=== PATIENT | male | born 1945 | race Caucasian/White ===

== ENCOUNTER 2022-11-12 11:26 | Inpatient (IN) | payer MEDICARE, MEDICAID, SELFPAY ==
[2022-11-12] VITALS (31 sets, daily range): BP systolic 87–140; BP diastolic 47–81; PULSE 44–94; RESP 0–20; TEMP 36.1–36.6; O2SAT 60–99
--- NOTE | ~2022-11-12 | XR_ITS ---
EXAMINATION: XR chest 2V DATE: 11/12/2022 11:58 INDICATION: Altered mental status TECHNIQUE: AP and lateral views of the chest are obtained. COMPARISON: None available FINDINGS: There is mild elevation of the right hemidiaphragm. There are minimal airspace opacities of the right mid and lower lung zones. There is a small right pleural effusion. No pneumothorax is iden tified The heart size is normal. Median sternotomy wires and mediastinal surgical clips are seen, lik roopa from prior coronary artery bypass grafting. A coronary artery stent is noted. There is moderate t horacic spondylosis. IMPRESSION: 1. Airspace opacities of the right middle lower lung zones, consistent with atelectasis versus pneumo quentin. 2. Small right pleural effusion. Reviewed, dictated and finalized at location A. IMPRESSION: 1. Airspace opacities of the right middle lower lung zones, consistent with ate lectasis versus pneumonia. 2. Small right pleural effusion.
--- NOTE | ~2022-11-12 | XR_ITS ---
Portable chest x-ray Comparison: 11/12/2022 Clinical History: Pneumonia Findings: Lungs are clear, without focal consolidation or pleural effusion. Cardiomediastinal silho uette is stable. Bones and soft tissues are unremarkable. Impression: Clear lungs. Reviewed, dictated and finalized at location . Impression: Clear lungs.
--- NOTE | ~2022-11-12 | CT_ITS ---
EXAMINATION: CT brain wo con INDICATION: Transient alteration of awareness COMPARISON: None TECHNIQUE: Standard unenhanced head CT. The dose-length product (DLP) was 908.00 mGy-cm. The mA was a djusted according to patient size. Iterative reconstruction technique was employed. FINDINGS: There is no acute intraparenchymal hemorrhage. No evidence of mass lesion. No evidence of a cute infarction. 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 There is moderate periventricular and s ubcortical hypodensity probably related to small vessel ischemic disease. There is moderate prominenc e of the sulci and ventricles related to cerebral atrophy. Intracranial calcified cerebral atheroscle rosis is noted. There are no extra-axial collections. There is no mass effect or midline shift. Tai es in the globes are likely from ocular lens surgery. There is mild mucosal thickening of the paranas al sinuses. IMPRESSION: 1. No acute intracranial abnormality. 2. Age related findings. Reviewed, dictated and finalized at location A.
--- NOTE | 2022-11-12 11:34 | ECG_ITS ---
Measurements Intervals [place] Rate: 58 P: 42 MS: 157 QRS: 38 QRSD: 114 T: 88 QT: 448 QTc: 441 Interpretive Statements SINUS BRADYCARDIA CANNOT RULE OUT AN OLD INFERIOR LA NO PREVIOUS ECG AVAILABLE FOR COMPARISON Electronically Signed On 11-12-2022 22:16:53 CDT by Yadira Gandara M.D.
[2022-11-12 11:59] LABS: Hematocrit 28.6 % (42.0-52.0); Hemoglobin 9.1 g/dL (14.0-18.0); Mean Corpuscular HGB Conc 31.8 g/dl (32-36); Mean Corpuscular Hemoglobin 33.5 pg (26-34); Mean Corpuscular Volume 105.1 fl (80-100); Mean Platelet Volume 10.2 fl (7.4-10.4); Platelet Count Result 163 k/mm3 (150-375); Red Blood Count 2.72 M/mm3 (4.6-6.20); Red Cell Distribution Width 14.4 % (11.5-14.5)
[2022-11-12 12:10] LABS: INR 1.1; Partial Thromboplastin Time 31.1 SECONDS (22.3-36.8); Prothrombin Time 13.7 Seconds (11.1-14.7)
--- NOTE | 2022-11-12 12:10 | ED.AMS ---
HPI - Altered Mental Status General Chief Complaint: Altered Mental Status Stated Complaint: Altered mental status Time Seen by Provider: 11/12/22 12:03 History of Present Illness HPI narrative: Patient is a 77-year-old male with a history of COPD, CKD, hypertension, CAD presenting with AMS. Patient was reportedly released from [facility] several days ago after being admitted for UTI. He went back to his nursing facility. According to the nursing facility, he was ANO x3 prior to his last admission. Since returning from [facility], he has been A&O x1. He has been noted to be hyperglycemic and hypotensive by nursing staff today. On arrival, he is oriented to self and place but not time. Blood pressures are 80s over 50s. History is limited secondary to patient's altered status but he is following commands in all extremities and he denies any pain at this time. Related Data Home Medications Medication Instructions Recorded Confirmed acetaminophen 325 mg tablet 650 mg PO Q6H PRN Pain 11/12/22 11/12/22 albuterol sulfate 90 mcg/actuation 2 puff inhalation QID PRN 11/12/22 11/12/22 aerosol inhaler Shortness Of Breath Or Wheezing allopurinol 100 mg tablet 300 mg PO DAILY 11/12/22 11/12/22 aspirin 81 mg tablet 81 mg PO DAILY 11/12/22 11/12/22 atorvastatin 80 mg tablet 80 mg PO HS 11/12/22 11/12/22 cholecalciferol (vitamin D3) 50 50 mcg PO DAILY 11/12/22 11/12/22 mcg (2,000 unit) tablet ciprofloxacin HCl 500 mg tablet 500 mg PO BID 11/12/22 11/12/22 cyanocobalamin (vitamin B-12) 1,000 mcg PO DAILY 11/12/22 11/12/22 1,000 mcg tablet (Vitamin B-12) docusate sodium 100 mg capsule 250 mg PO DAILY 11/12/22 11/12/22 (Colace) duloxetine 60 mg capsule,delayed 60 mg PO DAILY 11/12/22 11/12/22 release fluticasone 500 mcg-salmeterol 50 1 inh inhalation Q12H 11/12/22 11/12/22 mcg/dose blistr powdr for inhalation (Wixela Inhub) gabapentin 300 mg capsule 300 mg PO BID 11/12/22 11/12/22 hydrocodone 5 mg-acetaminophen 325 1 tablet PO QID 11/12/22 11/12/22 mg tablet insulin lispro 100 unit/mL 1 sliding scale dose subcut 11/12/22 11/12/22 subcutaneous pen (Humalog KwikPen USEASDIRECTD (U-100) Insulin) isosorbide mononitrate 30 mg 30 mg PO DAILY 11/12/22 11/12/22 tablet,extended release 24 hr lidocaine 4 % topical patch 1 patch topical DAILY 11/12/22 11/12/22 (Blue-Emu Lidocaine Patch) losartan 50 mg tablet 50 mg PO DAILY 11/12/22 11/12/22 melatonin 10 mg tablet 20 mg PO HS 11/12/22 11/12/22 metoprolol succinate 50 mg 50 mg PO DAILY 11/12/22 11/12/22 tablet,extended release 24 hr nitroglycerin 0.4 mg sublingual 0.4 mg sublingual Q5M PRN Chest 11/12/22 11/12/22 tablet Pain omeprazole 40 mg capsule,delayed 40 mg PO DAILY 11/12/22 11/12/22 release ondansetron 4 mg disintegrating 4 mg PO Q6H PRN Nausea 11/12/22 11/12/22 tablet polyethylene glycol 3350 17 gram 17 g PO DAILY 11/12/22 11/12/22 oral powder packet (Miralax) tamsulosin 0.4 mg capsule 0.4 mg PO HS 11/12/22 11/12/22 tiotropium bromide 18 mcg capsule 1 cap inhalation DAILY 11/12/22 11/12/22 with inhalation device Allergies Allergy/AdvReac Type Severity Reaction Status Date / Time tetracycline Allergy Mild Verified 08/18/09 15:36 Review of Systems Review of Systems: All systems reviewed & are unremarkable except as noted in HPI and below PMFSH Past Medical History Medical History (Updated 11/13/22 @ 15:31 by Quiana Weeks MD) Anemia BPH (benign prostatic hyperplasia) CAD (coronary artery disease) Gout HTN (hypertension), malignant Hyperlipidemia Pneumonia Prostate cancer Surgical History Surgical History (Updated 11/12/22 @ 14:27 by Carmencita Siu NP) H/O cataract extraction H/O prostatectomy Hx of CABG Family History Family History (Updated 11/12/22 @ 14:31 by Carmencita Siu NP) Mother Heart disease Cerebrovascular accident Father Hypertension Acute myocardial infarction Social History Social History (Updated
[2022-11-12 12:11] LABS: Alanine Aminotransferase 14 U/L (6-50); Albumin Level 2.7 g/dL (3.5-5.1); Alkaline Phosphatase 67 U/L (38-126); Anion Gap 7 mmol/L (8-16); Aspartate Amino Transferase 35 U/L (17-59); Bilirubin,Total 0.4 mg/dL (0.2-1.3); Blood Urea Nitrogen 21 mg/dL (9-20); Calcium 7.4 mg/dL (8.4-10.2); Carbon Dioxide 23 mmol/L (22-30); Chloride 108 mmol/L (98-107); Estimated CRCL calculation 38 ml/min; Estimated Glomerular Filt Rate 54; Glucose 121 mg/dL (65-110); Potassium 3.9 mmol/L (3.4-5.0); Sodium 138 mmol/L (137-145)
[2022-11-12 12:12] LABS: Lactic Acid Reflex 1.4 mmol/L (0.7-2.0)
[2022-11-12 12:16] LABS: Band Neutrophils Percent 5 % (0-6); Eosinophils Absolute Manual 0.12 K/mm3 (0.02-0.5); Eosinophils Percent Manual 3 % (0-4); Lymphocytes Absolute Manual 1.32 K/mm3 (1.1-4.5); Monocytes Percent Manual 5 % (3-9); Neutrophils Absolute Manual 2.36 K/mm3 (1.3-6.7); Neutrophils Percent Manual 54 % (46-73); Platelet Estimate Adequate (Adequate); Total Cells Counted 100
[2022-11-12 12:17] LABS: Anisocytosis 2+ (NORMAL); Poikilocytosis 2+ (NORMAL); Schistocytes None Seen (NORMAL)
[2022-11-12] MEDS: SODIUM CHLORIDE 0.9% IV 1,000 ML 999 ML IV CONT (12:17)
[2022-11-12 12:32] LABS: Appearance Urine Clear (Clear); Bilirubin Urine Negative (Negative); Blood Urine Negative (Negative); Color Urine Yellow (Yellow); Glucose Urine UA Negative (Negative); Ketones Urine Negative (Negative); Leukocyte Esterase Ur Negative LEU/UL (Negative); Nitrate Urine Negative (Negative); Protein Urine Negative (Negative); Specific Grav Ur 1.012 (1.001-1.035)
[2022-11-12 12:33] LABS: Add Urine Microscopic? NO
[2022-11-12 12:37] LABS: Fractional Inspired Oxygen 21 %; HCO3 VBG 22.2 mEq/l (24.0-30.0); PCO2 VBG 38.7 mmHg (42.0-48.0); PO2 VBG 32.5 mmHg (35.0-45.0); pH VBG 7.377 (7.300-7.400)
[2022-11-12 12:39] LABS: Device ROOM AIR
[2022-11-12] MEDS: PIPERACILLN/TAZ 3.375GM/NS50ML 3.375 GM/50 ML BAG IVPB (13:21)
[2022-11-12 13:24] LABS: Influenza A QL RT-PCR Negative (Negative); Influenza B QL RT-PCR Negative (Negative); SARS-CoV-2 RNA PCR Negative
--- NOTE | 2022-11-12 14:26 | PM.IMHP ---
H&P: HPI History of Present Illness Date/Time: 11/12/22 14:26 Chief Complaint: Altered mental status Narrative: This is a 77-year-old male patient who resides at [facility]. He has a history of COPD, chronic kidney disease, coronary artery disease and hypertension. It was reported that the patient was just discharged from [facility] several days ago for UTI. Patient was then discharged back to the nursing facility and he was alert orientated x1. The patient was noted to be hypotensive per nursing staff as well as hyperglycemic. Patient's blood pressures are 80s over 50s. Initially the patient was only orientated to himself. The patient is now answering questions but falls back asleep easily. He does follow commands. The patient was also wheezing. His white count is found to be 4.0 H&H is 9.1 and 28.6. MCV is 105.1. Influenza a and B and COVID negative. Head CT was read as no acute intracranial abnormality. Age-related findings. Chest x-ray was read as. Airspace opacities of the right middle lower lung zones, consistent with atelectasis versus pneumonia. 2. Small right pleural effusion. The patient was given IV fluids and Zosyn. The patient is being admitted to observation status on the date of service of 11/12/2022. Review of Systems Review of Systems: All systems reviewed & are unremarkable except as noted in HPI and below Constitutional: Constitutional: Reports as per HPI and Reports no additional constitutional complaints Eyes: Eyes: Reports as per HPI and Reports no additional eye complaints ENT: Reports system reviewed and no additional complaints, except as documented and Reports Normal hearing present Cardiovascular: Cardiovascular: Reports no additional cardiovascular complaints Respiratory: Respiratory: Reports no additional respiratory complaints and Reports no additional respiratory complaints Gastrointestinal: Gastrointestinal: Reports as per HPI and Reports no additional gastrointestinal complaints Musculoskeletal: Musculoskeletal: Reports no additional musculoskeletal complaints Integumentary/Breasts: Skin/Breast: Reports system reviewed and no additional complaints, except as docu and Reports as per HPI Neurologic: Reports system reviewed and no additional complaints, except as documented, Reports as per HPI and Reports Normal hearing present Psychiatric: Psychiatric: Reports no additional psychiatric complaints and Reports as per HPI Endocrine: Endocrine: Reports no additional endocrine complaints Hematologic/Lymphatic: Hematologic/Lymphatic: Reports no additional hematologic/lymphatic complaints Allergic/Immunologic: Allergic/Immunologic: Reports no additional allergic/immunologic complaints PMFSH Past Medical History Medical History (Updated 11/12/22 @ 21:15 by Carmencita Siu NP) Anemia BPH (benign prostatic hyperplasia) CAD (coronary artery disease) Gout HTN (hypertension), malignant Hyperlipidemia Pneumonia Prostate cancer Surgical History Surgical History (Updated 11/12/22 @ 14:27 by Carmencita Siu NP) H/O cataract extraction H/O prostatectomy Hx of CABG Family History Family History (Updated 11/12/22 @ 14:31 by Carmencita Siu NP) Mother Heart disease Cerebrovascular accident Father Hypertension Acute myocardial infarction Social History Social History (Updated 11/12/22 @ 21:02 by Carmencita Siu NP) Social History: He is . He has 2 daughters. 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 He is residing at [facility] Code status DNR DNI Smoking status: Former smoker Tobacco type: cigarettes Alcohol intake: unknown Substance use: unknown Spiritual care concerns: No Meds Home Medications and Allergies Home Medications Medication Instructions Recorded Confirmed Type acetaminophen 325 mg tablet 650 mg PO Q6H PRN Pain 11/12/22 11/12/22 History albuterol sulfate 90 mcg/actuation 2 puff inhalation QI
--- NOTE | 2022-11-12 15:21 | ADMGEN ---
This patient, Francisco J Campoverde, was admitted to Medical Room [facility]05 [id number] . Patient/family oriented to hospital policies and general routines including ID bracelet, bed and alarms, visiting hours, pain management, procedures, bathroom and other care routines, personal items, smoking policy, room service/diet, and visiting hours. Information on how to activate the Rapid Response Team has been discussed. Patient/Family are encouraged to report perceived risks to care and to ask questions if they do not understand what they are told or what they should do.
[2022-11-12 17:09] LABS: Glucose Point of Care 100 mg/dl (65-105)
[2022-11-12] MEDS: PIPERACILLIN/TAZOBACTAM SOD 4.5 GM in SODIUM CHLORIDE 0.9% IV 100 ML 200 ML IVPB (22:00)
[2022-11-13] VITALS (12 sets, daily range): BP systolic 113–115; BP diastolic 53–61; PULSE 52–74; RESP 16–20; TEMP 36.4–36.9; O2SAT 96–98
[2022-11-13 01:13] LABS: Glucose Point of Care 84 mg/dl (65-105)
[2022-11-13] MEDS: IPRATROPIUM BR 0.02% INH SOLN 0.5 MG/2.5 ML VIAL INHALATION ×4 (02:00→19:46)
[2022-11-13] MEDS: LEVALBUTEROL NEB 1.25 MG/3 ML 0.63 MG INHALATION ×4 (02:00→19:46)
[2022-11-13 05:38] LABS: Basophils Percent Auto 0.3 % (0.2-1.2); Eosinophils Absolute Auto 0.2 K/mm3 (0-0.3); Eosinophils Percent Auto 5.5 % (0-4.4); Hematocrit 28.7 % (42.0-52.0); Hemoglobin 9.1 g/dL (14.0-18.0); Immature Granulocyte Absolute 0.01 K/mm3 (0.00-0.031); Immature Granulocyte Percent A 0.3 % (0-0.5); Lymphocytes Absolute Auto 1.28 K/mm3 (0.9-3.2); Mean Corpuscular HGB Conc 31.7 g/dl (32-36); Mean Corpuscular Hemoglobin 33.6 pg (26-34); Mean Corpuscular Volume 105.9 fl (80-100); Mean Platelet Volume 9.2 fl (7.4-10.4); Monocytes Absolute Auto 0.2 K/mm3 (0.1-0.6); Monocytes Percent Auto 7.3 % (2.6-8.5); Neutrophils Absolute Auto 1.6 K/mm3 (1.3-6.7); Neutrophils Percent Auto 47.6 % (45.5-73.1); Platelet Count Result 136 k/mm3 (150-375); Red Blood Count 2.71 M/mm3 (4.6-6.20); Red Cell Distribution Width 14.4 % (11.5-14.5); White Blood Count 3.3 K/mm3 (4.5-10.0)
[2022-11-13 05:50] LABS: Bilirubin,Total 0.5 mg/dL (0.2-1.3); Lactate Dehydrogenase 234 U/L (120-246)
[2022-11-13 05:52] LABS: Alanine Aminotransferase 14 U/L (6-50); Albumin Level 2.6 g/dL (3.5-5.1); Alkaline Phosphatase 72 U/L (38-126); Anion Gap 3 mmol/L (8-16); Aspartate Amino Transferase 38 U/L (17-59); Bilirubin,Total 0.5 mg/dL (0.2-1.3); Blood Urea Nitrogen 17 mg/dL (9-20); Calcium 7.7 mg/dL (8.4-10.2); Carbon Dioxide 24 mmol/L (22-30); Chloride 111 mmol/L (98-107); Estimated CRCL calculation 49 ml/min; Estimated Glomerular Filt Rate > 60; Glucose 79 mg/dL (65-110); Lactic Acid Reflex 1.3 mmol/L (0.7-2.0); Lipase 25 U/L (23-300); Magnesium 1.5 mg/dL (1.6-2.3); Potassium 3.9 mmol/L (3.4-5.0); Sodium 138 mmol/L (137-145)
[2022-11-13 05:58] LABS: Transferrin 113 mg/dL (206-381)
[2022-11-13 05:59] LABS: Glucose Point of Care 89 mg/dl (65-105)
[2022-11-13] MEDS: PIPERACILLN/TAZ 3.375GM/NS50ML 3.375 GM/50 ML BAG IVPB ×4 (06:00→23:28)
[2022-11-13 06:23] LABS: Immature Reticulocyte Fraction 11.4 % (3.0-15.9); Reticulocyte Hemoglobin Conten 28.6 pg (28.2-35.7); Reticulocyte Percent 1.23 % (0.7-4.3); Reticulocytes Absolute 0.03 B/L (32.2-175.7)
[2022-11-13 06:57] LABS: Folic Acid 11.8 ng/mL (2.76->20)
[2022-11-13 07:21] LABS: Burr Cells 2+ (NORMAL); Schistocytes None Seen (NORMAL)
[2022-11-13] MEDS: FLUTICASONE/SALMETEROL 230-21 MCG INHALER 1 PUFF 2 PUFF INHALATION ×2 (08:14→19:25)
[2022-11-13 08:39] LABS: Glucose Point of Care 102 mg/dl (65-105)
[2022-11-13] MEDS: METOPROLOL SUCCINATE EXT REL 50 MG TABCR PO (08:43)
[2022-11-13] MEDS: GABAPENTIN 300 MG CAPSULE PO ×2 (08:46→21:35)
[2022-11-13] MEDS: DULoxetine HCL 60 MG CAPSULE.DR PO (08:46)
[2022-11-13] MEDS: LOSARTAN POTASSIUM 50 MG TABLET PO (08:46)
[2022-11-13] MEDS: ISOSORBIDE MONONITRATE 30 MG TAB.ER.24H PO (08:46)
[2022-11-13] MEDS: CHOLECALCIFEROL 1,000 UNITS TABLET 2000 UNITS PO (08:47)
[2022-11-13] MEDS: allopurinoL 300 MG TABLET PO (08:47)
[2022-11-13] MEDS: ASPIRIN 81 MG ENTERIC TABLET PO (08:47)
[2022-11-13] MEDS: CYANOCOBALAMIN 1,000 MCG TABLET 1000 MCG PO (08:47)
[2022-11-13 08:52] LABS: Iron < 10 ug/dL (49-181)
[2022-11-13 09:12] LABS: Hemoglobin A1C 5.6 % (<5.7)
[2022-11-13 09:16] LABS: Percent Iron Saturation 5 % (20-50)
--- NOTE | 2022-11-13 10:34 | PM.IMPN ---
Progress Note: A&P Assessment and Plan (1) Anemia: Code(s): D64.9 - Anemia, unspecified Status: Acute Assessment and Plan: His H&H is 9.1 and 28.6. With no previous labs for comparison. He is not on any anticoagulation and does not appear to have any bleeding (2) CAD (coronary artery disease): Code(s): I25.10 - Atherosclerotic heart disease of [place] coronary artery without angina pectoris Status: Acute Assessment and Plan: Continue with aspirin The patient has a history of a CABG Continue with atorvastatin (3) Hyperlipidemia: Code(s): E78.5 - Hyperlipidemia, unspecified Status: Acute Assessment and Plan: Continue with atorvastatin (4) HTN (hypertension), malignant: Code(s): I10 - Essential (primary) hypertension Status: Acute Assessment and Plan: Continue losartan, metoprolol, and isosorbide (5) Gout: Code(s): M10.9 - Gout, unspecified Status: Acute Assessment and Plan: Continue with allopurinol (6) BPH (benign prostatic hyperplasia): Code(s): N40.0 - Benign prostatic hyperplasia without lower urinary tract symptoms Status: Acute Assessment and Plan: Continue with tamsulosin (7) Hypomagnesemia: Code(s): E83.42 - Hypomagnesemia Status: Acute Assessment and Plan: replace and recheck (8) Iron deficiency anemia: Code(s): D50.9 - Iron deficiency anemia, unspecified Status: Acute Assessment and Plan: start oral iron supplementation check FOBT (9) Pleural effusion: Code(s): J90 - Pleural effusion, not elsewhere classified Status: Acute Assessment and Plan: unsure of etiology IS to bedside zosyn started 11/12 check echo check PCT/CRP Plan DVT prophylaxis with SCDs GI prophylaxis not indicated Code status DNR Subjective Date/time seen: 11/13/22 10:34 Interval history: 77-year-old male from [facility] with history of COPD, kidney disease, heart disease, diabetes and recently discharged from [facility] for treatment for a UTI is presenting with altered mental status, hypotension and hyperglycemia. No overnight events noted. No chest pain or shortness of breath. No nausea, vomiting or diarrhea. No fevers or chills. Review of Systems Review of Systems: 12 point review of systems was assessed and was negative except as noted in the HPI Exam Narrative: General: No acute distress, alert and oriented per baseline HEENT: Atraumatic, normocephalic, mucous membranes moist CV: Regular rate and rhythm, S1, S2 Lungs: Clear to auscultation bilaterally, no rales or crackles noted, no wheezes, good air entry Abdomen: Soft, nontender, nondistended Extremities: Normal to inspection Skin: No rashes noted, no lesions or wounds seen Psych: Euthymic, normal affect Objective Data Vital Signs Vital Signs: Vital Signs - 24 hr 11/12/22 11:20 11/12/22 11:53 11/12/22 12:13 Temperature 97.9 F Pulse Rate 60 60 55 L Respiratory Rate 14 8 L Blood Pressure 87/57 L Pulse Oximetry 97 Oxygen Delivery Room Air Fraction of Inspired Oxygen 11/12/22 12:14 11/12/22 12:15 11/12/22 12:17 Temperature Pulse Rate 58 L 60 59 L Respiratory Rate 16 19 17 Blood Pressure 88/62 L 101/47 L Pulse Oximetry 95 98 96 Oxygen Delivery Fraction of Inspired Oxygen 11/12/22 12:30 11/12/22 12:32 11/12/22 12:33 Temperature Pulse Rate 57 L 57 L 56 L Respiratory Rate 16 17 17 Blood Pressure 112/51 L Pulse Oximetry Oxygen Delivery Fraction of Inspired Oxygen 11/12/22 12:45 11/12/22 12:47 11/12/22 13:00 Temperature Pulse Rate 48 L 56 L 58 L Respiratory Rate 14 17 14 Blood Pressure 107/48 L Pulse Oximetry 99 98 Oxygen Delivery Fraction of Inspired Oxygen 11/12/22 13:02 11/12/22 13:03 11/12/22 13:23 Temperature Pulse Rate 77 58 L 74 Respirator
[2022-11-13 10:59] LABS: CRP 4.2 mg/dL (<1.0)
[2022-11-13] MEDS: DOCUSATE SODIUM 100 MG CAPSULE 200 MG PO (11:36)
[2022-11-13] MEDS: FERROUS SULFATE 324 MG TABLET PO (11:37)
[2022-11-13 11:40] LABS: Procalcitonin 0.1 ng/mL
[2022-11-13] MEDS: MAGNESIUM SULF 2 GM/WATER 50ML 2 GM/50 ML BAG IVPB (11:40)
[2022-11-13 12:03] LABS: Glucose Point of Care 99 mg/dl (65-105)
[2022-11-13 17:26] LABS: Glucose Point of Care 111 mg/dl (65-105)
[2022-11-13 19:58] LABS: Glucose Point of Care 136 mg/dl (65-105)
[2022-11-13] MEDS: ATORVASTATIN 40 MG TABLET 80 MG PO (21:34)
[2022-11-13] MEDS: TAMSULOSIN HCL 0.4 MG CAPSULE PO (21:35)
[2022-11-14] VITALS (13 sets, daily range): BP systolic 108–118; BP diastolic 61–82; PULSE 46–58; RESP 16–20; TEMP 36.4–36.8; O2SAT 95–100
--- NOTE | 2022-11-14 | ECHO_ITS ---
Patient Info Name: Francisco J Campoverde Age: 77 years : 1945 Gender: Male Ht: 66 in Wt: 158 lbs BSA: 1.84 m2 HR: 49 bpm BP: 115 / 82 mmHg Heart Rhythm: Sinus Rhythm Technical Quality: Fair Exam Date: 11/14/2022 10:30 AM Exam Location: [facility] Patient Status: Inpatient Admit Date: 11/13/2022 Staff Ordering Physician: Yaima Stuart DO Restaurant Attendant: Nicole Romero RDCS Attending Provider: Yaima Stuart DO Referring Physician: Narciso GOLD; Exam Type: CA echo dop color flow w con Study Info Indications - EFFUSION Complete two-dimensional, color flow and Doppler transthoracic echocardiogram is performed with contrast to opacify the left ventricle and to improve the deliniation of the left ventricle endocardial borders. Contrast/Agitated Saline Contrast/Ag. Saline: Definity Amount: 2.00 ml Administered By: Nicole Romero [facility] Existing IV Access: Yes IV Access Condition: patent with no signs of infiltration Summary 1. Technically difficult echocardiogram with limited image quality even with definity contrast injection. 2. Mild left ventricular enlargement with moderate global systolic dysfunction. 3. Grade 1 diastolic noncompliance. 4. Dilated left atrium. 5. Sclerotic but not stenotic aortic valve. Left Ventricle Left ventricular chamber dimension is moderately enlarged. Left ventricular systolic function is moderately reduced, estimated at 30-35%. The left ventricular diastolic function is grade I diastolic dysfunction. Right Ventricle Right ventricular chamber dimension is normal. Left Atria Left atrial chamber dimension is moderately enlarged. Right Atria Right atrial chamber dimension is not well visualized. Aortic Valve The aortic valve is trileaflet. There is mild aortic valve sclerosis. Pulmonic Valve The pulmonic valve is not well visualized. Mitral Valve The mitral valve has normal leaflets. Tricuspid Valve The tricuspid valve leaflets are not well visualized. Pericardium/Pleural The pericardium appears normal. Aorta The aortic root size at the sinus of Valsalva is normal. Left Ventricular Outflow Tract Name Value Normal LVOT 2D LVOT Diameter 2.09 cm LVOT Doppler LVOT Peak Gradient 3 mmHg LVOT Mean Gradient 2 mmHg LVOT VTI 17.78 cm LVOT VTI/AV VTI Ratio 0.63 LVOT Stroke Volume 60.82 ml Pulmonic Valve Name Value Normal PV Doppler PV Peak Gradient 3 mmHg Mitral Valve Name Value Normal MV Doppler
[2022-11-14] MEDS: PIPERACILLN/TAZ 3.375GM/NS50ML 3.375 GM/50 ML BAG IVPB ×4 (05:05→23:54)
[2022-11-14 05:52] LABS: Basophils Percent Auto 0.4 % (0.2-1.2); Eosinophils Absolute Auto 0.3 K/mm3 (0-0.3); Eosinophils Percent Auto 5.5 % (0-4.4); Hematocrit 29.2 % (42.0-52.0); Hemoglobin 9.1 g/dL (14.0-18.0); Immature Granulocyte Absolute 0.02 K/mm3 (0.00-0.031); Immature Granulocyte Percent A 0.4 % (0-0.5); Lymphocytes Absolute Auto 2.17 K/mm3 (0.9-3.2); Lymphocytes Percent Auto 47.7 % (18.3-44.2); Mean Corpuscular HGB Conc 31.2 g/dl (32-36); Mean Corpuscular Hemoglobin 32.5 pg (26-34); Mean Corpuscular Volume 104.3 fl (80-100); Mean Platelet Volume 9.8 fl (7.4-10.4); Monocytes Absolute Auto 0.3 K/mm3 (0.1-0.6); Monocytes Percent Auto 6.8 % (2.6-8.5); Neutrophils Absolute Auto 1.8 K/mm3 (1.3-6.7); Neutrophils Percent Auto 39.2 % (45.5-73.1); Platelet Count Result 170 k/mm3 (150-375); Red Cell Distribution Width 14.1 % (11.5-14.5); White Blood Count 4.6 K/mm3 (4.5-10.0)
[2022-11-14 05:55] LABS: IFOB Positive Control Positive; Immunochemical Fecal Occult Bl Negative (N)
[2022-11-14 06:06] LABS: Alanine Aminotransferase 15 U/L (6-50); Albumin Level 2.8 g/dL (3.5-5.1); Alkaline Phosphatase 75 U/L (38-126); Anion Gap 5 mmol/L (8-16); Aspartate Amino Transferase 30 U/L (17-59); Bilirubin,Total 0.5 mg/dL (0.2-1.3); Blood Urea Nitrogen 16 mg/dL (9-20); Calcium 7.9 mg/dL (8.4-10.2); Carbon Dioxide 25 mmol/L (22-30); Chloride 108 mmol/L (98-107); Estimated CRCL calculation 42 ml/min; Estimated Glomerular Filt Rate 59; Glucose 106 mg/dL (65-110); Potassium 3.7 mmol/L (3.4-5.0); Sodium 138 mmol/L (137-145)
[2022-11-14 06:41] LABS: Atypical Lymphocytes Present; Platelet Estimate Adequate (Adequate); Schistocytes None Seen (NORMAL)
[2022-11-14] MEDS: ISOSORBIDE MONONITRATE 30 MG TAB.ER.24H PO (08:17)
[2022-11-14] MEDS: ASPIRIN 81 MG ENTERIC TABLET PO (08:17)
[2022-11-14] MEDS: METOPROLOL SUCCINATE EXT REL 50 MG TABCR PO (08:17)
[2022-11-14] MEDS: GABAPENTIN 300 MG CAPSULE PO ×2 (08:17→20:42)
[2022-11-14] MEDS: DOCUSATE SODIUM 100 MG CAPSULE 200 MG PO (08:17)
[2022-11-14] MEDS: CHOLECALCIFEROL 1,000 UNITS TABLET 2000 UNITS PO (08:17)
[2022-11-14] MEDS: FERROUS SULFATE 324 MG TABLET PO (08:18)
[2022-11-14] MEDS: CYANOCOBALAMIN 1,000 MCG TABLET 1000 MCG PO (08:18)
[2022-11-14] MEDS: DULoxetine HCL 60 MG CAPSULE.DR PO (08:18)
[2022-11-14] MEDS: LOSARTAN POTASSIUM 50 MG TABLET PO (08:18)
[2022-11-14] MEDS: allopurinoL 300 MG TABLET PO (08:18)
[2022-11-14 08:41] LABS: Glucose Point of Care 106 mg/dl (65-105)
[2022-11-14] MEDS: FLUTICASONE/SALMETEROL 230-21 MCG INHALER 1 PUFF 2 PUFF INHALATION ×2 (09:19→21:47)
[2022-11-14] MEDS: IPRATROPIUM BR 0.02% INH SOLN 0.5 MG/2.5 ML VIAL INHALATION ×3 (09:19→21:46)
[2022-11-14] MEDS: LEVALBUTEROL NEB 1.25 MG/3 ML 0.63 MG INHALATION ×3 (09:19→21:45)
[2022-11-14] MEDS: PERFLUTREN LIPID MICROSPHERES 1.5 ML VIAL DILUTED TO 10 ML TOTAL VOLUME IV PUSH (09:32)
[2022-11-14 12:05] LABS: Glucose Point of Care 122 mg/dl (65-105)
--- NOTE | 2022-11-14 13:01 | PM.IMPN ---
Progress Note: A&P Assessment and Plan (1) Anemia: Code(s): D64.9 - Anemia, unspecified Status: Acute Assessment and Plan: His H&H is 9.1 and 28.6. continue to watch He is not on any anticoagulation and does not appear to have any bleeding (2) CAD (coronary artery disease): Code(s): I25.10 - Atherosclerotic heart disease of [place] coronary artery without angina pectoris Status: Acute Assessment and Plan: Continue with aspirin The patient has a history of a CABG Continue with atorvastatin (3) Hyperlipidemia: Code(s): E78.5 - Hyperlipidemia, unspecified Status: Acute Assessment and Plan: Continue with atorvastatin (4) HTN (hypertension), malignant: Code(s): I10 - Essential (primary) hypertension Status: Acute Assessment and Plan: Continue losartan, metoprolol, and isosorbide (5) Gout: Code(s): M10.9 - Gout, unspecified Status: Acute Assessment and Plan: Continue with allopurinol (6) BPH (benign prostatic hyperplasia): Code(s): N40.0 - Benign prostatic hyperplasia without lower urinary tract symptoms Status: Acute Assessment and Plan: Continue with tamsulosin (7) Hypomagnesemia: Code(s): E83.42 - Hypomagnesemia Status: Acute Assessment and Plan: replace and recheck (8) Iron deficiency anemia: Code(s): D50.9 - Iron deficiency anemia, unspecified Status: Acute Assessment and Plan: start oral iron supplementation check FOBT (9) Pleural effusion: Code(s): J90 - Pleural effusion, not elsewhere classified Status: Acute Assessment and Plan: Likely secondary to pneumonia Zosyn started 11/12 Await echo report Pt is still confused Subjective Date/time seen: 11/14/22 13:01 Interval history: 77-year-old male from [facility] with history of COPD, kidney disease, heart disease, diabetes and recently discharged from [facility] for treatment for a UTI is presenting with altered mental status, hypotension and hyperglycemia. CXR shows Airspace opacities of the right middle lower lung zones, consistent with atelectasis versus pneumonia. Small right pleural effusion. BC angle is negative await full report. Pt still appears confused likely secondary to pneumonia Review of Systems Review of Systems: Pt appears confused Exam Narrative: General: Disoriented x3 HEENT: Atraumatic, normocephalic, mucous membranes moist CV: Regular rate and rhythm, S1, S2 Lungs: Clear to auscultation bilaterally, no rales or crackles noted, no wheezes, good air entry Abdomen: Soft, nontender, nondistended Extremities: Normal to inspection Skin: No rashes noted, no lesions or wounds seen Objective Data Vital Signs Vital Signs: Vital Signs - 24 hr 11/13/22 14:20 11/13/22 14:29 11/13/22 14:00 Temperature 36.9 C Pulse Rate 58 L 60 61 Respiratory Rate 16 16 16 Blood Pressure 114/57 L Pulse Oximetry 96 Oxygen Delivery 11/13/22 19:47 11/13/22 20:13 11/14/22 05:29 Temperature 36.8 C 36.5 C Pulse Rate 74 52 L 48 L Respiratory Rate 16 20 20 Blood Pressure 115/61 115/82 Pulse Oximetry 98 100 Oxygen Delivery 11/14/22 08:17 11/14/22 09:22 11/14/22 09:23 Temperature Pulse Rate 56 L 50 L Respiratory Rate 16 Blood Pressure Pulse Oximetry 95 Oxygen Delivery Room Air 11/14/22 09:33 11/14/22 08:00 Temperature Pulse Rate 55 L Respiratory Rate 16 Blood Pressure Pulse Oximetry Oxygen Delivery Room Air Intake/Output Intake/Output: Intake & Output 11/11/22 11/12/22 11/13/22 11/14/22 23:59 23:59 23:59 23:59 Intake Total 1050 850 290 Output Total 200 300 Balance 850 550 290 Meds/Results Medications: Active Medications Generic Name Dose Route Start Last Admin Trade Name Colinq PRN Reason Stop Dose Admin Allopurinol 300 mg 11/13/22 09:00 0
[2022-11-14 16:52] LABS: Glucose Point of Care 169 mg/dl (65-105)
[2022-11-14] MEDS: PANTOPRAZOLE 40 MG TABLET PO (17:00)
[2022-11-14] MEDS: HYDROcodone/acetaminophen (*CRX) 5-325 MG TABLET 1 TAB PO ×2 (17:00→20:42)
[2022-11-14] MEDS: CIPROFLOXACIN 500 MG TAB PO (17:00)
[2022-11-14] MEDS: TOBRAMYCIN/DEXAMETHASONE OP 2.5 ML BTL 1 DROP EACH EYE (17:01)
[2022-11-14 20:13] LABS: Glucose Point of Care 138 mg/dl (65-105)
[2022-11-14] MEDS: ATORVASTATIN 40 MG TABLET 80 MG PO (20:41)
[2022-11-14] MEDS: MELATONIN 5 MG TABLET 20 MG PO (20:41)
[2022-11-14] MEDS: TAMSULOSIN HCL 0.4 MG CAPSULE PO (20:41)
[2022-11-15] VITALS (12 sets, daily range): BP systolic 104–118; BP diastolic 66–74; PULSE 45–70; RESP 16–20; TEMP 36.4–36.8; O2SAT 95–99
[2022-11-15] MEDS: LEVALBUTEROL NEB 1.25 MG/3 ML 0.63 MG INHALATION ×4 (03:37→20:03)
[2022-11-15 05:45] LABS: Basophils Percent Auto 0.3 % (0.2-1.2); Eosinophils Absolute Auto 0.3 K/mm3 (0-0.3); Eosinophils Percent Auto 7.9 % (0-4.4); Hematocrit 26.9 % (42.0-52.0); Hemoglobin 8.5 g/dL (14.0-18.0); Immature Granulocyte Absolute 0.02 K/mm3 (0.00-0.031); Immature Granulocyte Percent A 0.5 % (0-0.5); Lymphocytes Absolute Auto 1.89 K/mm3 (0.9-3.2); Lymphocytes Percent Auto 49.7 % (18.3-44.2); Mean Corpuscular HGB Conc 31.6 g/dl (32-36); Mean Corpuscular Hemoglobin 33.6 pg (26-34); Mean Corpuscular Volume 106.3 fl (80-100); Monocytes Absolute Auto 0.3 K/mm3 (0.1-0.6); Monocytes Percent Auto 6.8 % (2.6-8.5); Neutrophils Absolute Auto 1.3 K/mm3 (1.3-6.7); Neutrophils Percent Auto 34.8 % (45.5-73.1); Platelet Count Result 169 k/mm3 (150-375); Red Blood Count 2.53 M/mm3 (4.6-6.20); Red Cell Distribution Width 14.3 % (11.5-14.5); White Blood Count 3.8 K/mm3 (4.5-10.0)
[2022-11-15 05:48] LABS: Alanine Aminotransferase 13 U/L (6-50); Albumin Level 2.6 g/dL (3.5-5.1); Alkaline Phosphatase 65 U/L (38-126); Anion Gap 4 mmol/L (8-16); Aspartate Amino Transferase 24 U/L (17-59); Bilirubin,Total 0.5 mg/dL (0.2-1.3); Blood Urea Nitrogen 15 mg/dL (9-20); Calcium 7.9 mg/dL (8.4-10.2); Carbon Dioxide 26 mmol/L (22-30); Chloride 108 mmol/L (98-107); Estimated CRCL calculation 42 ml/min; Estimated Glomerular Filt Rate 59; Glucose 106 mg/dL (65-110); Magnesium 1.9 mg/dL (1.6-2.3); Potassium 3.9 mmol/L (3.4-5.0); Sodium 138 mmol/L (137-145)
[2022-11-15] MEDS: PIPERACILLN/TAZ 3.375GM/NS50ML 3.375 GM/50 ML BAG IVPB ×3 (05:55→17:07)
[2022-11-15 06:53] LABS: Large Platelets Present; Platelet Estimate Adequate (Adequate)
[2022-11-15 06:54] LABS: Anisocytosis 1+ (NORMAL); Burr Cells 1+ (NORMAL); Ovalocytes 1+ (NORMAL); Schistocytes Rare (NORMAL)
[2022-11-15 08:30] LABS: Glucose Point of Care 105 mg/dl (65-105)
[2022-11-15] MEDS: CIPROFLOXACIN 500 MG TAB PO (08:57)
[2022-11-15] MEDS: GABAPENTIN 300 MG CAPSULE PO ×2 (08:57→20:33)
[2022-11-15] MEDS: DOCUSATE SODIUM 100 MG CAPSULE 200 MG PO (08:57)
[2022-11-15] MEDS: CYANOCOBALAMIN 1,000 MCG TABLET 1000 MCG PO (08:57)
[2022-11-15] MEDS: ISOSORBIDE MONONITRATE 30 MG TAB.ER.24H PO (08:57)
[2022-11-15] MEDS: HYDROcodone/acetaminophen (*CRX) 5-325 MG TABLET 1 TAB PO ×4 (08:57→20:33)
[2022-11-15] MEDS: METOPROLOL SUCCINATE EXT REL 50 MG TABCR PO (08:58)
[2022-11-15] MEDS: MAGNESIUM OXIDE 400 MG TABLET PO (08:58)
[2022-11-15] MEDS: LOSARTAN POTASSIUM 50 MG TABLET PO (08:58)
[2022-11-15] MEDS: allopurinoL 300 MG TABLET PO (08:58)
[2022-11-15] MEDS: ASPIRIN 81 MG ENTERIC TABLET PO (08:58)
[2022-11-15] MEDS: PANTOPRAZOLE 40 MG TABLET PO ×2 (08:58→17:07)
[2022-11-15] MEDS: DULoxetine HCL 60 MG CAPSULE.DR PO (08:58)
[2022-11-15] MEDS: FERROUS SULFATE 324 MG TABLET PO (08:58)
[2022-11-15] MEDS: CHOLECALCIFEROL 1,000 UNITS TABLET 2000 UNITS PO (08:58)
[2022-11-15] MEDS: LIDOCAINE 5% PATCH 1 PATCH TOPICAL (08:59)
[2022-11-15] MEDS: TOBRAMYCIN/DEXAMETHASONE OP 2.5 ML BTL 1 DROP EACH EYE ×2 (08:59→17:07)
[2022-11-15] MEDS: IPRATROPIUM BR 0.02% INH SOLN 0.5 MG/2.5 ML VIAL INHALATION ×3 (09:00→20:03)
[2022-11-15] MEDS: FLUTICASONE/SALMETEROL 230-21 MCG INHALER 1 PUFF 2 PUFF INHALATION ×2 (09:00→20:04)
[2022-11-15] MEDS: UMECLIDINIUM BROMIDE 62.5 MCG ELLIPTA 1 PUFF INHALATION (09:00)
[2022-11-15 09:32] LABS: Atypical Lymphocytes Present
[2022-11-15 12:06] LABS: Glucose Point of Care 142 mg/dl (65-105)
--- NOTE | 2022-11-15 12:50 | PM.IMPN ---
Progress Note: A&P Assessment and Plan (1) Pleural effusion: Code(s): J90 - Pleural effusion, not elsewhere classified Status: Acute Assessment and Plan: Likely secondary to pneumonia Zosyn started 11/12 day 3 Pt is improving on iv abx can transition to oral steffi and consider dc in 1-2 days time Clinically confusion is improving Cxr ordered for steffi am (2) Anemia: Code(s): D64.9 - Anemia, unspecified Status: Acute Assessment and Plan: His H&H is 8.5. continue to watch FOBT is negative (3) CAD (coronary artery disease): Code(s): I25.10 - Atherosclerotic heart disease of [place] coronary artery without angina pectoris Status: Acute Assessment and Plan: Continue with aspirin The patient has a history of a CABG Continue with atorvastatin (4) Hyperlipidemia: Code(s): E78.5 - Hyperlipidemia, unspecified Status: Acute Assessment and Plan: Continue with atorvastatin (5) HTN (hypertension), malignant: Code(s): I10 - Essential (primary) hypertension Status: Acute Assessment and Plan: Continue losartan, metoprolol, and isosorbide (6) Gout: Code(s): M10.9 - Gout, unspecified Status: Acute Assessment and Plan: Continue with allopurinol (7) BPH (benign prostatic hyperplasia): Code(s): N40.0 - Benign prostatic hyperplasia without lower urinary tract symptoms Status: Acute Assessment and Plan: Continue with tamsulosin (8) Hypomagnesemia: Code(s): E83.42 - Hypomagnesemia Status: Acute Assessment and Plan: replace and recheck (9) Iron deficiency anemia: Code(s): D50.9 - Iron deficiency anemia, unspecified Status: Acute Assessment and Plan: start oral iron supplementation FOBT is negative Subjective Date/time seen: 11/15/22 12:50 Interval history: 77-year-old male from [facility] with history of COPD, kidney disease, heart disease, diabetes and recently discharged from [facility] for treatment for a UTI is presenting with altered mental status, hypotension and hyperglycemia. CXR shows Airspace opacities of the right middle lower lung zones, consistent with atelectasis versus pneumonia. Small right pleural effusion. CT head shows nil acute age related changes only BC angle is negative await full report. Pt appears less confused today Confusion on admission - likely secondary to pneumonia Review of Systems Review of Systems: Mild confusion resolving Exam Narrative: General: Disoriented x1 HEENT: Atraumatic, normocephalic, mucous membranes moist CV: Regular rate and rhythm, S1, S2 Lungs: Clear to auscultation bilaterally, no rales or crackles noted, no wheezes, good air entry Abdomen: Soft, nontender, nondistended Extremities: Normal to inspection Skin: No rashes noted, no lesions or wounds seen Objective Data Vital Signs Vital Signs: Vital Signs - 24 hr 11/14/22 13:52 11/14/22 13:53 11/14/22 14:05 Temperature Pulse Rate 46 L 53 L Respiratory Rate 16 16 Blood Pressure Pulse Oximetry 95 Oxygen Delivery Room Air Fraction of Inspired Oxygen 11/14/22 14:00 11/14/22 20:00 11/14/22 21:46 Temperature 36.4 C L Pulse Rate 56 L 53 L 56 L Respiratory Rate 16 16 16 Blood Pressure 108/61 Pulse Oximetry 100 100 Oxygen Delivery Room Air Fraction of Inspired Oxygen 21 11/14/22 21:53 11/14/22 22:00 11/15/22 03:38 Temperature 36.8 C Pulse Rate 58 L 58 L 56 L Respiratory Rate 16 20 16 Blood Pressure 118/79 Pulse Oximetry 99 Oxygen Delivery Fraction of Inspired Oxygen 11/15/22 03:45 11/15/22 06:00 11/15/22 08:58 Temperature 36.8 C Pulse Rate 56 L 58 L 60 Respiratory Rate 16 20 Blood Pressure 118/74 Pulse Oximetry 99 Oxygen Delivery Fraction of Inspired Oxygen 11/15/22 09:00 11/15/22 09:00 11/15/22 09:10 Temper
[2022-11-15 17:14] LABS: Glucose Point of Care 157 mg/dl (65-105)
[2022-11-15] MEDS: TAMSULOSIN HCL 0.4 MG CAPSULE PO (20:33)
[2022-11-15] MEDS: MELATONIN 5 MG TABLET 20 MG PO (20:33)
[2022-11-15] MEDS: ATORVASTATIN 40 MG TABLET 80 MG PO (20:33)
[2022-11-16] VITALS (9 sets, daily range): BP systolic 124–135; BP diastolic 58; PULSE 56–87; RESP 16–18; TEMP 36.3–36.4; O2SAT 97–100
[2022-11-16] MEDS: PIPERACILLN/TAZ 3.375GM/NS50ML 3.375 GM/50 ML BAG IVPB ×3 (00:14→12:29)
[2022-11-16 00:27] LABS: Glucose Point of Care 134 mg/dl (65-105)
[2022-11-16] MEDS: LEVALBUTEROL NEB 1.25 MG/3 ML 0.63 MG INHALATION ×3 (02:01→13:00)
[2022-11-16] MEDS: IPRATROPIUM BR 0.02% INH SOLN 0.5 MG/2.5 ML VIAL INHALATION ×3 (02:02→13:00)
[2022-11-16 05:47] LABS: Basophils Percent Auto 0.6 % (0.2-1.2); Eosinophils Absolute Auto 0.2 K/mm3 (0-0.3); Eosinophils Percent Auto 6.8 % (0-4.4); Hematocrit 28.9 % (42.0-52.0); Hemoglobin 8.7 g/dL (14.0-18.0); Immature Granulocyte Absolute 0.01 K/mm3 (0.00-0.031); Immature Granulocyte Percent A 0.3 % (0-0.5); Lymphocytes Absolute Auto 1.26 K/mm3 (0.9-3.2); Lymphocytes Percent Auto 37.2 % (18.3-44.2); Mean Corpuscular HGB Conc 30.1 g/dl (32-36); Mean Corpuscular Hemoglobin 33.3 pg (26-34); Mean Corpuscular Volume 110.7 fl (80-100); Mean Platelet Volume 10.1 fl (7.4-10.4); Monocytes Absolute Auto 0.2 K/mm3 (0.1-0.6); Monocytes Percent Auto 6.8 % (2.6-8.5); Neutrophils Absolute Auto 1.6 K/mm3 (1.3-6.7); Neutrophils Percent Auto 48.3 % (45.5-73.1); Platelet Count Result 192 k/mm3 (150-375); Red Blood Count 2.61 M/mm3 (4.6-6.20); Red Cell Distribution Width 14.5 % (11.5-14.5); White Blood Count 3.4 K/mm3 (4.5-10.0)
[2022-11-16 05:58] LABS: Alanine Aminotransferase 12 U/L (6-50); Albumin Level 2.7 g/dL (3.5-5.1); Alkaline Phosphatase 64 U/L (38-126); Anion Gap 8 mmol/L (8-16); Aspartate Amino Transferase 19 U/L (17-59); Bilirubin,Total 0.4 mg/dL (0.2-1.3); Blood Urea Nitrogen 12 mg/dL (9-20); Carbon Dioxide 22 mmol/L (22-30); Chloride 109 mmol/L (98-107); Estimated CRCL calculation 45 ml/min; Estimated Glomerular Filt Rate > 60; Glucose 125 mg/dL (65-110); Magnesium 1.8 mg/dL (1.6-2.3); Potassium 4.1 mmol/L (3.4-5.0); Sodium 139 mmol/L (137-145)
[2022-11-16 06:39] LABS: Ovalocytes 1+ (NORMAL); Platelet Estimate Adequate (Adequate)
[2022-11-16 06:40] LABS: Atypical Lymphocytes Present; Crenated RBC 1+ (NORMAL); Schistocytes None Seen (NORMAL)
[2022-11-16] MEDS: FLUTICASONE/SALMETEROL 230-21 MCG INHALER 1 PUFF 2 PUFF INHALATION (07:00)
[2022-11-16] MEDS: UMECLIDINIUM BROMIDE 62.5 MCG ELLIPTA 1 PUFF INHALATION (07:00)
[2022-11-16 08:09] LABS: Glucose Point of Care 118 mg/dl (65-105)
[2022-11-16] MEDS: DOCUSATE SODIUM 100 MG CAPSULE 200 MG PO (09:31)
[2022-11-16] MEDS: HYDROcodone/acetaminophen (*CRX) 5-325 MG TABLET 1 TAB PO ×2 (09:31→12:29)
[2022-11-16] MEDS: FERROUS SULFATE 324 MG TABLET PO (09:32)
[2022-11-16] MEDS: MAGNESIUM OXIDE 400 MG TABLET PO (09:32)
[2022-11-16] MEDS: DULoxetine HCL 60 MG CAPSULE.DR PO (09:32)
[2022-11-16] MEDS: METOPROLOL SUCCINATE EXT REL 50 MG TABCR PO (09:32)
[2022-11-16] MEDS: CYANOCOBALAMIN 1,000 MCG TABLET 1000 MCG PO (09:32)
[2022-11-16] MEDS: GABAPENTIN 300 MG CAPSULE PO (09:32)
[2022-11-16] MEDS: CHOLECALCIFEROL 1,000 UNITS TABLET 2000 UNITS PO (09:32)
[2022-11-16] MEDS: ASPIRIN 81 MG ENTERIC TABLET PO (09:32)
[2022-11-16] MEDS: LOSARTAN POTASSIUM 50 MG TABLET PO (09:32)
[2022-11-16] MEDS: ISOSORBIDE MONONITRATE 30 MG TAB.ER.24H PO (09:33)
[2022-11-16] MEDS: LIDOCAINE 5% PATCH 1 PATCH TOPICAL (09:33)
[2022-11-16] MEDS: allopurinoL 300 MG TABLET PO (09:33)
[2022-11-16] MEDS: PANTOPRAZOLE 40 MG TABLET PO (09:33)
[2022-11-16] MEDS: MULTIVIT/MIN/PREN/FOL AC/IRON TABLET 1 TAB PO (09:33)
[2022-11-16] MEDS: TOBRAMYCIN/DEXAMETHASONE OP 2.5 ML BTL 1 DROP EACH EYE (09:34)
[2022-11-16 12:10] LABS: Glucose Point of Care 123 mg/dl (65-105)
--- NOTE | 2022-11-16 13:27 | PM.DS ---
DS: Admitting Diagnosis Discharge Date 11/16/22 Admitting Diagnosis Pneumonia DS: Discharge Diagnosis Discharge Diagnosis (1) Pleural effusion: Code(s): J90 - Pleural effusion, not elsewhere classified Status: Acute Assessment and Plan: Antibiotics on discharge. Likely secondary to pneumonia Chest x-ray improved (2) Anemia: Code(s): D64.9 - Anemia, unspecified Status: Acute Assessment and Plan: His H&H is 8.5. continue to watch FOBT is negative (3) CAD (coronary artery disease): Code(s): I25.10 - Atherosclerotic heart disease of [place] coronary artery without angina pectoris Status: Acute Assessment and Plan: Continue with aspirin The patient has a history of a CABG Continue with atorvastatin (4) Hyperlipidemia: Code(s): E78.5 - Hyperlipidemia, unspecified Status: Acute Assessment and Plan: Continue with atorvastatin (5) HTN (hypertension), malignant: Code(s): I10 - Essential (primary) hypertension Status: Acute Assessment and Plan: Continue losartan, metoprolol, and isosorbide (6) Gout: Code(s): M10.9 - Gout, unspecified Status: Acute Assessment and Plan: Continue with allopurinol (7) BPH (benign prostatic hyperplasia): Code(s): N40.0 - Benign prostatic hyperplasia without lower urinary tract symptoms Status: Acute Assessment and Plan: Continue with tamsulosin (8) Hypomagnesemia: Code(s): E83.42 - Hypomagnesemia Status: Acute Assessment and Plan: replace and recheck (9) Iron deficiency anemia: Code(s): D50.9 - Iron deficiency anemia, unspecified Status: Acute Assessment and Plan: start oral iron supplementation FOBT is negative DS: Summary Hospital Course Hospital Course: 77-year-old male came in with a pneumonia. Treated with antibiotics and has improved. Chest x-ray now improved. Antibiotics on discharge. Time Spent with Patient Time attestation: Total time spent providing and/or coordinating discharge services: Exam Narrative: General: Disoriented x1 HEENT: Atraumatic, normocephalic, mucous membranes moist CV: Regular rate and rhythm, S1, S2 Lungs: Clear to auscultation bilaterally, no rales or crackles noted, no wheezes, good air entry Abdomen: Soft, nontender, nondistended Extremities: Normal to inspection Skin: No rashes noted, no lesions or wounds seen DS: Data Data Completed and Pending Labs on day of discharge: Labs from last 24 hours 11/16/22 11/16/22 11/16/22 12:06 08:05 05:22 WBC RBC Hgb Hct MCV MCH MCHC RDW Plt Count MPV Immature Gran % (Auto) Neut % (Auto) Lymph % (Auto) [place] % (Auto) Eos % (Auto) Baso % (Auto) Lymph # (Auto) [place] # (Auto) Eos # (Auto) Baso # (Auto) Abs Immat Gran (auto) Absolute Neuts (auto) Absolute Nucleated RBC Nucleated RBC % Atypical Lymphocytes Platelet Estimate Ovalocytes Crenated Cell Schistocytes Sodium 139 Potassium 4.1 Chloride 109 H Carbon Dioxide 22 Anion Gap 8 BUN 12 Creatinine 1.10 Estim Creat Clear Calc 45 Estimated GFR > 60 Glucose 125 H POC Capillary Glucose 123 H 118 H Calcium 8.0 L Magnesium 1.8 Total Bilirubin 0.4 AST 19 ALT 12 Alkaline Phosphatase 64 Total Protein 5.0 L Albumin 2.7 L 11/16/22 11/16/22 11/15/22 05:22 00:24 17:06 WBC 3.4 L RBC 2.61 L Hgb 8.7 L Hct 28.9 L MCV 110.7 H MCH 33.3 MCHC 30.1 L RDW 14.5 Plt Count 192 MPV 10.1 Immature Gran % (Auto) 0.3 Neut % (Auto) 48.3 Lymph % (Auto) 37.2 [place] % (Auto) 6.8 Eos % (Auto) 6.8 H Baso % (Auto) 0.6 Lymph # (Auto) 1.26 [place] # (Auto) 0.2 Eos # (Auto) 0.2 Baso # (Auto) 0.0 Abs Immat Gran (auto)
[2022-11-16 15:26] LABS: EDCOVIDSCREEN Negative (Negative)
--- NOTE | 2022-11-16 15:27 | PC.NURSE ---
RN called [facility] twice to give report to the nurse with no answer.
[2022-11-16 15:56] LABS: Albumin 2.3 g/dL (3.8-4.8); Alpha 1 Globulin 0.3 g/dL (0.2-0.3); Alpha 2 Globulin 0.8 g/dL (0.5-0.9); Beta 1 Globulin 0.3 g/dL (0.4-0.6); Gamma Globulin 0.7 g/dL (0.8-1.7); Protein, Total 4.7 g/dL (6.1-8.1)
[2022-11-19 19:29] LABS: Soluble Transferrin Receptor 1.15 mg/L (0.76-1.76)
[2022-11-21 00:27] LABS: Creatinine, Random Urine 76 mg/dL (20-320); Total Protein/Creatinine Ratio 316 mg/g creat (25-148)
== END 2022-11-16 16:00 | DRG 194 ==
LOC: ANHED 12:03 → ANH3MED 14:50
PROVIDERS: Emergency Medicine; Nurse Practitioner; Admitting Provider Student in an Organized Health Care Education/Training Program; Emergency Provider Emergency Medicine; Visit Provider Chiropractor
DX: J18.9 Pneumonia, unspecified organism (principal); I13.0 Hypertensive heart and chronic kidney disease with heart failure and stage 1 through stage 4 chronic kidney disease, or unspecified chronic kidney disease; J90 Pleural effusion, not elsewhere classified; J44.0 Chronic obstructive pulmonary disease with (acute) lower respiratory infection; Z20.822 Contact with and (suspected) exposure to COVID-19; I25.10 Atherosclerotic heart disease of native coronary artery without angina pectoris; I50.9 Heart failure, unspecified; E11.22 Type 2 diabetes mellitus with diabetic chronic kidney disease; N18.9 Chronic kidney disease, unspecified; E11.65 Type 2 diabetes mellitus with hyperglycemia; G47.33 Obstructive sleep apnea (adult) (pediatric); I95.9 Hypotension, unspecified; D50.9 Iron deficiency anemia, unspecified; E78.5 Hyperlipidemia, unspecified; F32.A Depression, unspecified; M10.9 Gout, unspecified; N40.0 Benign prostatic hyperplasia without lower urinary tract symptoms; E83.42 Hypomagnesemia; Z95.1 Presence of aortocoronary bypass graft; Z85.46 Personal history of malignant neoplasm of prostate; Z98.49 Cataract extraction status, unspecified eye; Z87.891 Personal history of nicotine dependence; I25.2 Old myocardial infarction
CPT/HCPCS: 36415; 70450; 71045; 71046; 80053; 81003; 82247; 82248; 82274; 82570; 82607; 82728; 82746; 82803; 82948; 83036; 83540; 83550; 83605; 83615; 83690; 83735; 84145; 84155; 84156; 84165; 84166; 84238; 84443; 84466; 85025; 85046; 85610; 85730; 86140; 86880; 87040; 87426; 87636; 93005; 94640; 96361; 96365; 96367; 96376; 99285; A9270; C8929; C9803; G0378; J2543; J3475; J7030; Q9957

== ENCOUNTER 2022-12-03 04:05 | Inpatient (IN) | payer MEDICARE, MEDICAID, SELFPAY ==
[2022-12-03] VITALS (24 sets, daily range): BP systolic 80–114; BP diastolic 45–71; PULSE 68–100; RESP 15–24; TEMP 36.4–38.3; O2SAT 95–100; BMI 23.8
--- NOTE | ~2022-12-03 | XR_ITS ---
EXAMINATION: XR chest 1V portable DATE: 12/03/2022 05:02 INDICATION: Weakness. TECHNIQUE: A single frontal view of the chest was obtained. COMPARISON: Chest single view 11/16/2022 FINDINGS: There are airspace opacities in the lower lung zones. No pleural effusion or pneumothorax. The heart size is normal. Median sternotomy wires and mediastinal surgical clips are seen, likely fro m prior coronary artery bypass grafting. IMPRESSION: 1. Airspace opacities in the lower lung zones, consistent with atelectasis versus pneumonia. Reviewed, dictated and finalized at location A. IMPRESSION: 1. Airspace opacities in the lower lung zones, consistent with atelectasis vers us pneumonia.
--- NOTE | 2022-12-03 04:12 | ECG_ITS ---
Measurements Intervals [place] Rate: 99 P: 65 GA: 163 QRS: 39 QRSD: 106 T: -11 QT: 354 QTc: 455 Interpretive Statements SINUS RHYTHM ATRIAL PREMATURE COMPLEX CONSIDER INFERIOR INFARCT, AGE INDETERMINATE BORDERLINE ST-T WAVE ABNORMALITY- INF/HIGH LAT LEADS BASELINE ARTIFACT- I, III, AVL, AVF ABNORMAL ECG COMPARED TO ECG 11/12/2022 11:28:03 SINUS RHYTHM NOW PRESENT Electronically Signed On 12-03-2022 8:50:54 CDT by Sunil Guzman D.O.
[2022-12-03] MEDS: ACETAMINOPHEN 500 MG TABLET 1000 MG PO (04:32)
[2022-12-03] MEDS: SODIUM CHLORIDE 0.9% IV 1,000 ML 999 ML IV CONT (04:33)
--- NOTE | 2022-12-03 04:39 | ED.GENADULT ---
HPI - General Adult General Chief complaint: Weakness Stated complaint: LETHARGY, FEBRILE Time Seen by Provider: 12/03/22 04:12 History of Present Illness HPI narrative: Patient is a 77-year-old gentleman who presents the emergency department with chief complaint of altered mental status. Per the local nursing facility they were doing the rounds at 4:00 in the morning and attempted to wake the patient up. When they woke him up he felt hot to the touch had a temperature of 102 and was very slow to respond. The patient has no other complaints at this time denies chest pain denies shortness of breath denies abdominal pain vomiting or diarrhea. Related Data Home Medications Medication Instructions Recorded Confirmed acetaminophen 325 mg tablet 650 mg PO Q6H PRN Pain 11/12/22 11/12/22 albuterol sulfate 90 mcg/actuation 2 puff inhalation QID PRN 11/12/22 11/12/22 aerosol inhaler Shortness Of Breath Or Wheezing allopurinol 100 mg tablet 300 mg PO DAILY 11/12/22 11/12/22 aspirin 81 mg tablet 81 mg PO DAILY 11/12/22 11/12/22 atorvastatin 80 mg tablet 80 mg PO HS 11/12/22 11/12/22 cholecalciferol (vitamin D3) 50 50 mcg PO DAILY 11/12/22 11/12/22 mcg (2,000 unit) tablet ciprofloxacin HCl 500 mg tablet 500 mg PO BID 11/12/22 11/12/22 cyanocobalamin (vitamin B-12) 1,000 mcg PO DAILY 11/12/22 11/12/22 1,000 mcg tablet (Vitamin B-12) docusate sodium 100 mg capsule 250 mg PO DAILY 11/12/22 11/12/22 (Colace) duloxetine 60 mg capsule,delayed 60 mg PO DAILY 11/12/22 11/12/22 release fluticasone 500 mcg-salmeterol 50 1 inh inhalation Q12H 11/12/22 11/12/22 mcg/dose blistr powdr for inhalation (Wixela Inhub) gabapentin 300 mg capsule 300 mg PO BID 11/12/22 11/12/22 hydrocodone 5 mg-acetaminophen 325 1 tablet PO QID 11/12/22 11/12/22 mg tablet insulin lispro 100 unit/mL 1 sliding scale dose subcut 11/12/22 11/12/22 subcutaneous pen (Humalog KwikPen USEASDIRECTD (U-100) Insulin) isosorbide mononitrate 30 mg 30 mg PO DAILY 11/12/22 11/12/22 tablet,extended release 24 hr lidocaine 4 % topical patch 1 patch topical DAILY 11/12/22 11/12/22 (Blue-Emu Lidocaine Patch) losartan 50 mg tablet 50 mg PO DAILY 11/12/22 11/12/22 melatonin 10 mg tablet 20 mg PO HS 11/12/22 11/12/22 metoprolol succinate 50 mg 50 mg PO DAILY 11/12/22 11/12/22 tablet,extended release 24 hr nitroglycerin 0.4 mg sublingual 0.4 mg sublingual Q5M PRN Chest 11/12/22 11/12/22 tablet Pain omeprazole 40 mg capsule,delayed 40 mg PO DAILY 11/12/22 11/12/22 release ondansetron 4 mg disintegrating 4 mg PO Q6H PRN Nausea 11/12/22 11/12/22 tablet polyethylene glycol 3350 17 gram 17 g PO DAILY 11/12/22 11/12/22 oral powder packet (Miralax) tamsulosin 0.4 mg capsule 0.4 mg PO HS 11/12/22 11/12/22 tiotropium bromide 18 mcg capsule 1 cap inhalation DAILY 11/12/22 11/12/22 with inhalation device magnesium oxide 400 mg PO DAILY 11/13/22 11/13/22 insulin detemir U-100 100 unit/mL 10 unit subcut 12/03/22 (3 mL) subcutaneous pen (Levemir FlexPen) Allergies Allergy/AdvReac Type Severity Reaction Status Date / Time tetracycline Allergy Mild Unknown Verified 12/03/22 04:59 Review of Systems Review of Systems: A 10 system review of systems was completed on the patient and is negative except for what is stated in the HPI. Nursing and ancillary documentation was reviewed. [facility] Past Medical History Medical History Anemia BPH (benign prostatic hyperplasia) CAD (coronary artery disease) Gout HTN (hypertension), malignant Hyperlipidemia Pneumonia Prostate cancer Surgical History Surgical History H/O cataract extraction H/O prostatectomy Hx of CABG Family History Family History Mother Heart disease Cerebrovascular accident Father Hypertension A
[2022-12-03 04:54] LABS: Basophils Percent Auto 0.3 % (0.2-1.2); Eosinophils Absolute Auto 0.1 K/mm3 (0-0.3); Eosinophils Percent Auto 0.8 % (0-4.4); Hematocrit 32.5 % (42.0-52.0); Hemoglobin 10.2 g/dL (14.0-18.0); Immature Granulocyte Absolute 0.05 K/mm3 (0.00-0.031); Immature Granulocyte Percent A 0.5 % (0-0.5); Lymphocytes Absolute Auto 1.29 K/mm3 (0.9-3.2); Lymphocytes Percent Auto 11.9 % (18.3-44.2); Mean Corpuscular HGB Conc 31.4 g/dl (32-36); Mean Corpuscular Hemoglobin 33.4 pg (26-34); Mean Corpuscular Volume 106.6 fl (80-100); Mean Platelet Volume 10.2 fl (7.4-10.4); Monocytes Absolute Auto 0.7 K/mm3 (0.1-0.6); Monocytes Percent Auto 6.4 % (2.6-8.5); Neutrophils Absolute Auto 8.7 K/mm3 (1.3-6.7); Neutrophils Percent Auto 80.1 % (45.5-73.1); Platelet Count Result 195 k/mm3 (150-375); Red Blood Count 3.05 M/mm3 (4.6-6.20); Red Cell Distribution Width 16.1 % (11.5-14.5); White Blood Count 10.8 K/mm3 (4.5-10.0)
[2022-12-03 05:06] LABS: Appearance Urine Clear (Clear); Bilirubin Urine Negative (Negative); Blood Urine Negative (Negative); Color Urine Yellow (Yellow); Glucose Urine UA Negative (Negative); Ketones Urine Negative (Negative); Leukocyte Esterase Ur Negative LEU/UL (Negative); Nitrate Urine Negative (Negative); Protein Urine Negative (Negative); Specific Grav Ur 1.013 (1.001-1.035); pH Urine 8.5 (5.0-9.0)
[2022-12-03 05:08] LABS: Alanine Aminotransferase 14 U/L (6-50); Albumin Level 3.2 g/dL (3.5-5.1); Alkaline Phosphatase 74 U/L (38-126); Anion Gap 6 mmol/L (8-16); Aspartate Amino Transferase 40 U/L (17-59); Bilirubin,Total 0.9 mg/dL (0.2-1.3); Blood Urea Nitrogen 22 mg/dL (9-20); Calcium 8.3 mg/dL (8.4-10.2); Carbon Dioxide 21 mmol/L (22-30); Chloride 109 mmol/L (98-107); Estimated CRCL calculation 41 ml/min; Estimated Glomerular Filt Rate 49; Glucose 91 mg/dL (65-110); Potassium 5.1 mmol/L (3.4-5.0); Sodium 136 mmol/L (137-145)
[2022-12-03 05:10] LABS: Alanine Aminotransferase 14 U/L (6-50); Albumin Level 3.3 g/dL (3.5-5.1); Alkaline Phosphatase 75 U/L (38-126); Anion Gap 7 mmol/L (8-16); Aspartate Amino Transferase 40 U/L (17-59); Bilirubin,Total 0.9 mg/dL (0.2-1.3); Blood Urea Nitrogen 22 mg/dL (9-20); Calcium 8.3 mg/dL (8.4-10.2); Carbon Dioxide 20 mmol/L (22-30); Chloride 109 mmol/L (98-107); Estimated CRCL calculation 38 ml/min; Estimated Glomerular Filt Rate 45; Glucose 92 mg/dL (65-110); Lactic Acid Reflex 1.2 mmol/L (0.7-2.0); Sodium 136 mmol/L (137-145)
[2022-12-03 05:18] LABS: Add Urine Microscopic? NO
[2022-12-03 05:25] LABS: Platelet Estimate Adequate (Adequate)
[2022-12-03 05:26] LABS: Anisocytosis 2+ (NORMAL); Burr Cells 3+ (NORMAL); Crenated RBC 3+ (NORMAL); Macrocytosis 2+ (NORMAL); Microcytosis 1+ (NORMAL); Poikilocytosis 3+ (NORMAL)
[2022-12-03 05:27] LABS: Acanthocytes 1+ (NORMAL); Schistocytes 1+ (NORMAL)
[2022-12-03 05:28] LABS: Lipase < 10 U/L (23-300)
[2022-12-03 05:35] LABS: Influenza A QL RT-PCR Negative (Negative); Influenza B QL RT-PCR Negative (Negative); RSV RNA, RT-PCR Negative (Negative); SARS-CoV-2 RNA PCR Negative (Negative)
[2022-12-03 05:39] LABS: Procalcitonin 1.4 ng/mL
[2022-12-03] MEDS: ENOXAPARIN 80 MG/0.8 ML SYRINGE 70 MG SUB-Q ×2 (05:53→20:18)
[2022-12-03] MEDS: ASPIRIN 81 MG CHEWABLE TABLET 324 MG PO (05:53)
--- NOTE | 2022-12-03 07:43 | PC.NURSE ---
Lab called for new green top. SO [place] made aware.
[2022-12-03] MEDS: SODIUM CHLORIDE 0.9% IV 500 ML IV CONT (08:29)
[2022-12-03 08:38] LABS: Glucose Point of Care 150 mg/dl (65-105)
--- NOTE | 2022-12-03 09:38 | ADMGEN ---
This patient, Francisco J Campoverde, was admitted to IMU Room 204-01 at 0804. Patient/family oriented to hospital policies and general routines including ID bracelet, bed and alarms, visiting hours, pain management, procedures, bathroom and other care routines, personal items, smoking policy, room service/diet, and visiting hours. Information on how to activate the Rapid Response Team has been discussed. Patient/Family are encouraged to report perceived risks to care and to ask questions if they do not understand what they are told or what they should do.
--- NOTE | 2022-12-03 10:44 | PM.IMHP ---
H&P: HPI History of Present Illness Date/Time: 12/03/22 10:44 Chief Complaint: altered mental status Narrative: This is a 77-year-old male who presents to the ED with complaint of altered mental status he is brought from the shelter. Is a poor historian. While at [facility] in the morning he was hard to wake up and had a temperature 102? and hence brought to the ED for evaluation. Is currently feeling better and is eating his breakfast. He denies any chest pain shortness of breath abdominal pain nausea vomiting. He denies any leg swelling as well. He also reports no cough. ED evaluation revealed airspace opacities in the lower lung zones in his chest x-ray. He was recently admitted and had ejection fraction of 30-35 person is echocardiogram done on 11/14/2022. His troponin came back elevated at 6.5. EKG had nonspecific ST-T changes. No acute ST elevations noted. He was given some antibiotics for possible pneumonia and sepsis and admitted for further evaluation and management Review of Systems Review of Systems: - CONSTITUTIONAL: Denies weight loss, reported fever and chills. - HEENT: Denies changes in vision and hearing - RESPIRATORY: Denies SOB and cough. - CV: Denies palpitations and CP. - GI: Denies abdominal pain, nausea, vomiting and diarrhea. - : Denies dysuria and urinary frequency. - MSK: Denies myalgia and joint pain. - SKIN: Denies rash and pruritus. - NEUROLOGICAL: Denies headache and syncope. - PSYCHIATRIC: Denies recent changes in mood. Denies anxiety and depression. [facility] Past Medical History Medical History Anemia BPH (benign prostatic hyperplasia) CAD (coronary artery disease) Gout HTN (hypertension), malignant Hyperlipidemia Pneumonia Prostate cancer Surgical History Surgical History H/O cataract extraction H/O prostatectomy Hx of CABG Family History Family History Mother Heart disease Cerebrovascular accident Father Hypertension Acute myocardial infarction Social History Social History Social History: He is . He has 2 daughters. 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 He is residing at [facility] Code status DNR DNI Smoking status: Former smoker Alcohol intake: never Substance use: never Substance use type: does not use Spiritual care concerns: No Meds Home Medications and Allergies Home Medications Medication Instructions Recorded Confirmed Type acetaminophen 325 mg tablet 650 mg PO Q6H PRN Pain (Scale 11/12/22 12/03/22 History Score 1-3) albuterol sulfate 90 mcg/actuation 2 puff inhalation QID PRN 11/12/22 12/03/22 History aerosol inhaler Shortness Of Breath Or Wheezing allopurinol 100 mg tablet 300 mg PO DAILY 11/12/22 12/03/22 History aspirin 81 mg tablet 81 mg PO DAILY 11/12/22 12/03/22 History atorvastatin 80 mg tablet 80 mg PO HS 11/12/22 12/03/22 History cholecalciferol (vitamin D3) 50 50 mcg PO DAILY 11/12/22 12/03/22 History mcg (2,000 unit) tablet cyanocobalamin (vitamin B-12) 1,000 mcg PO DAILY 11/12/22 12/03/22 History 1,000 mcg tablet (Vitamin B-12) docusate sodium 100 mg capsule 250 mg PO DAILY 11/12/22 12/03/22 History (Colace) duloxetine 60 mg capsule,delayed 60 mg PO DAILY 11/12/22 12/03/22 History release fluticasone 500 mcg-salmeterol 50 1 inh inhalation Q12H 11/12/22 12/03/22 History mcg/dose blistr powdr for inhalation (Wixela Inhub) gabapentin 300 mg capsule 300 mg PO BID 11/12/22 12/03/22 History hydrocodone 5 mg-acetaminophen 325 1 tablet PO QID 11/12/22 12/03/22 History mg tablet insulin lispro 100 unit/mL 1 sliding scale dose subcut 11/12/22 12/03/22 History subcutaneous pen (Humalog KwikPen USEASDIRECTD (U-1
[2022-12-03] MEDS: allopurinoL 300 MG TABLET PO (12:28)
[2022-12-03] MEDS: DOCUSATE SODIUM 100 MG CAPSULE 200 MG PO (12:28)
[2022-12-03] MEDS: DULoxetine HCL 60 MG CAPSULE.DR PO (12:28)
[2022-12-03] MEDS: CHOLECALCIFEROL 1,000 UNITS TABLET 2000 UNITS PO (12:28)
--- NOTE | 2022-12-03 14:35 | PM.CNCAR ---
Assessment and Plan Assessment and plan (1) Acute non-ST elevation myocardial infarction (NSTEMI): Code(s): I21.4 - Non-ST elevation (NSTEMI) myocardial infarction Status: Acute Plan NSTEMI, in setting of advanced dementia, fraility and sepsis, possible demand ischemia CAD with Hx of CABG Cardiomyopathy EF 35% Sepsis likely related to pneumonia JOSÉ Plan Heparin for 48 hours ASA 81 mg daily Start loading dose 300 mg today then 75 mg daily afterwards Lipitor 80 mg daily History of Present Illness History of Present Illness Consult date/time: 12/03/22 14:35 Reason For Visit: Pneumonia, altered mental status, non-STEMI Narrative: Patient presented with altered mental status with minimal verbal response. [facility] lives [facility] and found unresponsive with fever. work up included cardiac enzymes that was significantly elevated. Patient denies any chest pain or discomfort. Review of Systems Review of Systems: ROS unobtainable: Yes unobtainable due to mental status PMFSH Past Medical History Medical History Anemia BPH (benign prostatic hyperplasia) CAD (coronary artery disease) Gout HTN (hypertension), malignant Hyperlipidemia Pneumonia Prostate cancer Surgical History Surgical History H/O cataract extraction H/O prostatectomy Hx of CABG Family History Family History Mother Heart disease Cerebrovascular accident Father Hypertension Acute myocardial infarction Social History Social History Social History: He is . He has 2 daughters. 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 He is residing at [facility] Code status DNR DNI Smoking status: Former smoker Alcohol intake: never Substance use: never Substance use type: does not use Spiritual care concerns: No Meds Home Medications and Allergies Home Medications Medication Instructions Recorded Confirmed Type acetaminophen 325 mg tablet 650 mg PO Q6H PRN Pain (Scale 11/12/22 12/03/22 History Score 1-3) albuterol sulfate 90 mcg/actuation 2 puff inhalation QID PRN 11/12/22 12/03/22 History aerosol inhaler Shortness Of Breath Or Wheezing allopurinol 100 mg tablet 300 mg PO DAILY 11/12/22 12/03/22 History aspirin 81 mg tablet 81 mg PO DAILY 11/12/22 12/03/22 History atorvastatin 80 mg tablet 80 mg PO HS 11/12/22 12/03/22 History cholecalciferol (vitamin D3) 50 50 mcg PO DAILY 11/12/22 12/03/22 History mcg (2,000 unit) tablet cyanocobalamin (vitamin B-12) 1,000 mcg PO DAILY 11/12/22 12/03/22 History 1,000 mcg tablet (Vitamin B-12) docusate sodium 100 mg capsule 250 mg PO DAILY 11/12/22 12/03/22 History (Colace) duloxetine 60 mg capsule,delayed 60 mg PO DAILY 11/12/22 12/03/22 History release fluticasone 500 mcg-salmeterol 50 1 inh inhalation Q12H 11/12/22 12/03/22 History mcg/dose blistr powdr for inhalation (Wixela Inhub) gabapentin 300 mg capsule 300 mg PO BID 11/12/22 12/03/22 History hydrocodone 5 mg-acetaminophen 325 1 tablet PO QID 11/12/22 12/03/22 History mg tablet insulin lispro 100 unit/mL 1 sliding scale dose subcut 11/12/22 12/03/22 History subcutaneous pen (Humalog KwikPen USEASDIRECTD (U-100) Insulin) isosorbide mononitrate 30 mg 30 mg PO DAILY 11/12/22 12/03/22 History tablet,extended release 24 hr lidocaine 4 % topical patch 1 patch topical DAILY 11/12/22 12/03/22 History (Blue-Emu Lidocaine Patch) losartan 50 mg tablet 50 mg PO DAILY 11/12/22 12/03/22 History melatonin 10 mg tablet 20 mg PO HS 11/12/22 12/03/22 History metoprolol succinate 50 mg 50 mg PO DAILY 11/12/22 12/03/22 History tablet,extended release 24 hr nitroglycerin 0.4 mg sublingual 0.4 mg sublingual Q5M PRN Chest 11/12/22 0
[2022-12-03] MEDS: FLUTICASONE/SALMETEROL 230-21 MCG INHALER 1 PUFF 2 PUFF INHALATION (16:35)
[2022-12-03] MEDS: UMECLIDINIUM BROMIDE 62.5 MCG ELLIPTA 1 PUFF INHALATION (16:40)
[2022-12-03] MEDS: GABAPENTIN 300 MG CAPSULE PO (17:05)
[2022-12-03] MEDS: PANTOPRAZOLE 40 MG TABLET PO (17:05)
[2022-12-03 17:59] LABS: Glucose Point of Care 121 mg/dl (65-105)
[2022-12-03] MEDS: TAMSULOSIN HCL 0.4 MG CAPSULE PO (20:18)
[2022-12-03] MEDS: ATORVASTATIN 40 MG TABLET 80 MG PO (20:18)
[2022-12-03 20:25] LABS: Glucose Point of Care 148 mg/dl (65-105)
--- NOTE | 2022-12-03 22:16 | PC.NURSE ---
Daughter Nereyda Frost updated to patient status. She requests both renal and urologic consult due to recurrent UTI. States father has them frequently and each one seems worse than the last.
--- NOTE | 2022-12-03 23:24 | PC.NURSE ---
Lilia called for update, she just found from daughter Margot that he is in the hospital. Explained condition. She requests that cardiology speak with patients assistant professor of english Dr Mahin Galaviz and notes that her see Dr Cline for nephrology in [facility] as well.
[2022-12-04] VITALS (15 sets, daily range): BP systolic 106–152; BP diastolic 60–86; PULSE 51–95; RESP 16–20; TEMP 35.5–36.7; O2SAT 97–100
[2022-12-04 04:27] LABS: Basophils Percent Auto 0.3 % (0.2-1.2); Eosinophils Absolute Auto 0.2 K/mm3 (0-0.3); Eosinophils Percent Auto 2.9 % (0-4.4); Hematocrit 27.7 % (42.0-52.0); Hemoglobin 8.7 g/dL (14.0-18.0); Immature Granulocyte Absolute 0.03 K/mm3 (0.00-0.031); Immature Granulocyte Percent A 0.4 % (0-0.5); Lymphocytes Absolute Auto 1.48 K/mm3 (0.9-3.2); Lymphocytes Percent Auto 21.3 % (18.3-44.2); Mean Corpuscular HGB Conc 31.4 g/dl (32-36); Mean Corpuscular Hemoglobin 33.9 pg (26-34); Mean Corpuscular Volume 107.8 fl (80-100); Monocytes Absolute Auto 0.4 K/mm3 (0.1-0.6); Monocytes Percent Auto 5.2 % (2.6-8.5); Neutrophils Absolute Auto 4.9 K/mm3 (1.3-6.7); Neutrophils Percent Auto 69.9 % (45.5-73.1); Platelet Count Result 151 k/mm3 (150-375); Red Blood Count 2.57 M/mm3 (4.6-6.20)
[2022-12-04 04:37] LABS: Alanine Aminotransferase 13 U/L (6-50); Albumin Level 2.8 g/dL (3.5-5.1); Alkaline Phosphatase 72 U/L (38-126); Anion Gap 4 mmol/L (8-16); Aspartate Amino Transferase 41 U/L (17-59); Bilirubin,Total 0.7 mg/dL (0.2-1.3); Blood Urea Nitrogen 19 mg/dL (9-20); Calcium 8.3 mg/dL (8.4-10.2); Carbon Dioxide 24 mmol/L (22-30); Chloride 111 mmol/L (98-107); Estimated CRCL calculation 48 ml/min; Estimated Glomerular Filt Rate > 60; Glucose 102 mg/dL (65-110); Magnesium 1.5 mg/dL (1.6-2.3); Potassium 4.1 mmol/L (3.4-5.0); Sodium 139 mmol/L (137-145)
[2022-12-04] MEDS: FLUTICASONE/SALMETEROL 230-21 MCG INHALER 1 PUFF 2 PUFF INHALATION ×2 (08:01→21:41)
[2022-12-04] MEDS: UMECLIDINIUM BROMIDE 62.5 MCG ELLIPTA 1 PUFF INHALATION (08:01)
[2022-12-04 08:14] LABS: Glucose Point of Care 104 mg/dl (65-105)
[2022-12-04] MEDS: PANTOPRAZOLE 40 MG TABLET PO ×2 (09:00→16:55)
[2022-12-04] MEDS: DULoxetine HCL 60 MG CAPSULE.DR PO (09:01)
[2022-12-04] MEDS: allopurinoL 300 MG TABLET PO (09:01)
[2022-12-04] MEDS: ENOXAPARIN 80 MG/0.8 ML SYRINGE 70 MG SUB-Q ×2 (09:01→20:58)
[2022-12-04] MEDS: CHOLECALCIFEROL 1,000 UNITS TABLET 2000 UNITS PO (09:01)
[2022-12-04] MEDS: MAGNESIUM OXIDE 400 MG TABLET PO (09:01)
[2022-12-04] MEDS: GABAPENTIN 300 MG CAPSULE PO ×2 (09:01→16:54)
[2022-12-04] MEDS: CYANOCOBALAMIN 1,000 MCG TABLET 1000 MCG PO (09:01)
[2022-12-04] MEDS: MAGNESIUM SULF 2 GM/WATER 50ML 2 GM/50 ML BAG IVPB (09:02)
[2022-12-04] MEDS: ASPIRIN 81 MG CHEWABLE TABLET PO (09:03)
--- NOTE | 2022-12-04 11:04 | PM.PNCARD ---
Progress Note: A&P Assessment and Plan (1) Acute non-ST elevation myocardial infarction (NSTEMI): Code(s): I21.4 - Non-ST elevation (NSTEMI) myocardial infarction Status: Acute Plan NSTEMI, in setting of dementia, frailty and sepsis CAD with Hx of CABG Cardiomyopathy EF 35% Sepsis likely related to pneumonia JOSÉ Plan Heparin for 48 hours ASA 81 mg daily Start loading dose 300 mg today then 75 mg daily afterwards Lipitor 80 mg daily NPO after midnight for LHC tomorrow after discussion with family in AM Subjective Date/time seen: 12/04/22 11:04 Interval history: No acute events more awake today Review of Systems Review of Systems: 12 points review of system is negative Objective Data Vital Signs Vital Signs: Vital Signs - 24 hr 12/03/22 12:00 12/03/22 12:00 12/03/22 14:00 Temperature 36.4 C Pulse Rate 76 74 76 Respiratory Rate 16 Blood Pressure 82/52 L Pulse Oximetry 100 Oxygen Delivery 12/03/22 12:00 12/03/22 16:41 12/03/22 16:00 Temperature 36.6 C Pulse Rate 68 Respiratory Rate 16 Blood Pressure 114/58 L Pulse Oximetry 98 99 Oxygen Delivery Room Air Room Air 12/03/22 16:00 12/03/22 18:00 12/03/22 16:00 Temperature Pulse Rate 73 78 Respiratory Rate Blood Pressure Pulse Oximetry Oxygen Delivery Room Air 12/03/22 20:00 12/03/22 20:00 12/03/22 20:00 Temperature 36.6 C Pulse Rate 68 75 Respiratory Rate 16 Blood Pressure 112/66 Pulse Oximetry 100 Oxygen Delivery Room Air 12/03/22 22:00 12/04/22 00:00 12/04/22 00:00 Temperature 36.4 C Pulse Rate 71 71 Respiratory Rate 16 Blood Pressure 118/62 Pulse Oximetry 100 Oxygen Delivery Room Air 12/04/22 00:00 12/04/22 02:00 12/04/22 04:00 Temperature 36.3 C L Pulse Rate 68 79 89 Respiratory Rate 16 Blood Pressure 128/69 Pulse Oximetry 97 Oxygen Delivery 12/04/22 04:00 12/04/22 06:00 12/04/22 04:00 Temperature Pulse Rate 84 90 Respiratory Rate Blood Pressure Pulse Oximetry Oxygen Delivery Room Air 12/04/22 08:09 12/04/22 08:00 12/04/22 08:00 Temperature 35.8 C L Pulse Rate 95 86 91 Respiratory Rate 16 20 Blood Pressure 114/66 Pulse Oximetry 100 Oxygen Delivery 12/04/22 10:00 12/04/22 08:00 Temperature Pulse Rate 89 Respiratory Rate Blood Pressure Pulse Oximetry Oxygen Delivery Room Air Intake/Output Intake/Output: Intake & Output 12/01/22 12/02/22 12/03/22 12/04/22 23:59 23:59 23:59 23:59 Intake Total 1170 320 Output Total 250 1275 Balance 920 -955 Meds/Results Medications: Active Medications Generic Name Dose Route Start Last Admin Trade Name Freq PRN Reason Stop Dose Admin Acetaminophen 650 mg 12/03/22 10:46 Acetaminophen 325 Mg Tablet PO Q6H PRN Pain (Scale Score 1-3) Hydrocodone Bitart/Acetaminophen 1 tab 12/03/22 13:00 12/04/22 09:12 Hydrocodone/Acetaminophen (*Crx) 5-325 Mg Tablet PO Not Given QID SHAGGY Albuterol 2 puff 12/03/22 10:46 Albuterol Sulfate (*Sp) Aerosol 1 Puff INHALATION QID PRN Shortness Of Breath Or Wheezing Allopurinol 300 mg 12/03/22 13:00 12/04/22 09:01 Allopurinol 300 Mg Tablet PO 300 mg DAILY SHAGGY Administration Aspirin 81 mg 12/04/22 08:00 12/04/22 09:03 Aspirin 81 Mg Chewable Tablet PO 81 mg DAILY@0800 SHAGGY Administration Atorvastatin Calcium 80 mg 12/03/22 21:00 12/03/22 20:18 Atorvastatin 40 Mg Tablet PO 80 mg HS SHAGGY Administration Cyanocobalamin 1,000 mcg 12/04/22 09:00 12/04/22 09:01 Cyanocobalamin 1,000 Mcg Tablet PO 1,000 mcg DAILY SHAGGY Administration Dextrose 12.5 gm 12/03/22 17:38 Dextrose 50% 25 Gm/50 Ml Syringe IV PUSH PRN PRN Hypoglycemia Protocol Docusate Sodium 200 mg 12/03/22 13:00 12/04/22 08:59 Docusate Sodium 100 Mg Capsule PO Not Given DAILY SHAGGY Duloxetine HCl 60 mg
[2022-12-04 11:58] LABS: Glucose Point of Care 230 mg/dl (65-105)
[2022-12-04] MEDS: INSULIN ASPART (*BKC) 100 UNITS/ML SUB-Q (12:20)
--- NOTE | 2022-12-04 14:57 | PM.IMPN ---
Progress Note: A&P Assessment and Plan (1) Acute non-ST elevation myocardial infarction (NSTEMI): Code(s): I21.4 - Non-ST elevation (NSTEMI) myocardial infarction Status: Acute (2) Acute kidney injury: Code(s): N17.9 - Acute kidney failure, unspecified Status: Acute (3) Altered mental status: Code(s): R41.82 - Altered mental status, unspecified Status: Acute (4) Hypotension: Code(s): I95.9 - Hypotension, unspecified Status: Acute (5) Pneumonia: Qualifiers: Laterality: right Lung location: unspecified part of lung Pneumonia type: due to unspecified organism Qualified Code(s): J18.9 - Pneumonia, unspecified organism Code(s): J18.9 - Pneumonia, unspecified organism Status: Acute (6) Anemia: Code(s): D64.9 - Anemia, unspecified Status: Acute (7) CAD (coronary artery disease): Code(s): I25.10 - Atherosclerotic heart disease of [place] coronary artery without angina pectoris Status: Acute (8) Hyperlipidemia: Code(s): E78.5 - Hyperlipidemia, unspecified Status: Acute (9) HTN (hypertension), malignant: Code(s): I10 - Essential (primary) hypertension Status: Acute (10) Gout: Code(s): M10.9 - Gout, unspecified Status: Acute Plan sepsis with Altered mental status, fever underlying pneumonia per chest x-ray. Panculture procalcitonin 1.4 on ceftriaxone azithromycin Right lower lobe pneumonia Hypotension likely related to sepsis hold blood pressure medication blood pressure has improved where restarted beta-jessi Non ST-elevation ID initial troponin is 6.5 to 8. On Lovenox. Aspirin to continue. Cardiology consulted from the ER medical management clopidogrel load as suggested by fuse spooler. Restart beta-jessi. Continue atorvastatin 80 mg q.h.s. Type 2 diabetes on insulin Accu-Cheks and continue insulin regimen History of gout on allopurinol continue JOSÉ creatinine 1.4 baseline 1 point 1 gentle IV hydration Cardiomyopathy ejection fraction of 30-35%. Monitor for volume overload. Anemia chronic Coronary artery disease status post CABG Hypertension Hyperlipidemia Advanced dementia BPH DVT prophylaxis on Lovenox Code status: Do not resuscitate Subjective Date/time seen: 12/04/22 14:57 Interval history: No overnight events. Feels well. Denies any cough. No chest pain or shortness of breath. Remains afebrile. Review of Systems Review of Systems: All systems reviewed & are unremarkable except as noted in HPI and below Exam Narrative: GENERAL: Well-appearing, well-nourished, and in no acute distress.? HEAD: Normocephalic, atraumatic. EYES: PERRLA and EOMI. ENT: Nares clear, no rhinorrhea or epistaxis.? Mucous membranes moist. NECK: Supple. CHEST: Clear to auscultation.? No respiratory distress. HEART: Regular rate and rhythm.? No murmur heard.? Normal peripheral pulses. ABDOMEN: Soft, nontender, nondistended, normal active bowel sounds. EXTREMITIES: Normal range of motion.? No edema. SKIN: Warm, dry, no rash. NEURO: No focal deficits.? Alert and oriented x3. PSYCH: Normal mood and affect. Objective Data Vital Signs Vital Signs: Vital Signs - 24 hr 12/03/22 16:41 12/03/22 16:00 12/03/22 16:00 Temperature 97.8 F Pulse Rate 68 73 Respiratory Rate 16 Blood Pressure 114/58 L Pulse Oximetry 98 99 Oxygen Delivery Room Air 12/03/22 18:00 12/03/22 16:00 12/03/22 20:00 Temperature 97.9 F Pulse Rate 78 68 Respiratory Rate 16 Blood Pressure 112/66 Pulse Oximetry 100 Oxygen Delivery Room Air 12/03/22 20:00 12/03/22 20:00 12/03/22 22:00 Temperature Pulse Rate 75 71 Respiratory Rate Blood Pressure Pulse Oximetry Oxygen Delivery Room Air 12/04/22 00:00 12/04/22 00:00 12/04/22 00:00 Temperature 97.6 F Pulse Rate 71 68 Respiratory Rate 16 Blood Pressure 118/62 Pulse Oximetry 100 Oxygen Delivery R
[2022-12-04 16:49] LABS: Glucose Point of Care 124 mg/dl (65-105)
[2022-12-04] MEDS: CLOPIDOGREL BISULFATE 300 MG TABLET PO (16:54)
[2022-12-04 20:37] LABS: Glucose Point of Care 146 mg/dl (65-105)
[2022-12-04] MEDS: ATORVASTATIN 40 MG TABLET 80 MG PO (20:57)
[2022-12-04] MEDS: TAMSULOSIN HCL 0.4 MG CAPSULE PO (20:57)
[2022-12-04] MEDS: MELATONIN 5 MG TABLET 20 MG PO (20:58)
[2022-12-05] VITALS (17 sets, daily range): BP systolic 97–130; BP diastolic 59–68; PULSE 62–104; RESP 16–18; TEMP 36.1–36.7; O2SAT 94–100
[2022-12-05 04:58] LABS: Basophils Percent Auto 0.2 % (0.2-1.2); Eosinophils Absolute Auto 0.2 K/mm3 (0-0.3); Eosinophils Percent Auto 3.6 % (0-4.4); Hematocrit 27.3 % (42.0-52.0); Hemoglobin 8.6 g/dL (14.0-18.0); Immature Granulocyte Absolute 0.02 K/mm3 (0.00-0.031); Immature Granulocyte Percent A 0.4 % (0-0.5); Lymphocytes Absolute Auto 1.37 K/mm3 (0.9-3.2); Lymphocytes Percent Auto 27.2 % (18.3-44.2); Mean Corpuscular HGB Conc 31.5 g/dl (32-36); Mean Corpuscular Hemoglobin 32.8 pg (26-34); Mean Corpuscular Volume 104.2 fl (80-100); Mean Platelet Volume 10.3 fl (7.4-10.4); Monocytes Absolute Auto 0.3 K/mm3 (0.1-0.6); Monocytes Percent Auto 5.4 % (2.6-8.5); Neutrophils Absolute Auto 3.2 K/mm3 (1.3-6.7); Neutrophils Percent Auto 63.2 % (45.5-73.1); Platelet Count Result 173 k/mm3 (150-375); Red Blood Count 2.62 M/mm3 (4.6-6.20); Red Cell Distribution Width 15.4 % (11.5-14.5)
[2022-12-05 05:06] LABS: Alanine Aminotransferase 15 U/L (6-50); Albumin Level 2.7 g/dL (3.5-5.1); Alkaline Phosphatase 71 U/L (38-126); Anion Gap 5 mmol/L (8-16); Aspartate Amino Transferase 27 U/L (17-59); Bilirubin,Total 0.5 mg/dL (0.2-1.3); Blood Urea Nitrogen 14 mg/dL (9-20); Calcium 8.2 mg/dL (8.4-10.2); Carbon Dioxide 24 mmol/L (22-30); Chloride 110 mmol/L (98-107); Estimated CRCL calculation 48 ml/min; Estimated Glomerular Filt Rate > 60; Glucose 120 mg/dL (65-110); Magnesium 1.8 mg/dL (1.6-2.3); Potassium 3.7 mmol/L (3.4-5.0); Sodium 139 mmol/L (137-145)
[2022-12-05 08:16] LABS: Glucose Point of Care 121 mg/dl (65-105)
[2022-12-05] MEDS: FLUTICASONE/SALMETEROL 230-21 MCG INHALER 1 PUFF 2 PUFF INHALATION ×2 (09:23→20:00)
[2022-12-05] MEDS: UMECLIDINIUM BROMIDE 62.5 MCG ELLIPTA 1 PUFF INHALATION (09:24)
[2022-12-05] MEDS: ENOXAPARIN 80 MG/0.8 ML SYRINGE 70 MG SUB-Q ×2 (09:34→20:28)
[2022-12-05] MEDS: MAGNESIUM OXIDE 400 MG TABLET PO (09:34)
[2022-12-05] MEDS: CLOPIDOGREL BISULFATE 75 MG TABLET PO (09:34)
[2022-12-05] MEDS: ASPIRIN 81 MG CHEWABLE TABLET PO (09:35)
[2022-12-05] MEDS: DOCUSATE SODIUM 100 MG CAPSULE 200 MG PO (09:35)
[2022-12-05] MEDS: METOPROLOL SUCCINATE EXT REL 50 MG TABCR PO (09:35)
[2022-12-05] MEDS: GABAPENTIN 300 MG CAPSULE PO ×2 (09:36→17:19)
[2022-12-05] MEDS: allopurinoL 300 MG TABLET PO (09:36)
[2022-12-05] MEDS: CHOLECALCIFEROL 1,000 UNITS TABLET 2000 UNITS PO (09:36)
[2022-12-05] MEDS: CYANOCOBALAMIN 1,000 MCG TABLET 1000 MCG PO (09:36)
[2022-12-05] MEDS: DULoxetine HCL 60 MG CAPSULE.DR PO (09:36)
[2022-12-05] MEDS: PANTOPRAZOLE 40 MG TABLET PO ×2 (09:36→17:20)
[2022-12-05] MEDS: LIDOCAINE 5% PATCH 1 PATCH TRANSDERM (09:43)
[2022-12-05] MEDS: polyethylene glycoL 3350 17 GM POWD.PACK PO (09:43)
--- NOTE | 2022-12-05 10:48 | PM.PNCARD ---
Progress Note: A&P Assessment and Plan (1) CAD (coronary artery disease): Code(s): I25.10 - Atherosclerotic heart disease of [place] coronary artery without angina pectoris Status: Acute (2) Acute non-ST elevation myocardial infarction (NSTEMI): Code(s): I21.4 - Non-ST elevation (NSTEMI) myocardial infarction Status: Acute Plan This is an elderly gentleman with longstanding coronary disease with remote history of surgical and subsequent percutaneous revascularization. We have no records of any of this as none of this care has been delivered by us here at [facility] or by any of my partners. Patient came into the hospital with significant fever has Gram-positive cocci in the blood and for some reason troponin levels were done which are significantly elevated but there is no other clinical evidence of ACS. In this setting the patient needs treatment of his Gram-positive sepsis and does not need a follow-up heart catheterization. If he does have to have any further invasive procedure it is his firm opinion that he wants it done by his established scout professional sports at [facility]. The patient is also requesting transfer to that hospital for since he received most of his healthcare over there in terms of his fever/bacteremia. At this point I will sign off of his case here at [facility] since we there is no anticipation or plans of bringing him to the phlebotomy lab assistant here in the setting of asymptomatic troponinemia. Hospitalist will presumably discuss with him his request for transfer to [facility] when they make rounds today. Stewart Coughlin MD [facility] Subjective Date/time seen: Date of service: 12/05/22 10:48 Interval history: Follow-up visit in this 77-year-old man with: Significant troponin elevation with admission to the hospital with fever now been found to have blood cultures positive for Gram-positive cocci. Patient was seen by my colleague over the weekend and concept of follow-up catheterization was discussed and recommended. Patient has no chest pain or ECG evidence of ACS. He has a longstanding history of coronary disease with CABG 20 years ago in [place] and a number of percutaneous interventional procedure since then that have all been done downtown at [facility]. He says he actively follows with a scout professional sports at that hospital. Feels well this morning offers no other complaints. Receiving intravenous antibiotics Exam Const: General: comfortable and no acute distress Other: Pleasant elderly man in no distress HENMT: Mouth: Yes moist mucous membranes Eyes: Sclera: sclerae normal Neck: Neck: supple and no JVD Other: Carotid pulses are intact bilaterally and demonstrate no bruits Resp: Effort & Inspection: normal respiratory effort Auscultation: clear to auscultation bilaterally Cardio: Rate: regular rate Rhythm: regular rhythm GI: GI Palp: Yes Soft to palpation Auscultation: normal bowel sounds Skin: General skin exam: normal color Neuro: Other: Alert and oriented x3, normal cognition Objective Data Vital Signs Vital Signs: Vital Signs - 24 hr 12/04/22 12:00 12/04/22 12:00 12/04/22 12:00 Temperature 35.5 C L Pulse Rate 51 L 90 Respiratory Rate 20 Blood Pressure 152/70 H Pulse Oximetry 98 Oxygen Delivery Room Air 12/04/22 14:00 12/04/22 16:00 12/04/22 16:00 Temperature 36.6 C Pulse Rate 82 93 Respiratory Rate 16 Blood Pressure 149/86 H Pulse Oximetry 100 Oxygen Delivery Room Air 12/04/22 16:00 12/04/22 18:00 12/04/22 20:00 Temperature 36.7 C Pulse Rate 86 91 89 Respiratory Rate 20 Blood Pressure 106/75 Pulse Oximetry 98 Oxygen Delivery 12/04/22 20:00 12/04/22 20:00 12/04/22 21:41 Temperature Pulse Rate 86 75 Respiratory Rate 16 Blood Pressure Pulse Oximetry Oxygen Delivery Room Air 12/04/22 22:00 12/04/22 23:06 12/04/22 23:15 Temperature 36.5 C Pulse Rate 93 85 Respirator
[2022-12-05 12:03] LABS: Glucose Point of Care 169 mg/dl (65-105)
--- NOTE | 2022-12-05 15:58 | PM.IMPN ---
Progress Note: A&P Assessment and Plan (1) Acute non-ST elevation myocardial infarction (NSTEMI): Code(s): I21.4 - Non-ST elevation (NSTEMI) myocardial infarction Status: Acute (2) Acute kidney injury: Code(s): N17.9 - Acute kidney failure, unspecified Status: Acute (3) Altered mental status: Code(s): R41.82 - Altered mental status, unspecified Status: Acute (4) Hypotension: Code(s): I95.9 - Hypotension, unspecified Status: Acute (5) Pneumonia: Qualifiers: Laterality: right Lung location: unspecified part of lung Pneumonia type: due to unspecified organism Qualified Code(s): J18.9 - Pneumonia, unspecified organism Code(s): J18.9 - Pneumonia, unspecified organism Status: Acute (6) Anemia: Code(s): D64.9 - Anemia, unspecified Status: Acute (7) CAD (coronary artery disease): Code(s): I25.10 - Atherosclerotic heart disease of [place] coronary artery without angina pectoris Status: Acute (8) Hyperlipidemia: Code(s): E78.5 - Hyperlipidemia, unspecified Status: Acute (9) HTN (hypertension), malignant: Code(s): I10 - Essential (primary) hypertension Status: Acute (10) Gout: Code(s): M10.9 - Gout, unspecified Status: Acute Plan sepsis with Altered mental status, fever underlying pneumonia per chest x-ray. Panculture procalcitonin 1.4 on ceftriaxone azithromycin Right lower lobe pneumonia with switch antibiotics to oral Bacteremia Gram-positive cocci in clusters 08/03. Came back as Staph hominis. Likely a contamination. Hypotension likely related to sepsis hold blood pressure medication blood pressure has improved where restarted beta-jessi Non ST-elevation [place] initial troponin is 6.5 to 8. On Lovenox. Aspirin to continue. Cardiology consulted from the ER medical management clopidogrel load as suggested by marine cargo surveyor. Restart beta-jessi. Continue atorvastatin 80 mg q.h.s. cardiac catheterization as previously planned has been deferred Type 2 diabetes on insulin Accu-Cheks and continue insulin regimen History of gout on allopurinol continue JOSÉ creatinine 1.4 baseline 1 point 1 gentle IV hydration Cardiomyopathy ejection fraction of 30-35%. Monitor for volume overload. Anemia chronic Coronary artery disease status post CABG Hypertension Hyperlipidemia Advanced dementia BPH DVT prophylaxis on Lovenox Code status: Do not resuscitate Subjective Date/time seen: 12/05/22 15:58 Interval history: No overnight events. Denies any chest pain or shortness of breath. No her to get checked out from his regular marine cargo surveyor at [place]. Cardiac catheterization has been deferred by the marine cargo surveyor here. Review of Systems Review of Systems: All systems reviewed & are unremarkable except as noted in HPI and below Exam Narrative: GENERAL: Well-appearing, well-nourished, and in no acute distress.? HEAD: Normocephalic, atraumatic. EYES: PERRLA and EOMI. ENT: Nares clear, no rhinorrhea or epistaxis.? Mucous membranes moist. NECK: Supple. CHEST: Clear to auscultation.? No respiratory distress. HEART: Regular rate and rhythm.? No murmur heard.? Normal peripheral pulses. ABDOMEN: Soft, nontender, nondistended, normal active bowel sounds. EXTREMITIES: Normal range of motion.? No edema. SKIN: Warm, dry, no rash. NEURO: No focal deficits.? Alert and oriented x3. PSYCH: Normal mood and affect. Objective Data Vital Signs Vital Signs: Vital Signs - 24 hr 12/04/22 16:00 12/04/22 16:00 12/04/22 16:00 Temperature 97.8 F Pulse Rate 93 86 Respiratory Rate 16 Blood Pressure 149/86 H Pulse Oximetry 100 Oxygen Delivery Room Air 12/04/22 18:00 12/04/22 20:00 12/04/22 20:00 Temperature 98.0 F Pulse Rate 91 89 Respiratory Rate 20 Blood Pressure 106/75 Pulse Oximetry 98 Oxygen Delivery Room Air 12/04/22 20:00 12/04/22 21:41 12/04/22 22:00 Alyse
[2022-12-05 16:16] LABS: Glucose Point of Care 139 mg/dl (65-105)
[2022-12-05] MEDS: ATORVASTATIN 40 MG TABLET 80 MG PO (20:28)
[2022-12-05] MEDS: MELATONIN 5 MG TABLET 20 MG PO (20:28)
[2022-12-05] MEDS: TAMSULOSIN HCL 0.4 MG CAPSULE PO (20:28)
[2022-12-05 20:29] LABS: Glucose Point of Care 163 mg/dl (65-105)
[2022-12-06] VITALS (8 sets, daily range): BP systolic 107–127; BP diastolic 70–74; PULSE 57–67; RESP 14–16; TEMP 36.3–36.5; O2SAT 98–100
[2022-12-06 04:57] LABS: Basophils Percent Auto 0.6 % (0.2-1.2); Eosinophils Absolute Auto 0.2 K/mm3 (0-0.3); Eosinophils Percent Auto 4.2 % (0-4.4); Hematocrit 28.3 % (42.0-52.0); Hemoglobin 8.8 g/dL (14.0-18.0); Immature Granulocyte Absolute 0.01 K/mm3 (0.00-0.031); Immature Granulocyte Percent A 0.2 % (0-0.5); Lymphocytes Absolute Auto 1.79 K/mm3 (0.9-3.2); Lymphocytes Percent Auto 36.2 % (18.3-44.2); Mean Corpuscular HGB Conc 31.1 g/dl (32-36); Mean Corpuscular Hemoglobin 32.6 pg (26-34); Mean Corpuscular Volume 104.8 fl (80-100); Mean Platelet Volume 10.4 fl (7.4-10.4); Monocytes Absolute Auto 0.4 K/mm3 (0.1-0.6); Monocytes Percent Auto 7.5 % (2.6-8.5); Neutrophils Absolute Auto 2.5 K/mm3 (1.3-6.7); Neutrophils Percent Auto 51.3 % (45.5-73.1); Platelet Count Result 190 k/mm3 (150-375); Red Cell Distribution Width 15.4 % (11.5-14.5)
[2022-12-06 05:13] LABS: Alanine Aminotransferase 16 U/L (6-50); Albumin Level 2.9 g/dL (3.5-5.1); Alkaline Phosphatase 72 U/L (38-126); Anion Gap 6 mmol/L (8-16); Aspartate Amino Transferase 24 U/L (17-59); Bilirubin,Total 0.4 mg/dL (0.2-1.3); Blood Urea Nitrogen 10 mg/dL (9-20); Calcium 8.5 mg/dL (8.4-10.2); Carbon Dioxide 26 mmol/L (22-30); Chloride 109 mmol/L (98-107); Estimated CRCL calculation 57 ml/min; Estimated Glomerular Filt Rate > 60; Glucose 123 mg/dL (65-110); Magnesium 1.6 mg/dL (1.6-2.3); Sodium 141 mmol/L (137-145)
[2022-12-06 07:52] LABS: Glucose Point of Care 153 mg/dl (65-105)
[2022-12-06] MEDS: UMECLIDINIUM BROMIDE 62.5 MCG ELLIPTA 1 PUFF INHALATION (08:08)
[2022-12-06] MEDS: FLUTICASONE/SALMETEROL 230-21 MCG INHALER 1 PUFF 2 PUFF INHALATION (08:08)
[2022-12-06] MEDS: polyethylene glycoL 3350 17 GM POWD.PACK PO (08:38)
[2022-12-06] MEDS: LIDOCAINE 5% PATCH 1 PATCH TRANSDERM (08:40)
[2022-12-06] MEDS: CLOPIDOGREL BISULFATE 75 MG TABLET PO (08:42)
[2022-12-06] MEDS: DOCUSATE SODIUM 100 MG CAPSULE 200 MG PO (08:43)
[2022-12-06] MEDS: CHOLECALCIFEROL 1,000 UNITS TABLET 2000 UNITS PO (08:43)
[2022-12-06] MEDS: CEFDINIR 300 MG CAPSULE PO (08:43)
[2022-12-06] MEDS: ASPIRIN 81 MG CHEWABLE TABLET PO (08:43)
[2022-12-06] MEDS: AZITHROMYCIN 250 MG TABLET 500 MG PO (08:44)
[2022-12-06] MEDS: allopurinoL 300 MG TABLET PO (08:44)
[2022-12-06] MEDS: DULoxetine HCL 60 MG CAPSULE.DR PO (08:44)
[2022-12-06] MEDS: CYANOCOBALAMIN 1,000 MCG TABLET 1000 MCG PO (08:44)
[2022-12-06] MEDS: ENOXAPARIN 80 MG/0.8 ML SYRINGE 70 MG SUB-Q (08:45)
[2022-12-06] MEDS: GABAPENTIN 300 MG CAPSULE PO (08:45)
[2022-12-06] MEDS: PANTOPRAZOLE 40 MG TABLET PO (08:46)
[2022-12-06] MEDS: METOPROLOL SUCCINATE EXT REL 50 MG TABCR PO (08:46)
[2022-12-06] MEDS: MAGNESIUM OXIDE 400 MG TABLET PO (08:46)
[2022-12-06 12:15] LABS: Glucose Point of Care 186 mg/dl (65-105)
--- NOTE | 2022-12-06 12:54 | PM.DS ---
DS: Admitting Diagnosis Discharge Date 12/06/2022 Admitting Diagnosis Altered mental status with fever DS: Discharge Diagnosis Discharge Diagnosis (1) Acute non-ST elevation myocardial infarction (NSTEMI): Code(s): I21.4 - Non-ST elevation (NSTEMI) myocardial infarction Status: Acute (2) Acute kidney injury: Code(s): N17.9 - Acute kidney failure, unspecified Status: Acute (3) Altered mental status: Code(s): R41.82 - Altered mental status, unspecified Status: Acute (4) Hypotension: Code(s): I95.9 - Hypotension, unspecified Status: Acute (5) Pneumonia: Qualifiers: Laterality: right Lung location: unspecified part of lung Pneumonia type: due to unspecified organism Qualified Code(s): J18.9 - Pneumonia, unspecified organism Code(s): J18.9 - Pneumonia, unspecified organism Status: Acute (6) Anemia: Code(s): D64.9 - Anemia, unspecified Status: Acute (7) CAD (coronary artery disease): Code(s): I25.10 - Atherosclerotic heart disease of [place] coronary artery without angina pectoris Status: Acute (8) Hyperlipidemia: Code(s): E78.5 - Hyperlipidemia, unspecified Status: Acute (9) HTN (hypertension), malignant: Code(s): I10 - Essential (primary) hypertension Status: Acute (10) Gout: Code(s): M10.9 - Gout, unspecified Status: Acute DS: Summary Hospital Course Hospital Course: # ?sepsis with Altered mental status, fever underlying pneumonia per chest x-ray.? Panculture procalcitonin 1.4 on ceftriaxone azithromycin. Switched to cefdinir at discharge to complete the course # right lower lobe pneumonia with switch antibiotics to oral # bacteremia Gram-positive cocci in clusters 08/03.? Came back as Staph hominis.? Likely a contamination. # hypotension likely related to sepsis hold blood pressure medication blood pressure has improved where restarted beta-jessi will restart losartan hold isosorbide at discharge # non ST-elevation PA initial troponin is 6.5 to 8.? On Lovenox.? Aspirin to continue.? Cardiology consulted from the ER medical management clopidogrel load as suggested by flavor maker.? Restart beta-jessi.? Continue atorvastatin 80 mg q.h.s. cardiac catheterization as previously planned has been deferred as his troponinemia is likely to be related to his underlying sepsis. He will follow-up with his regular flavor maker for could continued evaluation should he develop any new symptoms # type 2 diabetes on insulin Accu-Cheks and continue insulin regimen # history of gout on allopurinol continue # [place] creatinine 1.4 baseline 1 point 1 gentle IV hydration # cardiomyopathy ejection fraction of? 30-35%.? Monitor for volume overload. On ARB and beta-jessi # anemia chronic # coronary artery disease status post CABG # hypertension # hyperlipidemia # advanced dementia # bPH # dVT prophylaxis on Lovenox # code status: Do not resuscitate Time Spent with Patient Time attestation: Total time spent providing and/or coordinating discharge services: 40 minutes Exam Narrative: GENERAL: Well-appearing, well-nourished, and in no acute distress.? HEAD: Normocephalic, atraumatic. EYES: PERRLA and EOMI. ENT: Nares clear, no rhinorrhea or epistaxis.? Mucous membranes moist. NECK: Supple. CHEST: Clear to auscultation.? No respiratory distress. HEART: Regular rate and rhythm.? No murmur heard.? Normal peripheral pulses. ABDOMEN: Soft, nontender, nondistended, normal active bowel sounds. EXTREMITIES: Normal range of motion.? No edema. SKIN: Warm, dry, no rash. NEURO: No focal deficits.? Alert and oriented x3. PSYCH: Normal mood and affect. DS: Data Data Completed and Pending Labs on day of discharge: Labs from last 24 hours 12/06/22 12/06/22 12/06/22 11:49 07:32 04:25 WBC 5.0 RBC 2.70 L Hgb 8.8 L Hct 28.3 L MCV 104.8 H MCH 32.6 MCHC 31.1 L RDW 15.4 H Plt Count
--- NOTE | 2022-12-06 13:31 | PC.NURSE ---
Report given to Rosemary Josue at [facility].
--- NOTE | 2022-12-06 13:40 | PC.NURSE ---
Spouse, Florecita updated on pending discharge.
[2022-12-08 07:24] LABS: Legionella pneumophila Ag Ur Not Detected (Not Detected)
[2022-12-08 19:43] LABS: Mycoplasma IgM Antibody Titer 69 U/mL (<770)
[2022-12-08 21:22] LABS: Pneumococcal Antigen Urine Not Detected (Not Detected)
== END 2022-12-06 15:05 | DRG 871 ==
LOC: ANHED 05:34 → ANHIMU 07:57
PROVIDERS: Admitting Provider Internal Medicine; Emergency Provider Emergency Medicine; Visit Provider Internal Medicine
DX: A41.9 Sepsis, unspecified organism (principal); I21.A1 Myocardial infarction type 2; J18.9 Pneumonia, unspecified organism; N17.9 Acute kidney failure, unspecified; I42.9 Cardiomyopathy, unspecified; I25.10 Atherosclerotic heart disease of native coronary artery without angina pectoris; I10 Essential (primary) hypertension; I95.9 Hypotension, unspecified; D64.9 Anemia, unspecified; E11.9 Type 2 diabetes mellitus without complications; E78.5 Hyperlipidemia, unspecified; N40.0 Benign prostatic hyperplasia without lower urinary tract symptoms; M10.9 Gout, unspecified; Z20.822 Contact with and (suspected) exposure to COVID-19; Z95.1 Presence of aortocoronary bypass graft; Z85.46 Personal history of malignant neoplasm of prostate; Z79.82 Long term (current) use of aspirin; Z79.4 Long term (current) use of insulin
CPT/HCPCS: 36415; 71045; 80053; 81003; 82948; 83605; 83690; 83735; 84145; 84484; 85025; 86738; 87040; 87147; 87181; 87186; 87449; 87637; 87899; 93005; 94640; 96360; 99285; A9270; J0456; J0696; J1650; J1815; J3475; J7030; J7040

== ENCOUNTER 2023-01-14 23:07 | Inpatient (IN) | payer MEDICARE, MEDICAID, SELFPAY ==
--- NOTE | ~2023-01-14 | XR_ITS ---
XR chest 1V portable DATE: 01/14/2023 23:35 INDICATION: Chest pain. Right pleural effusion. TECHNIQUE: Portable AP chest on at 2331 hours COMPARISON: 12/03/2022 portable AP chest at 0446 hours FINDINGS: Status post sternotomy and coronary artery bypass graft surgery. A stent device overlies th e right inferomedial cardiac silhouette. Aortic arch calcification and mild unfolding. There is mild pulmonary vascular congestion and redistribution. There is prominence of the minor fiss ure consistent with subpleural edema. Mary Kate B-lines are noted, consistent with pulmonary interstitia l edema. There is patchy infiltrate in the right mid and both lower lung zones and mild right pleural effusion. Osteopenia. Old lateral left seventh rib healed fracture. Dextroscoliosis and degenerative spurring o f the thoracic spine. IMPRESSION: Congestive heart failure, mild increased right pleural effusion since 12/03/2022 Right mid and bilateral lower lung infiltrates and/or atelectasis are again noted, which may be due t o pulmonary edema, pneumonia and/or aspiration pneumonitis Reviewed, dictated and finalized at location A. IMPRESSION: Congestive heart failure, mild increased right pleural effusion sin ce 12/03/2022 Right mid and bilateral lower lung infiltrates and/or atelectasis are again not ed, which may be due to pulmonary edema, pneumonia and/or aspiration pneumoniti s
--- NOTE | ~2023-01-14 | XR_ITS ---
XR chest 1V portable DATE: 01/23/2023 12:40 INDICATION: Transient alteration of awareness TECHNIQUE: Portable AP chest on 01/23/2023 at 1236 hours COMPARISON: 01/17/2023 portable AP chest FINDINGS: Status post sternotomy and coronary artery bypass graft surgery. Right coronary artery sten t. There is cardiomegaly. There is pulmonary vascular congestion and redistribution. Lateral curve the B -lines are noted consistent with pulmonary interstitial edema. There is prominence of the minor fissu re consistent with subpleural edema. Mild bilateral perihilar and lower lung infiltrates, likely due to pulmonary edema. Small right pleural effusion. IMPRESSION: Congestive heart failure, pulmonary edema, small right pleural effusion. Increased pulmon reji edema since 01/17/2023 Reviewed, dictated and finalized at location A. IMPRESSION: Congestive heart failure, pulmonary edema, small right pleural effu frederic. Increased pulmonary edema since 01/17/2023
--- NOTE | ~2023-01-14 | XR_ITS ---
XR chest 1V portable DATE: 01/15/2023 09:21 INDICATION: Right pleural effusion TECHNIQUE: Portable upright AP chest on 01/15/2023 at 0917 hours COMPARISON: 01/14/2023 CTA chest 01/14/2023 portable AP chest FINDINGS: Status post sternotomy and coronary bypass graft surgery. Cardiomegaly. There is pulmonary vascular congestion. There are infiltrates involving particularly the mid and lowe r lung zones which may be due to pulmonary edema; pneumonia or aspiration are not excluded. Mild right pleural effusion. IMPRESSION: Little interval change since 01/14/2023 Reviewed, dictated and finalized at location A.
--- NOTE | ~2023-01-14 | CT_ITS ---
EXAMINATION: CT brain wo con DATE: 01/15/2023 15:56 INDICATION: New altered mental status TECHNIQUE: Computed tomography (CT) of the head was performed without intravenous contrast. The dose- length product was 681.00 mGy-cm. Automated exposure control and iterative reconstruction technique w ere employed. COMPARISON: CT dated 11/12/2022 FINDINGS: Generalized atrophy. There are scattered mild periventricular and subcortical white matter changes, most likely related to small vessel ischemic disease (microangiopathy). 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 Basilar cisterns are patent. There is intracranial atherosclerosi s. No acute intracranial hemorrhage, infarction, mass or mass effect. Paranasal sinuses and mastoids are pneumatized. IMPRESSION: 1. No acute intracranial abnormality. 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 3: Chronic age-related findings. Reviewed, dictated and finalized at location A.
--- NOTE | ~2023-01-14 | CT_ITS ---
EXAMINATION: CTA chest abdomen pelvis DATE: 01/15/2023 00:00 INDICATION: Crushing chest pain. History of abdominal aortic aneurysm. TECHNIQUE: Computed tomography angiography (CTA) of the chest, abdomen and pelvis was performed with 100 mL Omnipaque-350 intravenous contrast timed to evaluate the pulmonary arteries. Coronal maximum i ntensity projection 3D-reconstructions were created by the technologist. Automated exposure control a nd iterative reconstruction technique were employed. Exam dose: 1006.34 mGy-cm total exam DLP. COMPARISON: 01/14/2023 portable AP chest FINDINGS: Status post sternotomy. There is extensive atherosclerotic calcification of the coronary ar teries. There is atherosclerotic calcification of the thoracic aorta and great vessels. No thoracic a ortic aneurysm or dissection is detected. Cardiomegaly. No pericardial effusion. Moderately large bilateral pleural effusions with bilateral dependent lower lobe mild compressive ate lectasis. Mild patchy bilateral pulmonary infiltrates involving right upper lobe, dependent left uppe r lobe, dependent middle lobe Mild mediastinal lymph node prominence, possibly reactive. There is hepatic steatosis with relative sparing near the gallbladder. No hepatic, splenic, pancreati c, and adrenal or renal space-occupying mass lesion or urinary tract calculus or hydroureteronephrosi s is detected. 5.2 x 3.8 cm distal abdominal aortic aneurysm extending into the proximal right common iliac artery. No evidence of aortic rupture. There is atherosclerotic calcification of celiac and superior mesenter ic, renal and inferior mesenteric arteries in addition to the iliac and femoral arteries. No intraperitoneal or retroperitoneal or pelvic mass lesion or adenopathy or ascites is detected. There is a prominent of fecal material in the rectum and sigmoid colon in particular. No bowel obstru ction or intraperitoneal free air is detected. Surgical clips, right lower quadrant, probably due to appendectomy. Moderate diffuse thickening of the urinary bladder wall. No suspicious osteolytic or osteoblastic lesions are noted. IMPRESSION: Status post sternotomy Cardiomegaly Thoracic and abdominal aortic atherosclerosis with approximately 5.2 x 3.8 cm distal abdominal aortic aneurysm, extending into the proximal right common iliac arteries; no rupture detected Moderately large bilateral pleural effusions with associated mild bilateral dependent lower lobe comp ressive atelectasis, mild patchy bilateral pulmonary infiltrates Reviewed, dictated and finalized at [facility]. Reviewed, dictated and finalized at location A. IMPRESSION: Status post sternotomy Cardiomegaly Thoracic and abdominal aortic atherosclerosis with approximately 5.2 x 3.8 cm d istal abdominal aortic aneurysm, extending into the proximal right common iliac arteries; no rupture detected Moderately large bilateral pleural effusions with associated mild bilateral dep endent lower lobe compressive atelectasis, mild patchy bilateral pulmonary infi ltrates
--- NOTE | ~2023-01-14 | XR_ITS ---
Portable chest x-ray Comparison: 01/15/2023 Clinical History: Pneumonia Findings: Probable small bilateral pleural effusions, right greater than left. There is hazy bibasil ar airspace disease, most compatible pulmonary edema. Cardiomediastinal silhouette is stable. Bones and soft tissues are unremarkable. Impression: Bibasilar pulmonary edema with small bilateral pleural effusions. Correlate clinically for pneumonia. Reviewed, dictated and finalized at location . Impression: Bibasilar pulmonary edema with small bilateral pleural effusions. Correlate cli nically for pneumonia.
--- NOTE | ~2023-01-14 | XR_ITS ---
Portable chest x-ray Comparison: 01/16/2023 Clinical History: CHF Findings: There is mild haziness at the lung bases, right worse than left. Possible minimal right pl eural effusion. Cardiomediastinal silhouette is stable. Bones and soft tissues are unremarkable. Impression: Probable minimal bibasilar pulmonary edema/atelectasis, and minimal right pleural effusion. Reviewed, dictated and finalized at [facility]. Impression: Probable minimal bibasilar pulmonary edema/atelectasis, and minimal right pleur al effusion.
--- NOTE | ~2023-01-14 | XR_ITS ---
Supine portable view of the abdomen Clinical history: Abdominal pain Findings: Bowel gas pattern is nonspecific. Prominent stool noted in the right colon and transverse c olon, as well as at the rectum. No evidence for obstruction or free air. No abnormal mass lesion or c alcification is seen. Osseous structures are intact. Impression: Findings suggestive of constipation. Reviewed, dictated and finalized at location . Impression: Findings suggestive of constipation.
[2023-01-14 23:08] VITALS: BP 141/87; PULSE 62; RESP 23; TEMP 36.9; O2SAT 95
[2023-01-14 23:16] VITALS: BP 141/87; PULSE 62; RESP 22; O2SAT 94
--- NOTE | 2023-01-14 23:18 | ECG_ITS ---
Measurements Intervals [place] Rate: 61 P: -9 OH: 178 QRS: 31 QRSD: 109 T: 129 QT: 461 QTc: 467 Interpretive Statements SINUS RHYTHM POSSIBLE LEFT ATRIAL ENLARGEMENT [-0.1mV P-WAVE IN V1/V2] MODERATE INTRAVENTRICULAR CONDUCTION DELAY [105+ ms QRS DURATION, 80+ ms Q/S IN V1/V2, NO Q AND 60+ ms R IN I/aVL/V5/V6] NONSPECIFIC T-WAVE ABNORMALITY PROLONGED QT INTERVAL ABNORMAL ECG COMPARED TO ECG 12/03/2022 04:13:02 INTRAVENTRICULAR CONDUCTION DELAY NOW PRESENT T-WAVE ABNORMALITY NOW PRESENT PROLONGED QT INTERVAL NOW PRESENT Electronically Signed On 01-15-2023 9:12:07 CDT by Santhosh Rincon M.D.
[2023-01-14 23:20] VITALS: O2SAT 94; O2SAT 95
--- NOTE | 2023-01-14 23:28 | ED.CHESTPAIN ---
HPI - Chest Pain General Chief Complaint: Chest Pain Stated Complaint: chest pain Time Seen by Provider: 01/14/23 23:12 History of Present Illness HPI narrative: Patient states that after dinner, he started having severe pain to his chest, nonradiating, he feels generally weak all over without focal numbness or tingling. He does endorse some mild shortness of breath and nausea has had history of heart attack status post CABG, and was told that he had a AAA, but that he was not a surgical candidate. Unsure if this feels similar to the time he had a heart attack. Related Data Home Medications Medication Instructions Recorded Confirmed acetaminophen 325 mg tablet 650 mg PO Q6H PRN Pain (Scale 11/12/22 01/15/23 Score 1-3) albuterol sulfate 90 mcg/actuation 2 puff inhalation QID PRN 11/12/22 01/15/23 aerosol inhaler Shortness Of Breath Or Wheezing allopurinol 100 mg tablet 300 mg PO DAILY 11/12/22 01/15/23 aspirin 81 mg tablet 81 mg PO DAILY 11/12/22 01/15/23 atorvastatin 80 mg tablet 80 mg PO HS 11/12/22 01/15/23 cholecalciferol (vitamin D3) 50 50 mcg PO DAILY 11/12/22 01/15/23 mcg (2,000 unit) tablet cyanocobalamin (vitamin B-12) 1,000 mcg PO DAILY 11/12/22 01/15/23 1,000 mcg tablet (Vitamin B-12) docusate sodium 100 mg capsule 250 mg PO DAILY 11/12/22 01/15/23 (Colace) duloxetine 60 mg capsule,delayed 60 mg PO DAILY 11/12/22 01/15/23 release fluticasone 500 mcg-salmeterol 50 1 inh inhalation Q12H 11/12/22 01/15/23 mcg/dose blistr powdr for inhalation (Wixela Inhub) gabapentin 300 mg capsule 300 mg PO BID 11/12/22 01/15/23 hydrocodone 5 mg-acetaminophen 325 1 tablet PO Q8H PRN Pain (Scale 11/12/22 01/15/23 mg tablet Score 4-6) insulin lispro 100 unit/mL 1 sliding scale dose subcut 11/12/22 01/15/23 subcutaneous pen (Humalog KwikPen USEASDIRECTD (U-100) Insulin) lidocaine 4 % topical patch 1 patch topical DAILY 11/12/22 01/15/23 (Blue-Emu Lidocaine Patch) losartan 50 mg tablet 50 mg PO DAILY 11/12/22 01/15/23 melatonin 10 mg tablet 20 mg PO HS 11/12/22 01/15/23 metoprolol succinate 50 mg 50 mg PO DAILY 11/12/22 01/15/23 tablet,extended release 24 hr nitroglycerin 0.4 mg sublingual 0.4 mg sublingual Q5M PRN Chest 11/12/22 01/15/23 tablet Pain omeprazole 40 mg capsule,delayed 40 mg PO DAILY 11/12/22 01/15/23 release ondansetron 4 mg disintegrating 4 mg PO Q6H PRN Nausea 11/12/22 01/15/23 tablet polyethylene glycol 3350 17 gram 17 g PO DAILY 11/12/22 01/15/23 oral powder packet (Miralax) tamsulosin 0.4 mg capsule 0.4 mg PO HS 11/12/22 01/15/23 magnesium oxide 400 mg PO DAILY 11/13/22 01/15/23 insulin detemir U-100 100 unit/mL 10 unit subcut DAILY 12/03/22 01/15/23 (3 mL) subcutaneous pen (Levemir FlexPen) umeclidinium 62.5 mcg/actuation 1 inh inhalation DAILY 01/15/23 01/15/23 blister powder for inhalation (Incruse Ellipta) Allergies Allergy/AdvReac Type Severity Reaction Status Date / Time tetracycline Allergy Unknown Rash Verified 01/15/23 03:17 Review of Systems Review of Systems: CONST: No fever. HEENT: No sore throat C/V: Chest pain RESP: Difficulty breathing GI: Nausea : No dysuria. M/S: No joint pain. SKIN: No rash. NEURO: [Generalized weakness, no focal numbness or tingling] PSYCH: [No depression] PMFSH Past Medical History Medical History Anemia BPH (benign prostatic hyperplasia) CAD (coronary artery disease) Gout HTN (hypertension), malignant Hyperlipidemia Pneumonia Prostate cancer Surgical History Surgical History H/O cataract extraction H/O prostatectomy Hx of CABG Family History Family History Mother Heart disease Cerebrovascular accident Father Hypertension Acute myocardial infarction Social History Social History Social Histo
[2023-01-14 23:34] LABS: Basophils Percent Auto 0.4 % (0.2-1.2); Eosinophils Absolute Auto 0.2 K/mm3 (0-0.3); Eosinophils Percent Auto 2.8 % (0-4.4); Hematocrit 32.1 % (42.0-52.0); Hemoglobin 9.8 g/dL (14.0-18.0); Immature Granulocyte Absolute 0.01 K/mm3 (0.00-0.031); Immature Granulocyte Percent A 0.1 % (0-0.5); Lymphocytes Percent Auto 19.4 % (18.3-44.2); Mean Corpuscular HGB Conc 30.5 g/dl (32-36); Mean Corpuscular Volume 108.1 fl (80-100); Mean Platelet Volume 9.8 fl (7.4-10.4); Monocytes Absolute Auto 0.4 K/mm3 (0.1-0.6); Monocytes Percent Auto 6.1 % (2.6-8.5); Neutrophils Absolute Auto 5.1 K/mm3 (1.3-6.7); Neutrophils Percent Auto 71.2 % (45.5-73.1); Platelet Count Result 224 k/mm3 (150-375); Red Blood Count 2.97 M/mm3 (4.6-6.20); Red Cell Distribution Width 15.6 % (11.5-14.5); White Blood Count 7.2 K/mm3 (4.5-10.0)
[2023-01-14 23:43] LABS: Alanine Aminotransferase 11 U/L (6-50); Alkaline Phosphatase 73 U/L (38-126); Anion Gap 3 mmol/L (8-16); Aspartate Amino Transferase 18 U/L (17-59); Bilirubin,Total 0.4 mg/dL (0.2-1.3); Blood Urea Nitrogen 17 mg/dL (9-20); Calcium 8.2 mg/dL (8.4-10.2); Carbon Dioxide 27 mmol/L (22-30); Chloride 110 mmol/L (98-107); Estimated CRCL calculation 47 ml/min; Estimated Glomerular Filt Rate > 60; Glucose 132 mg/dL (65-110); Lipase 30 U/L (23-300); Potassium 4.6 mmol/L (3.4-5.0); Sodium 140 mmol/L (137-145)
[2023-01-14 23:48] LABS: Partial Thromboplastin Time 26.3 SECONDS (22.3-36.8); Prothrombin Time 13.3 Seconds (11.1-14.7)
[2023-01-15] VITALS (17 sets, daily range): BP systolic 117–140; BP diastolic 57–98; PULSE 63–112; RESP 18–24; TEMP 35.7–36.6; O2SAT 91–98; BMI 26.6
[2023-01-15 00:03] LABS: Troponin I 0.028 ng/mL (0.000-0.034)
[2023-01-15] MEDS: PANTOPRAZOLE SODIUM IV 40 MG VIAL IV PUSH (00:03)
[2023-01-15] MEDS: MORPHINE SULFATE (*CRX) 2 MG/ML INJ IV PUSH (00:04)
[2023-01-15] MEDS: ONDANSETRON INJ 4 MG/2 ML VIAL IV PUSH (00:04)
--- NOTE | 2023-01-15 01:32 | PM.IMHP ---
H&P: HPI History of Present Illness Date/Time: 01/15/23 01:32 Chief Complaint: Chest pain Narrative: This is a 77-year-old male with past medical history significant for insulin-dependent diabetes mellitus, hypertension, congestive heart failure, ejection fraction 35%, chronic kidney disease. Patient recently discharged from [facility] treated for acute kidney injury, congestive heart failure exacerbation, sepsis, right lower lobe pneumonia. Patient presents today to the emergency room pointing to ribcage pain, is not able to provide really meaningful history but denies any fevers, rigors, chills, nausea, vomiting. However preliminary workup was done chest x-ray and CT of the chest was reported as. XR chest 1V portable DATE: 01/14/2023 23:35 INDICATION: Chest pain. Right pleural effusion.? TECHNIQUE: Portable AP chest on at 2331 hours? COMPARISON: 12/03/2022 portable AP chest at 0446 hours? FINDINGS: Status post sternotomy and coronary artery bypass graft surgery. A stent device overlies the right inferomedial cardiac silhouette. Aortic arch calcification and mild unfolding. There is mild pulmonary vascular congestion and redistribution. There is prominence of the minor fissure consistent with subpleural edema. Mary Kate B-lines are noted, consistent with pulmonary interstitial edema. There is patchy infiltrate in the right mid and both lower lung zones and mild right pleural effusion. Osteopenia. Old lateral left seventh rib healed fracture. Dextroscoliosis and degenerative spurring of the thoracic spine.? IMPRESSION: Congestive heart failure, mild increased right pleural effusion since 12/03/2022 Right mid and bilateral lower lung infiltrates and/or atelectasis are again noted, which may be due to pulmonary edema, pneumonia and/or aspiration pneumonitis EXAMINATION: CTA chest abdomen pelvis DATE: 01/15/2023 00:00 INDICATION: Crushing chest pain. History of abdominal aortic aneurysm. TECHNIQUE: Computed tomography angiography (CTA) of the chest, abdomen and pelvis was performed with 100 mL Omnipaque-350 intravenous contrast timed to evaluate the pulmonary arteries. Coronal maximum intensity projection 3D-reconstructions were created by the technologist. Automated exposure control and iterative reconstruction technique were employed. Exam dose:? 1006.34 mGy-cm total exam DLP.? COMPARISON: 01/14/2023 portable AP chest FINDINGS: Status post sternotomy. There is extensive atherosclerotic calcification of the coronary arteries. There is atherosclerotic calcification of the thoracic aorta and great vessels. No thoracic aortic aneurysm or dissection is detected. Cardiomegaly. No pericardial effusion. Moderately large bilateral pleural effusions with bilateral dependent lower lobe mild compressive atelectasis. Mild patchy bilateral pulmonary infiltrates involving right upper lobe, dependent left upper lobe, dependent middle lobe Mild mediastinal lymph node prominence, possibly reactive. There is hepatic steatosis with relative sparing near the gallbladder. No hepatic, splenic, pancreatic, and adrenal or renal space-occupying mass lesion or urinary tract calculus or hydroureteronephrosis is detected. 5.2 x 3.8 cm distal abdominal aortic aneurysm extending into the proximal right common iliac artery. No evidence of aortic rupture. There is atherosclerotic calcification of celiac and superior mesenteric, renal and inferior mesenteric arteries in addition to the iliac and femoral arteries. No intraperitoneal or retroperitoneal or pelvic mass lesion or adenopathy or ascites is detected. There is a prominent of fecal material in the rectum and sigmoid colon in particular. No bowel obstruction or intraperitoneal free air is detected. Surgical clips, right lower quadrant, probably due to appendectomy. Moderate diffuse thickening of the urinary bladder wall. No suspicious osteolytic or osteoblastic lesions are noted. IMPRESSION:? Status post ster
--- NOTE | 2023-01-15 02:58 | ADMGEN ---
This patient, Francisco J Campoverde, was admitted to IMU Room 206-02 on 01/15/23 at 0250. Patient/family oriented to hospital policies and general routines including ID bracelet, bed and alarms, visiting hours, pain management, procedures, bathroom and other care routines, personal items, smoking policy, room service/diet, and visiting hours. Information on how to activate the Rapid Response Team has been discussed. Patient/Family are encouraged to report perceived risks to care and to ask questions if they do not understand what they are told or what they should do.
[2023-01-15 03:23] LABS: Troponin I 0.025 ng/mL (0.000-0.034)
[2023-01-15] MEDS: AZITHROMYCIN 500 MG/NS 250 ML 500 MG/250 ML BAG 250 MG IVPB (04:00)
[2023-01-15] MEDS: CEFEPIME 1 GM/NS 50 ML 1 GM/50 ML BAG IVPB ×2 (04:01→16:00)
[2023-01-15] MEDS: MORPHINE SULFATE (*CRX) 2 MG/ML INJ 1 MG IV PUSH (05:35)
[2023-01-15 06:16] LABS: Troponin I 0.022 ng/mL (0.000-0.034)
[2023-01-15] MEDS: METOPROLOL SUCCINATE EXT REL 50 MG TABCR PO (09:40)
[2023-01-15] MEDS: allopurinoL 300 MG TABLET PO (09:40)
[2023-01-15] MEDS: CLOPIDOGREL BISULFATE 75 MG TABLET PO (09:40)
[2023-01-15] MEDS: MAGNESIUM OXIDE 400 MG TABLET PO (09:41)
[2023-01-15] MEDS: LOSARTAN POTASSIUM 50 MG TABLET PO (09:41)
[2023-01-15] MEDS: CHOLECALCIFEROL 1,000 UNITS TABLET 2000 UNITS PO (09:41)
[2023-01-15] MEDS: DULoxetine HCL 60 MG CAPSULE.DR PO (09:42)
[2023-01-15] MEDS: GABAPENTIN 300 MG CAPSULE PO ×2 (09:42→17:49)
[2023-01-15] MEDS: ASPIRIN 81 MG ENTERIC TABLET PO (09:42)
[2023-01-15] MEDS: polyethylene glycoL 3350 17 GM POWD.PACK PO (09:45)
[2023-01-15] MEDS: PANTOPRAZOLE 40 MG TABLET PO ×2 (09:54→20:18)
[2023-01-15] MEDS: UMECLIDINIUM BROMIDE 62.5 MCG ELLIPTA 1 PUFF INHALATION (10:06)
[2023-01-15] MEDS: FLUTICASONE/SALMETEROL 230-21 MCG INHALER 1 PUFF 2 PUFF INHALATION ×2 (10:06→20:32)
[2023-01-15] MEDS: FUROSEMIDE INJ 40 MG/4 ML VIAL IV PUSH ×2 (10:28→17:49)
[2023-01-15] MEDS: DOCUSATE SODIUM 100 MG CAPSULE PO ×2 (15:36→20:18)
[2023-01-15 16:20] LABS: Glucose Point of Care 161 mg/dl (65-105)
[2023-01-15] MEDS: ATORVASTATIN 40 MG TABLET 80 MG PO (20:17)
[2023-01-15] MEDS: MELATONIN 5 MG TABLET 20 MG PO (20:18)
[2023-01-15] MEDS: TAMSULOSIN HCL 0.4 MG CAPSULE PO (20:18)
[2023-01-16] VITALS (12 sets, daily range): BP systolic 96–103; BP diastolic 45–53; PULSE 55–120; RESP 18–20; TEMP 36.4–36.9; O2SAT 95–100
[2023-01-16] MEDS: AZITHROMYCIN 500 MG/NS 250 ML 500 MG/250 ML BAG 250 MG IVPB (03:25)
[2023-01-16] MEDS: CEFEPIME 1 GM/NS 50 ML 1 GM/50 ML BAG IVPB ×2 (03:25→15:02)
[2023-01-16 05:28] LABS: Basophils Absolute Auto 0.1 K/mm3 (0.0-0.1); Basophils Percent Auto 0.4 % (0.2-1.2); Eosinophils Absolute Auto 0.1 K/mm3 (0-0.3); Eosinophils Percent Auto 1.1 % (0-4.4); Hemoglobin 9.1 g/dL (14.0-18.0); Immature Granulocyte Absolute 0.06 K/mm3 (0.00-0.031); Immature Granulocyte Percent A 0.5 % (0-0.5); Lymphocytes Absolute Auto 1.85 K/mm3 (0.9-3.2); Lymphocytes Percent Auto 15.8 % (18.3-44.2); Mean Corpuscular HGB Conc 30.3 g/dl (32-36); Mean Corpuscular Hemoglobin 32.4 pg (26-34); Mean Corpuscular Volume 106.8 fl (80-100); Mean Platelet Volume 10.5 fl (7.4-10.4); Monocytes Percent Auto 8.5 % (2.6-8.5); Neutrophils Absolute Auto 8.6 K/mm3 (1.3-6.7); Neutrophils Percent Auto 73.7 % (45.5-73.1); Platelet Count Result 216 k/mm3 (150-375); Red Blood Count 2.81 M/mm3 (4.6-6.20); Red Cell Distribution Width 15.2 % (11.5-14.5); White Blood Count 11.7 K/mm3 (4.5-10.0)
[2023-01-16 05:42] LABS: Anion Gap 6 mmol/L (8-16); Blood Urea Nitrogen 24 mg/dL (9-20); Calcium 7.8 mg/dL (8.4-10.2); Carbon Dioxide 26 mmol/L (22-30); Chloride 104 mmol/L (98-107); Estimated CRCL calculation 37 ml/min; Estimated Glomerular Filt Rate 49; Glucose 121 mg/dL (65-110); Sodium 136 mmol/L (137-145)
[2023-01-16] MEDS: FLUTICASONE/SALMETEROL 230-21 MCG INHALER 1 PUFF 2 PUFF INHALATION ×2 (07:57→20:47)
[2023-01-16] MEDS: UMECLIDINIUM BROMIDE 62.5 MCG ELLIPTA 1 PUFF INHALATION (07:57)
[2023-01-16] MEDS: ASPIRIN 81 MG ENTERIC TABLET PO (08:03)
[2023-01-16] MEDS: MAGNESIUM OXIDE 400 MG TABLET PO (08:03)
[2023-01-16] MEDS: FUROSEMIDE INJ 40 MG/4 ML VIAL IV PUSH ×2 (08:03→17:12)
[2023-01-16] MEDS: DULoxetine HCL 60 MG CAPSULE.DR PO (08:03)
[2023-01-16] MEDS: METOPROLOL SUCCINATE EXT REL 50 MG TABCR PO (08:03)
[2023-01-16] MEDS: allopurinoL 300 MG TABLET PO (08:03)
[2023-01-16] MEDS: CHOLECALCIFEROL 1,000 UNITS TABLET 2000 UNITS PO (08:03)
[2023-01-16] MEDS: GABAPENTIN 300 MG CAPSULE PO ×2 (08:04→17:12)
[2023-01-16] MEDS: CLOPIDOGREL BISULFATE 75 MG TABLET PO (08:04)
[2023-01-16] MEDS: DOCUSATE SODIUM 100 MG CAPSULE PO ×2 (08:04→20:51)
[2023-01-16] MEDS: LOSARTAN POTASSIUM 50 MG TABLET PO (08:04)
[2023-01-16] MEDS: PANTOPRAZOLE 40 MG TABLET PO ×2 (08:04→20:52)
[2023-01-16] MEDS: polyethylene glycoL 3350 17 GM POWD.PACK PO (08:04)
[2023-01-16] MEDS: HYDROcodone/acetaminophen (*CRX) 5-325 MG TABLET 1 TAB PO (11:10)
--- NOTE | 2023-01-16 11:25 | PM.IMPN ---
Progress Note: A&P Assessment and Plan (1) Pleural effusion: Code(s): J90 - Pleural effusion, not elsewhere classified Status: Acute Assessment and Plan: Gentle diuresis Repeat chest x-ray in a.m. (2) CAD (coronary artery disease): Code(s): I25.10 - Atherosclerotic heart disease of [place] coronary artery without angina pectoris Status: Acute Assessment and Plan: Continue to monitor Supportive care Patient is a do not resuscitate do not intubate (3) HTN (hypertension), malignant: Code(s): I10 - Essential (primary) hypertension Status: Acute Assessment and Plan: Restart home meds as needed (4) Chest pain: Code(s): R07.9 - Chest pain, unspecified Status: Acute Assessment and Plan: Supportive care Likely to be secondary to pleural effusion (5) Pneumonia: Qualifiers: Laterality: right Lung location: unspecified part of lung Pneumonia type: due to unspecified organism Qualified Code(s): J18.9 - Pneumonia, unspecified organism Code(s): J18.9 - Pneumonia, unspecified organism Status: Acute Assessment and Plan: Continue antibiotics. (6) CHF (congestive heart failure): Code(s): I50.9 - Heart failure, unspecified Status: Acute Assessment and Plan: Mild volume overload. Continue diuretic. Subjective Date/time seen: 01/16/23 11:25 Interval history: No complaints Exam Narrative: Patient is laying in a stretcher Const: General: comfortable, no acute distress, well developed, alert, awake, ill appearing chronically and average body habitus Nutritional Appearance: average body habitus Orientation/consciousness: patient oriented x3 HENMT: Head: normal to inspection, normocephalic and atraumatic Ears: hearing grossly normal bilaterally Face/Nose/Sinus: normal facial exam Face and sinus: normal facial exam Eyes: General: appearance normal, both eyes and all related structures Pupils: Equal, round and reactive pupils present EOM: EOMs intact bilaterally Neck: Neck: full ROM, no lymphadenopathy and no JVD Thyroid: thyroid normal Lymphatic: no lymphadenopathy noted Resp: Effort & Inspection: normal respiratory effort and able to speak in complete sentences Auscultation: diminished lung sounds on the right in the lower lung abreu and bilateral in the lower lung abreu Cardio: Jugular venous distension: no JVD Rate: regular rate Rhythm: regular rhythm Heart sounds: S1 normal heart sound present and S2 normal heart sound present GI: Inspection: normal to inspection and no visible herniation : General: Yes deferred Skin: Rashes: no rashes Wounds: no wounds Neuro: General: patient oriented x3, CN's II-XI intact bilaterally and Unable to assess gait Cranial nerves: Yes CN's II-XII intact bilaterally and Yes Equal, round and reactive pupils present Cognition (Neuro): normal cognition Speech: normal speech Gait exam (Neuro): Unable to assess gait Motor exam (neuro): 5/5 motor strength present throughout Sensory Exam: No Sensory deficit (Neuro) Extrem: General: normal to inspection, full ROM, no joint enlargement and no pedal edema Objective Data Vital Signs Vital Signs: Vital Signs - 24 hr 01/15/23 12:00 01/15/23 12:00 01/15/23 16:00 Temperature 96.6 F L Pulse Rate 92 Respiratory Rate 20 Blood Pressure 125/81 Pulse Oximetry 98 Oxygen Delivery Room Air Room Air 01/15/23 12:00 01/15/23 14:00 01/15/23 16:00 Temperature Pulse Rate 89 80 78 Respiratory Rate Blood Pressure Pulse Oximetry Oxygen Delivery 01/15/23 16:00 01/15/23 18:00 01/15/23 20:00 Temperature 97.9 F 97.6 F Pulse Rate 70 68 112 H Respiratory Rate 24 H 18 Blood Pressure 117/57 L 123/69 Pulse Oximetry 94 95 Oxygen Delivery 01/15/23 20:32 01/15/23 20:00 01/15/23 20:00 Temperature Pulse Rate 64 72 72 Respiratory Rate 18 Blood Pressure Pulse Oxime
[2023-01-16] MEDS: TAMSULOSIN HCL 0.4 MG CAPSULE PO (20:52)
[2023-01-16] MEDS: ATORVASTATIN 40 MG TABLET 80 MG PO (20:52)
[2023-01-16] MEDS: MELATONIN 5 MG TABLET 20 MG PO (20:52)
[2023-01-17] VITALS (7 sets, daily range): BP systolic 84–111; BP diastolic 50–67; PULSE 51–73; RESP 16–20; TEMP 36.2–36.6; O2SAT 95–99
[2023-01-17 01:23] LABS: Anion Gap 6 mmol/L (8-16); Blood Urea Nitrogen 34 mg/dL (9-20); Calcium 7.4 mg/dL (8.4-10.2); Carbon Dioxide 26 mmol/L (22-30); Chloride 99 mmol/L (98-107); Estimated CRCL calculation 33 ml/min; Estimated Glomerular Filt Rate 42; Glucose 158 mg/dL (65-110); Magnesium 1.5 mg/dL (1.6-2.3); Phosphorus 4.5 mg/dL (2.5-4.5); Potassium 3.7 mmol/L (3.4-5.0); Sodium 131 mmol/L (137-145)
[2023-01-17] MEDS: CEFEPIME 1 GM/NS 50 ML 1 GM/50 ML BAG IVPB (02:44)
[2023-01-17] MEDS: AZITHROMYCIN 500 MG/NS 250 ML 500 MG/250 ML BAG 250 MG IVPB (02:44)
[2023-01-17 04:36] LABS: Basophils Percent Auto 0.3 % (0.2-1.2); Eosinophils Absolute Auto 0.1 K/mm3 (0-0.3); Eosinophils Percent Auto 1.9 % (0-4.4); Hematocrit 26.4 % (42.0-52.0); Hemoglobin 8.6 g/dL (14.0-18.0); Immature Granulocyte Absolute 0.03 K/mm3 (0.00-0.031); Immature Granulocyte Percent A 0.4 % (0-0.5); Lymphocytes Absolute Auto 1.25 K/mm3 (0.9-3.2); Lymphocytes Percent Auto 17.3 % (18.3-44.2); Mean Corpuscular HGB Conc 32.6 g/dl (32-36); Mean Corpuscular Hemoglobin 33.5 pg (26-34); Mean Corpuscular Volume 102.7 fl (80-100); Monocytes Absolute Auto 0.6 K/mm3 (0.1-0.6); Monocytes Percent Auto 7.8 % (2.6-8.5); Neutrophils Absolute Auto 5.2 K/mm3 (1.3-6.7); Neutrophils Percent Auto 72.3 % (45.5-73.1); Platelet Count Result 188 k/mm3 (150-375); Red Blood Count 2.57 M/mm3 (4.6-6.20); White Blood Count 7.2 K/mm3 (4.5-10.0)
[2023-01-17 04:51] LABS: Anion Gap 6 mmol/L (8-16); Blood Urea Nitrogen 32 mg/dL (9-20); Calcium 7.5 mg/dL (8.4-10.2); Carbon Dioxide 24 mmol/L (22-30); Chloride 103 mmol/L (98-107); Estimated CRCL calculation 33 ml/min; Estimated Glomerular Filt Rate 42; Glucose 129 mg/dL (65-110); Potassium 3.5 mmol/L (3.4-5.0); Sodium 133 mmol/L (137-145)
[2023-01-17] MEDS: PANTOPRAZOLE 40 MG TABLET PO ×2 (08:29→20:49)
[2023-01-17] MEDS: METOPROLOL SUCCINATE EXT REL 50 MG TABCR PO (08:29)
[2023-01-17] MEDS: CHOLECALCIFEROL 1,000 UNITS TABLET 2000 UNITS PO (08:29)
[2023-01-17] MEDS: CLOPIDOGREL BISULFATE 75 MG TABLET PO (08:29)
[2023-01-17] MEDS: ASPIRIN 81 MG ENTERIC TABLET PO (08:29)
[2023-01-17] MEDS: GABAPENTIN 300 MG CAPSULE PO ×2 (08:30→19:22)
[2023-01-17] MEDS: allopurinoL 300 MG TABLET PO (08:30)
[2023-01-17] MEDS: MAGNESIUM OXIDE 400 MG TABLET PO (08:30)
[2023-01-17] MEDS: DOCUSATE SODIUM 100 MG CAPSULE PO ×2 (08:30→20:49)
[2023-01-17] MEDS: DULoxetine HCL 60 MG CAPSULE.DR PO (08:30)
[2023-01-17] MEDS: polyethylene glycoL 3350 17 GM POWD.PACK PO (08:30)
[2023-01-17] MEDS: LOSARTAN POTASSIUM 50 MG TABLET PO (08:30)
[2023-01-17] MEDS: FUROSEMIDE INJ 40 MG/4 ML VIAL IV PUSH ×2 (08:30→19:22)
[2023-01-17] MEDS: UMECLIDINIUM BROMIDE 62.5 MCG ELLIPTA 1 PUFF INHALATION (08:41)
[2023-01-17] MEDS: FLUTICASONE/SALMETEROL 230-21 MCG INHALER 1 PUFF 2 PUFF INHALATION (08:41)
--- NOTE | 2023-01-17 09:56 | P.CDI_ITS ---
CDI Query Clarification Request Documented history of CHF. CHF noted on the assessment and plan. Pulmonary edema and CHF noted on the 01/15/23 chest xray. Patient receiving furosemide. Please specify type and acuity of heart failure if known. * Acute * Chronic * Acute on Chronic * Unknown * Systolic * Diastolic * Combined Systolic and Diastolic * Unknown
--- NOTE | 2023-01-17 09:56 | WPDCDIQUERY2 ---
CDI Query Clarification Request Documented history of CHF. CHF noted on the assessment and plan. Pulmonary edema and CHF noted on the 01/15/23 chest xray. Patient receiving furosemide. Please specify type and acuity of heart failure if known. Acute Chronic Acute on Chronic Unknown Systolic Diastolic Combined Systolic and Diastolic Unknown
--- NOTE | 2023-01-17 12:23 | PM.IMPN ---
Progress Note: A&P Assessment and Plan (1) Pleural effusion: Code(s): J90 - Pleural effusion, not elsewhere classified Status: Acute Assessment and Plan: Gentle diuresis Monitor chest x-ray. (2) CAD (coronary artery disease): Code(s): I25.10 - Atherosclerotic heart disease of [place] coronary artery without angina pectoris Status: Acute Assessment and Plan: Continue to monitor Supportive care Patient is a do not resuscitate do not intubate (3) HTN (hypertension), malignant: Code(s): I10 - Essential (primary) hypertension Status: Acute Assessment and Plan: Restart home meds as needed (4) Chest pain: Code(s): R07.9 - Chest pain, unspecified Status: Acute Assessment and Plan: Supportive care Likely to be secondary to pleural effusion (5) Pneumonia: Qualifiers: Laterality: right Lung location: unspecified part of lung Pneumonia type: due to unspecified organism Qualified Code(s): J18.9 - Pneumonia, unspecified organism Code(s): J18.9 - Pneumonia, unspecified organism Status: Acute Assessment and Plan: Continue antibiotics. (6) CHF (congestive heart failure): Code(s): I50.9 - Heart failure, unspecified Status: Acute Assessment and Plan: Mild volume overload. Continue diuretic. Subjective Date/time seen: 01/17/23 12:23 Interval history: No complaints Denies chest pain or shortness of breath Exam Narrative: Patient is laying in a stretcher Const: General: comfortable, no acute distress, well developed, alert, awake, ill appearing chronically and average body habitus Nutritional Appearance: average body habitus Orientation/consciousness: patient oriented x3 HENMT: Head: normal to inspection, normocephalic and atraumatic Ears: hearing grossly normal bilaterally Face/Nose/Sinus: normal facial exam Face and sinus: normal facial exam Eyes: General: appearance normal, both eyes and all related structures Pupils: Equal, round and reactive pupils present EOM: EOMs intact bilaterally Neck: Neck: full ROM, no lymphadenopathy and no JVD Thyroid: thyroid normal Lymphatic: no lymphadenopathy noted Resp: Effort & Inspection: normal respiratory effort and able to speak in complete sentences Auscultation: diminished lung sounds on the right in the lower lung abreu and bilateral in the lower lung abreu Cardio: Jugular venous distension: no JVD Rate: regular rate Rhythm: regular rhythm Heart sounds: S1 normal heart sound present and S2 normal heart sound present GI: Inspection: normal to inspection and no visible herniation : General: Yes deferred Skin: Rashes: no rashes Wounds: no wounds Neuro: General: patient oriented x3, CN's II-XI intact bilaterally and Unable to assess gait Cranial nerves: Yes CN's II-XII intact bilaterally and Yes Equal, round and reactive pupils present Cognition (Neuro): normal cognition Speech: normal speech Gait exam (Neuro): Unable to assess gait Motor exam (neuro): 5/5 motor strength present throughout Sensory Exam: No Sensory deficit (Neuro) Extrem: General: normal to inspection, full ROM, no joint enlargement and no pedal edema Objective Data Vital Signs Vital Signs: Vital Signs - 24 hr 01/16/23 16:00 01/16/23 16:00 01/16/23 20:00 Temperature 97.9 F 97.7 F Pulse Rate 120 H 59 L 68 Respiratory Rate 20 20 Blood Pressure 100/52 L 96/49 L Pulse Oximetry 100 96 Oxygen Delivery 01/16/23 20:50 01/16/23 20:51 01/16/23 20:00 Temperature Pulse Rate 68 68 68 Respiratory Rate 20 Blood Pressure Pulse Oximetry 96 Oxygen Delivery Room Air 01/16/23 20:00 01/16/23 23:26 01/17/23 00:00 Temperature Pulse Rate 66 64 67 Respiratory Rate 20 Blood Pressure Pulse Oximetry 96 Oxygen Delivery Room Air 01/17/23 04:00 01/17/23 04:00 01/17/23 08:29 Temperature 97.8 F Pulse Rate 69 62 73 Respiratory Rat
--- NOTE | 2023-01-17 20:15 | PC.NURSE ---
Report given to Madai RIZZO. All belongings and medications transferred.
[2023-01-17] MEDS: ATORVASTATIN 40 MG TABLET 80 MG PO (20:48)
[2023-01-17] MEDS: MELATONIN 5 MG TABLET 20 MG PO (20:48)
[2023-01-17] MEDS: TAMSULOSIN HCL 0.4 MG CAPSULE PO (20:48)
[2023-01-17] MEDS: AMOXICILLIN/CLAVULANATE K 875-125 MG TAB 1 TABLET PO (20:48)
[2023-01-17 22:11] LABS: Glucose Point of Care 161 mg/dl (65-105)
[2023-01-18] VITALS (7 sets, daily range): BP systolic 101–117; BP diastolic 48–54; PULSE 55–63; RESP 14–18; TEMP 36.4–36.6; O2SAT 96–98
[2023-01-18] MEDS: FLUTICASONE/SALMETEROL 230-21 MCG INHALER 1 PUFF 2 PUFF INHALATION ×2 (08:19→19:44)
[2023-01-18] MEDS: MAGNESIUM OXIDE 400 MG TABLET PO (09:29)
[2023-01-18] MEDS: AZITHROMYCIN 250 MG TABLET 500 MG PO (09:29)
[2023-01-18] MEDS: AMOXICILLIN/CLAVULANATE K 875-125 MG TAB 1 TABLET PO ×2 (09:30→20:14)
[2023-01-18] MEDS: CLOPIDOGREL BISULFATE 75 MG TABLET PO (09:30)
[2023-01-18] MEDS: ASPIRIN 81 MG ENTERIC TABLET PO (09:30)
[2023-01-18] MEDS: PANTOPRAZOLE 40 MG TABLET PO ×2 (09:30→20:14)
[2023-01-18] MEDS: CHOLECALCIFEROL 1,000 UNITS TABLET 2000 UNITS PO (09:30)
[2023-01-18] MEDS: DOCUSATE SODIUM 100 MG CAPSULE PO ×2 (09:30→20:14)
[2023-01-18] MEDS: METOPROLOL SUCCINATE EXT REL 50 MG TABCR PO (09:30)
[2023-01-18] MEDS: DULoxetine HCL 60 MG CAPSULE.DR PO (09:30)
[2023-01-18] MEDS: polyethylene glycoL 3350 17 GM POWD.PACK PO (09:30)
[2023-01-18] MEDS: allopurinoL 300 MG TABLET PO (09:30)
[2023-01-18] MEDS: GABAPENTIN 300 MG CAPSULE PO ×2 (09:30→16:43)
--- NOTE | 2023-01-18 10:47 | PM.IMPN ---
Progress Note: A&P Assessment and Plan (1) Pleural effusion: Code(s): J90 - Pleural effusion, not elsewhere classified Status: Acute Assessment and Plan: hold diuretics for now since BUN and creatinine are going up Monitor chest x-ray. (2) CAD (coronary artery disease): Code(s): I25.10 - Atherosclerotic heart disease of [place] coronary artery without angina pectoris Status: Acute Assessment and Plan: Continue to monitor Supportive care (3) HTN (hypertension), malignant: Code(s): I10 - Essential (primary) hypertension Status: Acute Assessment and Plan: Continue metoprolol (4) Pneumonia: Qualifiers: Laterality: right Lung location: unspecified part of lung Pneumonia type: due to unspecified organism Qualified Code(s): J18.9 - Pneumonia, unspecified organism Code(s): J18.9 - Pneumonia, unspecified organism Status: Acute Assessment and Plan: Continue antibiotics. (5) CHF (congestive heart failure): Code(s): I50.9 - Heart failure, unspecified Status: Acute Assessment and Plan: Mild volume overload. Hold Lasix and losartan given rise in BUN and creatinine (6) Acute kidney injury: Code(s): N17.9 - Acute kidney failure, unspecified Status: Acute Assessment and Plan: Likely from over diuresis. Hold Lasix and losartan. Monitor BMP Subjective Date/time seen: 01/18/23 10:47 Interval history: no change overnight Review of Systems Review of Systems: Chest pain Constitutional: Constitutional: Denies chills, Denies fever(s) and Denies night sweats Cardiovascular: Cardiovascular: Reports chest pain, Denies radiating jaw, neck or arm pain and Denies palpitations Gastrointestinal: Gastrointestinal: Denies nausea and Denies vomiting Musculoskeletal: Musculoskeletal: Reports myalgias Integumentary/Breasts: Skin/Breast: Denies rash Neurologic: Denies focal weakness and Denies Sensory deficit (Neuro) Psychiatric: Psychiatric: Reports no additional psychiatric complaints and Reports as per HPI Endocrine: Endocrine: Denies polyphagia, Denies polydipsia and Denies palpitations Hematologic/Lymphatic: Hematologic/Lymphatic: Reports no additional hematologic/lymphatic complaints and Reports as per HPI Allergic/Immunologic: Allergic/Immunologic: Reports no additional allergic/immunologic complaints and Reports as per HPI Exam Const: General: comfortable, no acute distress, well developed, alert, awake, ill appearing chronically and average body habitus Nutritional Appearance: average body habitus Orientation/consciousness: patient oriented x3 HENMT: Head: normal to inspection, normocephalic and atraumatic Ears: hearing grossly normal bilaterally Face/Nose/Sinus: normal facial exam Face and sinus: normal facial exam Eyes: General: appearance normal, both eyes and all related structures Pupils: Equal, round and reactive pupils present EOM: EOMs intact bilaterally Neck: Neck: full ROM, no lymphadenopathy and no JVD Thyroid: thyroid normal Lymphatic: no lymphadenopathy noted Resp: Effort & Inspection: normal respiratory effort and able to speak in complete sentences Auscultation: diminished lung sounds on the right in the lower lung abreu and bilateral in the lower lung abreu Cardio: Jugular venous distension: no JVD Rate: regular rate Rhythm: regular rhythm Heart sounds: S1 normal heart sound present and S2 normal heart sound present GI: Inspection: normal to inspection and no visible herniation : General: Yes deferred Skin: Rashes: no rashes Wounds: no wounds Neuro: General: patient oriented x3, CN's II-XI intact bilaterally and Unable to assess gait Cranial nerves: Yes CN's II-XII intact bilaterally and Yes Equal, round and reactive pupils present Cognition (Neuro): normal cognition Speech: normal speech Gait exam (Neuro): Unable to assess gait Motor exam (neuro): 12/02
[2023-01-18] MEDS: MELATONIN 5 MG TABLET 20 MG PO (20:14)
[2023-01-18] MEDS: ATORVASTATIN 40 MG TABLET 80 MG PO (20:15)
[2023-01-18] MEDS: TAMSULOSIN HCL 0.4 MG CAPSULE PO (20:15)
[2023-01-19 05:40] VITALS: BP 113/54; PULSE 56; RESP 14; TEMP 36.9; O2SAT 98
[2023-01-19 06:02] LABS: Anion Gap 6 mmol/L (8-16); Blood Urea Nitrogen 29 mg/dL (9-20); Calcium 7.9 mg/dL (8.4-10.2); Carbon Dioxide 26 mmol/L (22-30); Chloride 105 mmol/L (98-107); Estimated CRCL calculation 33 ml/min; Estimated Glomerular Filt Rate 42; Glucose 132 mg/dL (65-110); Potassium 3.6 mmol/L (3.4-5.0); Sodium 137 mmol/L (137-145)
[2023-01-19] MEDS: UMECLIDINIUM BROMIDE 62.5 MCG ELLIPTA 1 PUFF INHALATION (08:06)
[2023-01-19] MEDS: FLUTICASONE/SALMETEROL 230-21 MCG INHALER 1 PUFF 2 PUFF INHALATION ×2 (08:06→20:22)
[2023-01-19 08:09] VITALS: O2SAT 96
[2023-01-19] MEDS: CHOLECALCIFEROL 1,000 UNITS TABLET 2000 UNITS PO (09:07)
[2023-01-19] MEDS: CLOPIDOGREL BISULFATE 75 MG TABLET PO (09:07)
[2023-01-19] MEDS: AMOXICILLIN/CLAVULANATE K 875-125 MG TAB 1 TABLET PO ×2 (09:08→20:58)
[2023-01-19] MEDS: DULoxetine HCL 60 MG CAPSULE.DR PO (09:08)
[2023-01-19] MEDS: PANTOPRAZOLE 40 MG TABLET PO ×2 (09:08→20:57)
[2023-01-19] MEDS: METOPROLOL SUCCINATE EXT REL 50 MG TABCR PO (09:08)
[2023-01-19] MEDS: allopurinoL 300 MG TABLET PO (09:08)
[2023-01-19] MEDS: ASPIRIN 81 MG ENTERIC TABLET PO (09:08)
[2023-01-19] MEDS: MAGNESIUM OXIDE 400 MG TABLET PO (09:08)
[2023-01-19] MEDS: DOCUSATE SODIUM 100 MG CAPSULE PO ×2 (09:08→20:58)
[2023-01-19] MEDS: GABAPENTIN 300 MG CAPSULE PO ×2 (09:08→17:29)
[2023-01-19] MEDS: AZITHROMYCIN 250 MG TABLET 500 MG PO (09:08)
[2023-01-19] MEDS: polyethylene glycoL 3350 17 GM POWD.PACK PO (09:08)
--- NOTE | 2023-01-19 11:47 | PM.IMPN ---
Progress Note: A&P Assessment and Plan (1) Pleural effusion: Code(s): J90 - Pleural effusion, not elsewhere classified Status: Acute Assessment and Plan: Continue to hold diuretics for now since BUN and creatinine are going up Monitor chest x-ray. (2) CAD (coronary artery disease): Code(s): I25.10 - Atherosclerotic heart disease of [place] coronary artery without angina pectoris Status: Acute Assessment and Plan: Continue to monitor Supportive care (3) HTN (hypertension), malignant: Code(s): I10 - Essential (primary) hypertension Status: Acute Assessment and Plan: Continue metoprolol (4) Pneumonia: Qualifiers: Laterality: right Lung location: unspecified part of lung Pneumonia type: due to unspecified organism Qualified Code(s): J18.9 - Pneumonia, unspecified organism Code(s): J18.9 - Pneumonia, unspecified organism Status: Acute Assessment and Plan: Continue antibiotics. (5) CHF (congestive heart failure): Code(s): I50.9 - Heart failure, unspecified Status: Acute Assessment and Plan: Mild volume overload. Hold Lasix and losartan given rise in BUN and creatinine (6) Acute kidney injury: Code(s): N17.9 - Acute kidney failure, unspecified Status: Acute Assessment and Plan: Likely from over diuresis. Encourage p.o. intake. hold Lasix and losartan. Monitor BMP Subjective Date/time seen: 01/19/23 11:47 Interval history: Patient reports no complaints at this time Review of Systems Constitutional: Constitutional: Denies chills, Denies fever(s) and Denies night sweats Cardiovascular: Cardiovascular: Reports chest pain, Denies radiating jaw, neck or arm pain and Denies palpitations Gastrointestinal: Gastrointestinal: Denies nausea and Denies vomiting Musculoskeletal: Musculoskeletal: Reports myalgias Integumentary/Breasts: Skin/Breast: Denies rash Neurologic: Denies focal weakness and Denies Sensory deficit (Neuro) Psychiatric: Psychiatric: Reports no additional psychiatric complaints and Reports as per HPI Endocrine: Endocrine: Denies polyphagia, Denies polydipsia and Denies palpitations Hematologic/Lymphatic: Hematologic/Lymphatic: Reports no additional hematologic/lymphatic complaints and Reports as per HPI Allergic/Immunologic: Allergic/Immunologic: Reports no additional allergic/immunologic complaints and Reports as per HPI Exam Const: General: comfortable, no acute distress, well developed, alert, awake, ill appearing chronically and average body habitus Nutritional Appearance: average body habitus Orientation/consciousness: patient oriented x3 HENMT: Head: normal to inspection, normocephalic and atraumatic Ears: hearing grossly normal bilaterally Face/Nose/Sinus: normal facial exam Face and sinus: normal facial exam Eyes: General: appearance normal, both eyes and all related structures Pupils: Equal, round and reactive pupils present EOM: EOMs intact bilaterally Neck: Neck: full ROM, no lymphadenopathy and no JVD Thyroid: thyroid normal Lymphatic: no lymphadenopathy noted Resp: Effort & Inspection: normal respiratory effort and able to speak in complete sentences Auscultation: diminished lung sounds on the right in the lower lung abreu and bilateral in the lower lung abreu Cardio: Jugular venous distension: no JVD Rate: regular rate Rhythm: regular rhythm Heart sounds: S1 normal heart sound present and S2 normal heart sound present GI: Inspection: normal to inspection and no visible herniation : General: Yes deferred Skin: Rashes: no rashes Wounds: no wounds Neuro: General: patient oriented x3, CN's II-XI intact bilaterally and Unable to assess gait Cranial nerves: Yes CN's II-XII intact bilaterally and Yes Equal, round and reactive pupils present Cognition (Neuro): normal cognition Speech: normal speech Gait exam (Neuro): Unable to assess gait Mo
[2023-01-19 14:00] VITALS: BP 112/65; PULSE 60; RESP 18; TEMP 36.8; O2SAT 100
--- NOTE | 2023-01-19 16:06 | PCPTNOTE ---
On 01/19/23, the student, [Luz Maria Esparza], provided care and completed [employer] documentation on this patient. I have reviewed the student's documentation and agree with the findings.
[2023-01-19 20:24] VITALS: PULSE 65; RESP 16
[2023-01-19] MEDS: TAMSULOSIN HCL 0.4 MG CAPSULE PO (20:57)
[2023-01-19] MEDS: MELATONIN 5 MG TABLET 20 MG PO (20:58)
[2023-01-19] MEDS: ATORVASTATIN 40 MG TABLET 80 MG PO (20:58)
[2023-01-19 21:35] VITALS: BP 117/67; PULSE 61; RESP 14; TEMP 36.8; O2SAT 96
[2023-01-20] VITALS (7 sets, daily range): BP systolic 110–152; BP diastolic 61–87; PULSE 52–64; RESP 14–20; TEMP 36.6–36.8; O2SAT 94–100
[2023-01-20] MEDS: polyethylene glycoL 3350 17 GM POWD.PACK PO (08:01)
[2023-01-20] MEDS: CLOPIDOGREL BISULFATE 75 MG TABLET PO (08:01)
[2023-01-20] MEDS: allopurinoL 300 MG TABLET PO (08:01)
[2023-01-20] MEDS: METOPROLOL SUCCINATE EXT REL 50 MG TABCR PO (08:01)
[2023-01-20] MEDS: CHOLECALCIFEROL 1,000 UNITS TABLET 2000 UNITS PO (08:01)
[2023-01-20] MEDS: GABAPENTIN 300 MG CAPSULE PO ×2 (08:01→18:48)
[2023-01-20] MEDS: MAGNESIUM OXIDE 400 MG TABLET PO (08:02)
[2023-01-20] MEDS: DOCUSATE SODIUM 100 MG CAPSULE PO ×2 (08:02→20:11)
[2023-01-20] MEDS: ASPIRIN 81 MG ENTERIC TABLET PO (08:02)
[2023-01-20] MEDS: AMOXICILLIN/CLAVULANATE K 875-125 MG TAB 1 TABLET PO ×2 (08:02→20:10)
[2023-01-20] MEDS: DULoxetine HCL 60 MG CAPSULE.DR PO (08:03)
[2023-01-20] MEDS: PANTOPRAZOLE 40 MG TABLET PO ×2 (08:04→20:12)
[2023-01-20] MEDS: FLUTICASONE/SALMETEROL 230-21 MCG INHALER 1 PUFF 2 PUFF INHALATION ×2 (08:19→20:27)
[2023-01-20 10:06] LABS: Anion Gap 4 mmol/L (8-16); Blood Urea Nitrogen 20 mg/dL (9-20); Calcium 8.1 mg/dL (8.4-10.2); Carbon Dioxide 32 mmol/L (22-30); Chloride 102 mmol/L (98-107); Estimated CRCL calculation 43 ml/min; Estimated Glomerular Filt Rate 59; Glucose 166 mg/dL (65-110); Potassium 3.5 mmol/L (3.4-5.0); Sodium 138 mmol/L (137-145)
--- NOTE | 2023-01-20 10:22 | PCPTNOTE ---
Patient refused treatment this session.The patient stated that there is nothing we can do for him strength-dodson in four hours before he leaves. Will continue per PT plan of care.
--- NOTE | 2023-01-20 10:28 | PM.DS ---
DS: Admitting Diagnosis Discharge Date 01/20/2023 Admitting Diagnosis CHF exacerbation pneumonia DS: Discharge Diagnosis Discharge Diagnosis (1) CHF (congestive heart failure): Code(s): I50.9 - Heart failure, unspecified Status: Acute (2) Pneumonia: Qualifiers: Laterality: right Lung location: unspecified part of lung Pneumonia type: due to unspecified organism Qualified Code(s): J18.9 - Pneumonia, unspecified organism Code(s): J18.9 - Pneumonia, unspecified organism Status: Acute DS: Summary Hospital Course Hospital Course: Assessment and Plan (1) Pleural effusion: ?Code(s): J90 - Pleural effusion, not elsewhere classified ?Status:?Acute ?Assessment and Plan: Continue to hold diuretics for now since BUN and creatinine are going up Monitor chest x-ray. (2) CAD (coronary artery disease): ?Code(s): I25.10 - Atherosclerotic heart disease of [place] coronary artery without angina pectoris ?Status:?Acute ?Assessment and Plan: Continue to monitor Supportive care (3) HTN (hypertension), malignant: ?Code(s): I10 - Essential (primary) hypertension ?Status:?Acute ?Assessment and Plan: Continue metoprolol (4) Pneumonia: ?Qualifiers: ?Laterality:?right??Lung location:?unspecified part of lung??Pneumonia type:?due to unspecified organism? Qualified Code(s):?J18.9 - Pneumonia, unspecified organism ?Code(s): J18.9 - Pneumonia, unspecified organism ?Status:?Acute ?Assessment and Plan: Continue antibiotics. (5) CHF (congestive heart failure): ?Code(s): I50.9 - Heart failure, unspecified ?Status:?Acute ?Assessment and Plan: Mild volume overload.? Hold Lasix and losartan given rise in BUN and creatinine (6) Acute kidney injury: ?Code(s): N17.9 - Acute kidney failure, unspecified ?Status:?Acute ?Assessment and Plan: Likely from over diuresis.? Encourage p.o. intake.? hold Lasix and losartan.? Monitor BMP patient is clinically stable and back to baseline. He does not have any shortness over this time and is not requiring any oxygen. He was given Lasix and losartan here which causes renal function to worsen. At this time he is being discharged but we will not send him home with the Lasix since he has a very tenuous response. monitor BMP as outpatient Time Spent with Patient Time attestation: Total time spent providing and/or coordinating discharge services: DS: Data Data Completed and Pending Labs on day of discharge: Labs from last 24 hours 01/20/23 09:34 Sodium 138 Potassium 3.5 Chloride 102 Carbon Dioxide 32 H Anion Gap 4 L BUN 20 Creatinine 1.20 Estim Creat Clear Calc 43 Estimated GFR 59 Glucose 166 H Calcium 8.1 L Discharge Plan Discharge Discharging Clinician: Bobby Thakur Anticipated Discharge Date/Time: 01/20/23 10:24 Patient Disposition: SNF Activity: no preference Diet: heart healthy Patient Instructions: Clopidogrel (By mouth), Heart Failure (DC), Chest Pain (DC) Stand Alone Forms: General Discharge Information Follow-up/Referrals: Stewart Murray [Other] Discharge Medications: Continued Incruse Ellipta 62.5 mcg/actuation blister with device 1 inh INHALATION DAILY allopurinol 100 mg tablet 300 mg PO DAILY atorvastatin 80 mg tablet 80 mg PO HS losartan 50 mg tablet 50 mg PO DAILY Rx Instructions: donot give if systolic BP<120 metoprolol succinate 50 mg tablet extended release 24 hr 50 mg PO DAILY Rx Instructions: do not give if SBP<120 gabapentin 300 mg capsule 300 mg PO BID hydrocodone-acetaminophen 5-325 mg tablet 1 tablet PO Q8H PRN (Reason: Pain (Scale Score 4-6)) acetaminophen 325 mg Tablet 650 mg PO Q6H PRN (Reason: Pain (Scale Score 1-3)) albuterol sulfate 90 mcg/actuation Hfa Aerosol Inhaler 2 puff INHALATION QID PRN (Reason:
[2023-01-20 11:30] LABS: Influenza A QL RT-PCR Negative (Negative); Influenza B QL RT-PCR Negative (Negative); RSV RNA, RT-PCR Negative (Negative); SARS-CoV-2 RNA PCR Negative (Negative)
[2023-01-20] MEDS: ATORVASTATIN 40 MG TABLET 80 MG PO (20:10)
[2023-01-20] MEDS: MELATONIN 5 MG TABLET 20 MG PO (20:11)
[2023-01-20] MEDS: TAMSULOSIN HCL 0.4 MG CAPSULE PO (20:12)
[2023-01-21] VITALS (7 sets, daily range): BP systolic 113–125; BP diastolic 58–60; PULSE 53–69; RESP 18; TEMP 36.4–37.1; O2SAT 96–100
[2023-01-21] MEDS: UMECLIDINIUM BROMIDE 62.5 MCG ELLIPTA 1 PUFF INHALATION (08:28)
[2023-01-21] MEDS: FLUTICASONE/SALMETEROL 230-21 MCG INHALER 1 PUFF 2 PUFF INHALATION ×2 (08:29→21:18)
[2023-01-21] MEDS: PANTOPRAZOLE 40 MG TABLET PO ×2 (09:20→20:36)
[2023-01-21] MEDS: allopurinoL 300 MG TABLET PO (09:22)
[2023-01-21] MEDS: GABAPENTIN 300 MG CAPSULE PO ×2 (09:22→16:50)
[2023-01-21] MEDS: CLOPIDOGREL BISULFATE 75 MG TABLET PO (09:22)
[2023-01-21] MEDS: MAGNESIUM OXIDE 400 MG TABLET PO (09:22)
[2023-01-21] MEDS: polyethylene glycoL 3350 17 GM POWD.PACK PO (09:22)
[2023-01-21] MEDS: DOCUSATE SODIUM 100 MG CAPSULE PO ×2 (09:22→20:35)
[2023-01-21] MEDS: AMOXICILLIN/CLAVULANATE K 875-125 MG TAB 1 TABLET PO ×2 (09:22→20:34)
[2023-01-21] MEDS: CHOLECALCIFEROL 1,000 UNITS TABLET 2000 UNITS PO (09:23)
[2023-01-21] MEDS: DULoxetine HCL 60 MG CAPSULE.DR PO (09:23)
[2023-01-21] MEDS: ASPIRIN 81 MG ENTERIC TABLET PO (09:23)
[2023-01-21] MEDS: METOPROLOL SUCCINATE EXT REL 50 MG TABCR PO (09:23)
--- NOTE | 2023-01-21 12:55 | PM.IMPN ---
Progress Note: A&P Assessment and Plan (1) CHF (congestive heart failure): Code(s): I50.9 - Heart failure, unspecified Status: Acute Assessment and Plan: Mild volume overload. Hold Lasix and losartan given rise in BUN and creatinine (2) Pneumonia: Qualifiers: Laterality: right Lung location: unspecified part of lung Pneumonia type: due to unspecified organism Qualified Code(s): J18.9 - Pneumonia, unspecified organism Code(s): J18.9 - Pneumonia, unspecified organism Status: Acute Assessment and Plan: Continue antibiotics. (3) Pleural effusion: Code(s): J90 - Pleural effusion, not elsewhere classified Status: Acute Assessment and Plan: Improving (4) Acute kidney injury: Code(s): N17.9 - Acute kidney failure, unspecified Status: Acute Assessment and Plan: Resolved (5) Iron deficiency anemia: Code(s): D50.9 - Iron deficiency anemia, unspecified Status: Acute Assessment and Plan: Hgb stabe at 8.6 on 12/2022 Subjective Date/time seen: 01/21/23 12:55 Interval history: Remains hospitalized due to disposition issues. Awaiting acceptance and transport to [facility] and [facility]. Denied chest pain shortness of breath or bleeding. Good appetite. No GI or issues. Able to walk with walker and gait belt today. Not requiring Edgar lift. Review of Systems Review of Systems: All systems reviewed & are unremarkable except as noted in HPI and below Exam Narrative: HEENT: PERRL, sclerae nonicteric, pharyngeal mucosa pink and intact NECK: No JVD, adenopathy, or thyromegaly CHEST: Clear to auscultation. Normal effort. HEART: NL S1/S2, regular, no murmur ABDOMEN: BS+, soft, nontender, no mass, no bruits EXTREMITIES: No cyanosis, edema, or clubbing NEUROLOGIC: CN intact and symmetric to inspection. MUSCULOSKELETAL: Tone and strength symmetric. PSYCH: Alert. Oriented to person, place, and time. Objective Data Vital Signs Vital Signs: Vital Signs - 24 hr 01/20/23 14:00 01/20/23 20:34 01/20/23 21:43 Temperature 98.2 F 97.8 F Pulse Rate 62 57 L 56 L Respiratory Rate 14 20 Blood Pressure 152/87 H 110/65 Pulse Oximetry 96 94 96 Oxygen Delivery Room Air Fraction of Inspired Oxygen 01/21/23 00:47 01/21/23 06:00 01/21/23 08:31 Temperature 97.5 F L Pulse Rate 53 L 56 L Respiratory Rate 18 Blood Pressure 113/58 L Pulse Oximetry 96 99 99 Oxygen Delivery Room Air Room Air Fraction of Inspired Oxygen 01/21/23 08:31 01/21/23 09:23 Temperature Pulse Rate 56 L 56 L Respiratory Rate 18 Blood Pressure Pulse Oximetry Oxygen Delivery Fraction of Inspired Oxygen Intake/Output Intake/Output: Intake & Output 01/18/23 01/19/23 01/20/23 01/21/23 23:59 23:59 23:59 23:59 Intake Total 1502 860 860 869 Output Total 29[address] [place] [phone] Meds/Results Medications: Active Medications Generic Name Dose Route Start Last Admin Trade Name Freq PRN Reason Stop Dose Admin Acetaminophen 1,000 mg 01/15/23 05:28 Acetaminophen 500 Mg Tablet PO Q6H PRN Mild Pain (1-3) or Fever Hydrocodone Bitart/Acetaminophen 1 tab 01/15/23 08:27 01/16/23 11:10 Hydrocodone/Acetaminophen (*Crx) 5-325 Mg Tablet PO 1 tab Q8H PRN Administration Pain (Scale Score 4-6) Albuterol 2.5 mg 01/15/23 02:35 Albuterol Sulfate Neb 2.5 Mg/3 Ml Inh INHALATION Q6HRT PRN Shortness Of Breath Albuterol 2 puff 01/15/23 08:27 Albuterol Sulfate (*Sp) Aerosol 1 Puff INHALATION QID PRN Shortness Of Breath Or Wheezing Allopurinol 300 mg 01/15/23 09:00 01/21/23 09:22 Allopurinol 300 Mg Tablet PO 300 mg DAILY SHAGGY Administration Amoxicillin/Clavulanate Potassium 1 tablet 01/17/23 21:00 01/21/23 09:22 Amoxicillin/Clavulanate K 875-125 Mg Tab PO 01/21/23 21:01 1 tablet Q12HR SHAGGY Admini
--- NOTE | 2023-01-21 13:27 | PC.NURSE ---
Pt able to ambulate with 1+gait belt+walker today from bed to chair and back. Informed Tara of care coordination, as previous discharge plans were cancelled due to facility unable to accept pt as a chaparrita lift. Spoke with pt who does not want to return to [facility] but would like to transfer to a facility near his daughters/family. Will continue to await word from [facility] and care coordination as when to discharge.
[2023-01-21] MEDS: ATORVASTATIN 40 MG TABLET 80 MG PO (20:34)
[2023-01-21] MEDS: MELATONIN 5 MG TABLET 20 MG PO (20:35)
[2023-01-21] MEDS: TAMSULOSIN HCL 0.4 MG CAPSULE PO (20:36)
[2023-01-22 06:00] VITALS: BP 123/57; PULSE 59; RESP 20; TEMP 36.6; O2SAT 97
[2023-01-22 06:59] LABS: Hematocrit 31.2 % (42.0-52.0); Hemoglobin 9.4 g/dL (14.0-18.0); Mean Corpuscular HGB Conc 30.1 g/dl (32-36); Mean Corpuscular Hemoglobin 31.6 pg (26-34); Mean Corpuscular Volume 105.1 fl (80-100); Platelet Count Result 251 k/mm3 (150-375); Red Blood Count 2.97 M/mm3 (4.6-6.20); Red Cell Distribution Width 14.6 % (11.5-14.5); White Blood Count 7.5 K/mm3 (4.5-10.0)
[2023-01-22 07:11] LABS: Albumin Level 2.9 g/dL (3.5-5.1); Anion Gap 3 mmol/L (8-16); Blood Urea Nitrogen 17 mg/dL (9-20); Calcium 8.7 mg/dL (8.4-10.2); Carbon Dioxide 32 mmol/L (22-30); Chloride 103 mmol/L (98-107); Estimated CRCL calculation 51 ml/min; Estimated Glomerular Filt Rate > 60; Glucose 127 mg/dL (65-110); Potassium 4.7 mmol/L (3.4-5.0); Sodium 138 mmol/L (137-145)
[2023-01-22] MEDS: UMECLIDINIUM BROMIDE 62.5 MCG ELLIPTA 1 PUFF INHALATION (07:21)
[2023-01-22] MEDS: FLUTICASONE/SALMETEROL 230-21 MCG INHALER 1 PUFF 2 PUFF INHALATION ×2 (07:22→20:04)
[2023-01-22 09:00] VITALS: PULSE 68
[2023-01-22] MEDS: polyethylene glycoL 3350 17 GM POWD.PACK PO (09:00)
[2023-01-22] MEDS: METOPROLOL SUCCINATE EXT REL 50 MG TABCR PO (09:00)
[2023-01-22] MEDS: CLOPIDOGREL BISULFATE 75 MG TABLET PO (09:01)
[2023-01-22] MEDS: GABAPENTIN 300 MG CAPSULE PO ×2 (09:01→17:06)
[2023-01-22] MEDS: DOCUSATE SODIUM 100 MG CAPSULE PO ×2 (09:01→20:50)
[2023-01-22] MEDS: ASPIRIN 81 MG ENTERIC TABLET PO (09:01)
[2023-01-22] MEDS: PANTOPRAZOLE 40 MG TABLET PO ×2 (09:01→20:51)
[2023-01-22] MEDS: allopurinoL 300 MG TABLET PO (09:01)
[2023-01-22] MEDS: DULoxetine HCL 60 MG CAPSULE.DR PO (09:01)
[2023-01-22] MEDS: MAGNESIUM OXIDE 400 MG TABLET PO (09:01)
[2023-01-22] MEDS: CHOLECALCIFEROL 1,000 UNITS TABLET 2000 UNITS PO (09:01)
--- NOTE | 2023-01-22 09:54 | PM.IMPN ---
Progress Note: A&P Assessment and Plan (1) CHF (congestive heart failure): Code(s): I50.9 - Heart failure, unspecified Status: Acute Assessment and Plan: Mild volume overload. Hold Lasix and losartan given rise in BUN and creatinine (2) Pneumonia: Qualifiers: Laterality: right Lung location: unspecified part of lung Pneumonia type: due to unspecified organism Qualified Code(s): J18.9 - Pneumonia, unspecified organism Code(s): J18.9 - Pneumonia, unspecified organism Status: Acute Assessment and Plan: Continue antibiotics. (3) Pleural effusion: Code(s): J90 - Pleural effusion, not elsewhere classified Status: Acute Assessment and Plan: Improving (4) Acute kidney injury: Code(s): N17.9 - Acute kidney failure, unspecified Status: Acute Assessment and Plan: Resolved (5) Iron deficiency anemia: Code(s): D50.9 - Iron deficiency anemia, unspecified Status: Acute Assessment and Plan: Hgb stabe at 9.4 on 01/22/2023 (6) Dorsalgia of thoracolumbar region: Code(s): M54.6 - Pain in thoracic spine; M54.50 - Low back pain, unspecified Status: Acute Assessment and Plan: DDD and spinal stenosis by hx No neurological symptoms 01/22 added PRN PO MSIR 15mg Subjective Date/time seen: 01/22/23 09:54 Interval history: Today with thoracic and lumbar back pain. Intermittent flares. Some radiation to hips, buttocks. Severe. Worse with movement. Only morphine 15mg PO helps pain. Previously saw Dr. Sol at [facility] clinic. Remains hospitalized due to disposition issues. Awaiting acceptance and transport to [facility] and [facility]. Denied chest pain shortness of breath or bleeding. Good appetite. No GI or issues. Review of Systems Review of Systems: All systems reviewed & are unremarkable except as noted in HPI and below Exam Narrative: HEENT: PERRL, sclerae nonicteric, pharyngeal mucosa pink and intact NECK: No JVD, adenopathy, or thyromegaly CHEST: Clear to auscultation. Normal effort. HEART: NL S1/S2, regular, no murmur ABDOMEN: BS+, soft, nontender, no mass, no bruits EXTREMITIES: No cyanosis, edema, or clubbing NEUROLOGIC: CN intact and symmetric to inspection. MUSCULOSKELETAL: Tone and strength symmetric distal UE and LE bilaterally PSYCH: Alert. Oriented to person, place, and time. Objective Data Vital Signs Vital Signs: Vital Signs - 24 hr 01/21/23 13:38 01/21/23 22:00 01/21/23 21:18 Temperature 97.7 F 98.7 F Pulse Rate 59 L 64 69 Respiratory Rate 18 18 18 Blood Pressure 123/59 L 125/60 Pulse Oximetry 100 99 Oxygen Delivery 01/21/23 21:18 01/22/23 06:00 01/22/23 09:00 Temperature 98 F Pulse Rate 59 L 68 Respiratory Rate 20 Blood Pressure 123/57 L Pulse Oximetry 98 97 Oxygen Delivery Room Air 01/22/23 09:01 Temperature Pulse Rate Respiratory Rate Blood Pressure Pulse Oximetry Oxygen Delivery Room Air Intake/Output Intake/Output: Intake & Output 01/19/23 01/20/23 01/21/23 01/22/23 23:59 23:59 23:59 23:59 Intake Total 664 402 4192 670 Output Total 1050 2000 1600 900 Balance -190 -1140 157 -230 Meds/Results Medications: Active Medications Generic Name Dose Route Start Last Admin Trade Name Freq PRN Reason Stop Dose Admin Acetaminophen 1,000 mg 01/15/23 05:28 Acetaminophen 500 Mg Tablet PO Q6H PRN Mild Pain (1-3) or Fever Hydrocodone Bitart/Acetaminophen 1 tab 01/15/23 08:27 01/16/23 11:10 Hydrocodone/Acetaminophen (*Crx) 5-325 Mg Tablet PO 1 tab Q8H PRN Administration Pain (Scale Score 4-6) Albuterol 2.5 mg 01/15/23 02:35 Albuterol Sulfate Neb 2.5 Mg/3 Ml Inh INHALATION Q6HRT PRN Shortness Of Breath Albuterol 2 puff 01/15/23 08:27 Albuterol Sulfate (*Sp) Aerosol 1 Puff INHALATION QID PRN Shortness Of Breath Or Wheezing Allopurinol 3
[2023-01-22] MEDS: MORPHINE SULFATE (*CRX) 15 MG TAB IR PO (12:14)
[2023-01-22 14:00] VITALS: BP 116/61; PULSE 57; RESP 18; TEMP 36.6; O2SAT 100
[2023-01-22 20:04] VITALS: PULSE 57; RESP 18
[2023-01-22 20:44] VITALS: BP 109/67; PULSE 58; RESP 18; TEMP 36.6; O2SAT 99
[2023-01-22] MEDS: ATORVASTATIN 40 MG TABLET 80 MG PO (20:50)
[2023-01-22] MEDS: MELATONIN 5 MG TABLET 20 MG PO (20:51)
[2023-01-22] MEDS: TAMSULOSIN HCL 0.4 MG CAPSULE PO (20:51)
[2023-01-23] VITALS (7 sets, daily range): BP systolic 127–153; BP diastolic 74–90; PULSE 56–90; RESP 18–22; TEMP 36.4–36.7; O2SAT 93–99
[2023-01-23 06:38] LABS: Hematocrit 31.9 % (42.0-52.0); Hemoglobin 9.9 g/dL (14.0-18.0); Mean Corpuscular Hemoglobin 32.6 pg (26-34); Mean Corpuscular Volume 104.9 fl (80-100); Platelet Count Result 267 k/mm3 (150-375); Red Blood Count 3.04 M/mm3 (4.6-6.20); Red Cell Distribution Width 14.6 % (11.5-14.5); White Blood Count 9.3 K/mm3 (4.5-10.0)
[2023-01-23 06:42] LABS: Alanine Aminotransferase 13 U/L (6-50); Albumin Level 3.2 g/dL (3.5-5.1); Alkaline Phosphatase 95 U/L (38-126); Anion Gap 2 mmol/L (8-16); Aspartate Amino Transferase 19 U/L (17-59); Bilirubin,Total 0.3 mg/dL (0.2-1.3); Blood Urea Nitrogen 18 mg/dL (9-20); Carbon Dioxide 30 mmol/L (22-30); Chloride 102 mmol/L (98-107); Estimated CRCL calculation 47 ml/min; Estimated Glomerular Filt Rate > 60; Glucose 124 mg/dL (65-110); Magnesium 1.8 mg/dL (1.6-2.3); Phosphorus 3.3 mg/dL (2.5-4.5); Potassium 5.8 mmol/L (3.4-5.0); Sodium 134 mmol/L (137-145)
[2023-01-23 07:16] LABS: Glucose Point of Care 136 mg/dl (65-105)
[2023-01-23] MEDS: FLUTICASONE/SALMETEROL 230-21 MCG INHALER 1 PUFF 2 PUFF INHALATION (08:29)
[2023-01-23] MEDS: UMECLIDINIUM BROMIDE 62.5 MCG ELLIPTA 1 PUFF INHALATION (08:32)
--- NOTE | 2023-01-23 08:40 | PCOTNOTE ---
Attempted to see Patient this session. Upon entering the room, Patient laying with no hospital gown or covers. RN confronted and verbalized, Patient has an altered mental status, yelling, refusing to participate or be covered up. Therapist attempted to assist Patient in what his wants were at this time. Patient verbalized/yelled, Leave me alone, I'm not wearing anything , and I know whats wrong with me, I need to poop . Patient was asked to participate in going down for a chest x-ray as ordered from the doctor. He refused. Patient is unable to be seen at this time due to change is status.
[2023-01-23] MEDS: DOCUSATE SODIUM 100 MG CAPSULE PO (09:10)
[2023-01-23] MEDS: SODIUM POLYSTYRENE SULFONONATE 15 GM/60 ML BTL PO (09:10)
--- NOTE | 2023-01-23 09:16 | PC.NURSE ---
When this RN arrived to floor, night RN stated pt was guarding his abdomen, writhing in pain, palpation shows tenderness most specific at left lower quadrant, and new AMS. Vitals stable. Pt refusing covers, gown, and tele. MD called at 0714 to notify of significant mental change and abdominal concern. Order received for KUB. KUB resulted as pt full of stool. Potassium from AM labs resulted; K elevated at 5.8. Provider notified. Received order for colace PO. Provider asked for bowel sounds and he would placed orders. RN assessed and noted hypo upper bowel sounds absent lower bowel sounds. Provider made aware. This RN asked if PO meds should be given; provider said to hold at this time except for kayexelate and colace. Pt was ordered a CXR, again pt refused to go downstairs and to gown. Pt refusing kayexelate, but took the colace. Pt noted to have had several bananas over the last few days. Bananas removed from breakfast tray. Will continue to push kayexelate and monitor pt. MD ordered to hold morphine at this time also.
--- NOTE | 2023-01-23 09:46 | PCNWS ---
Weekly nutritional screen. Patient is tolerating current Heart healthy diet with adequate intake 50-100%. No weight loss reported. No nutritional needs at this time.
--- NOTE | 2023-01-23 10:56 | PM.IMPN ---
Progress Note: A&P Assessment and Plan (1) CHF (congestive heart failure): Code(s): I50.9 - Heart failure, unspecified Status: Acute Assessment and Plan: Mild volume overload. Resume Lasix. Hold losartan today given hyperkalemia. (2) Pleural effusion: Code(s): J90 - Pleural effusion, not elsewhere classified Status: Acute Assessment and Plan: Improving (3) Acute kidney injury: Code(s): N17.9 - Acute kidney failure, unspecified Status: Acute Assessment and Plan: Resolved. Resume Lasix. Restart losartan gradually (4) Iron deficiency anemia: Code(s): D50.9 - Iron deficiency anemia, unspecified Status: Acute Assessment and Plan: Hgb stabe (5) Dorsalgia of thoracolumbar region: Code(s): M54.6 - Pain in thoracic spine; M54.50 - Low back pain, unspecified Status: Acute Assessment and Plan: DDD and spinal stenosis by hx No neurological symptoms 01/22 added PRN PO MSIR 15mg Subjective Date/time seen: 01/23/23 10:56 Interval history: As per the nursing staff patient was confused this morning. At the time of my examination patient did not appear confused. Review of Systems Review of Systems: All systems reviewed & are unremarkable except as noted in HPI and below Exam Narrative: HEENT: PERRL, sclerae nonicteric, pharyngeal mucosa pink and intact NECK: No JVD, adenopathy, or thyromegaly CHEST: Clear to auscultation. Normal effort. HEART: NL S1/S2, regular, no murmur ABDOMEN: BS+, soft, nontender, no mass, no bruits EXTREMITIES: No cyanosis, edema, or clubbing NEUROLOGIC: CN intact and symmetric to inspection. MUSCULOSKELETAL: Tone and strength symmetric distal UE and LE bilaterally PSYCH: Alert. Oriented to person, place, and time. Objective Data Vital Signs Vital Signs: Vital Signs - 24 hr 01/22/23 14:00 01/22/23 20:44 01/22/23 20:04 Temperature 97.9 F 97.8 F Pulse Rate 57 L 58 L 57 L Respiratory Rate 18 18 18 Blood Pressure 116/61 109/67 Pulse Oximetry 100 99 Oxygen Delivery 01/23/23 06:00 01/23/23 08:32 01/23/23 08:00 Temperature 97.6 F Pulse Rate 56 L 62 60 Respiratory Rate 18 Blood Pressure 127/77 Pulse Oximetry 98 95 Oxygen Delivery Room Air 01/23/23 08:00 Temperature Pulse Rate Respiratory Rate Blood Pressure Pulse Oximetry Oxygen Delivery Room Air Intake/Output Intake/Output: Intake & Output 01/20/23 01/21/23 01/22/23 01/23/23 23:59 23:59 23:59 23:59 Intake Total 860 / 860 1757 / 1757 1550 / 1550 50 / 50 Output Total 1999 1600 / 1600 1650 / 1650 750 / 750 Balance -1140 / -1140 157 / 157 -100 / -100 -700 / -700 Meds/Results Medications: Active Medications Generic Name Dose Route Start Last Admin Trade Name Freq PRN Reason Stop Dose Admin Acetaminophen 1,000 mg 01/15/23 05:28 Acetaminophen 500 Mg Tablet PO Q6H PRN Mild Pain (1-3) or Fever Hydrocodone Bitart/Acetaminophen 1 tab 01/15/23 08:27 01/16/23 11:10 Hydrocodone/Acetaminophen (*Crx) 5-325 Mg Tablet PO 1 tab Q8H PRN Administration Pain (Scale Score 4-6) Albuterol 2.5 mg 01/15/23 02:35 Albuterol Sulfate Neb 2.5 Mg/3 Ml Inh INHALATION Q6HRT PRN Shortness Of Breath Albuterol 2 puff 01/15/23 08:27 Albuterol Sulfate (*Sp) Aerosol 1 Puff INHALATION QID PRN Shortness Of Breath Or Wheezing Allopurinol 300 mg 01/15/23 09:00 01/22/23 09:01 Allopurinol 300 Mg Tablet PO 300 mg DAILY SHAGGY Administration Aspirin 81 mg 01/15/23 09:00 01/22/23 09:01 Aspirin 81 Mg Enteric Tablet PO 81 mg QAM SHAGGY Administration Atorvastatin Calcium 80 mg 01/15/23 21:00 01/22/23 20:50 Atorvastatin 40 Mg Tablet PO 80 mg HS SHAGGY Administration Clopidogrel Bisulfate 75 mg 01/15/23 09:00 01/22/23 09:01 Clopidogrel Bisulfate 75 Mg Tablet PO 75 mg QAM SHAGGY Administration Docusate Sodium 100 mg 01/15/23 1
[2023-01-23] MEDS: polyethylene glycoL 3350 17 GM POWD.PACK PO (11:46)
[2023-01-23] MEDS: CLOPIDOGREL BISULFATE 75 MG TABLET PO (11:46)
[2023-01-23] MEDS: CHOLECALCIFEROL 1,000 UNITS TABLET 2000 UNITS PO (11:46)
[2023-01-23] MEDS: ASPIRIN 81 MG ENTERIC TABLET PO (11:46)
[2023-01-23] MEDS: MAGNESIUM OXIDE 400 MG TABLET PO (11:46)
[2023-01-23] MEDS: allopurinoL 300 MG TABLET PO (11:47)
[2023-01-23] MEDS: DULoxetine HCL 60 MG CAPSULE.DR PO (11:47)
[2023-01-23] MEDS: METOPROLOL SUCCINATE EXT REL 50 MG TABCR PO (11:47)
[2023-01-23] MEDS: GABAPENTIN 300 MG CAPSULE PO ×2 (11:47→16:48)
[2023-01-23] MEDS: PANTOPRAZOLE 40 MG TABLET PO (11:47)
[2023-01-23 13:57] LABS: SARS-CoV-2 RNA PCR Negative (Negative)
[2023-01-23 16:08] LABS: Anion Gap 6 mmol/L (8-16); Blood Urea Nitrogen 20 mg/dL (9-20); Carbon Dioxide 26 mmol/L (22-30); Chloride 100 mmol/L (98-107); Estimated CRCL calculation 51 ml/min; Estimated Glomerular Filt Rate > 60; Glucose 144 mg/dL (65-110); Potassium 5.4 mmol/L (3.4-5.0); Sodium 132 mmol/L (137-145)
[2023-01-23] MEDS: FUROSEMIDE 20 MG TABLET PO (16:48)
--- NOTE | 2023-01-23 18:38 | PC.NURSE ---
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 okay with pt discharging, but facility and ambulance not available until tomorrow. Pt daugher states that he becomes confused like this when he receives his morphine. Pt eventually finished the last half of his kayexelate approximately 1130. Pt initially refusing his PO lasix, but it was finally given approximaely 1700. Potassium still elevated at 5.4. Provider made aware. Will recheck a BMP in the morning.
--- NOTE | 2023-01-24 04:40 | PC.NURSE ---
01/23/2023 @ 2200: Patient A&OX1 and lethargic. Arouses to verbal commands, but falls back asleep. Unable to take PO meds. Per dayshift RN, patient was A&OX3 until this morning, of which Dr. Thakur was notified. Also per dayshift RN, patients daughter stated this has happened before to pt after receiving Morphine. This evening, PA notified, PO Morphine discontinued. No new orders given.
[2023-01-24 05:19] VITALS: BP 108/69; PULSE 60; RESP 20; TEMP 36.8; O2SAT 96
[2023-01-24 06:24] LABS: Anion Gap 5 mmol/L (8-16); Blood Urea Nitrogen 19 mg/dL (9-20); Calcium 8.6 mg/dL (8.4-10.2); Carbon Dioxide 27 mmol/L (22-30); Chloride 101 mmol/L (98-107); Estimated CRCL calculation 47 ml/min; Estimated Glomerular Filt Rate > 60; Glucose 122 mg/dL (65-110); Potassium 4.6 mmol/L (3.4-5.0); Sodium 133 mmol/L (137-145)
[2023-01-24] MEDS: DULoxetine HCL 60 MG CAPSULE.DR PO (07:59)
[2023-01-24] MEDS: CHOLECALCIFEROL 1,000 UNITS TABLET 2000 UNITS PO (07:59)
[2023-01-24] MEDS: GABAPENTIN 300 MG CAPSULE PO (07:59)
[2023-01-24] MEDS: DOCUSATE SODIUM 100 MG CAPSULE PO (07:59)
[2023-01-24] MEDS: METOPROLOL SUCCINATE EXT REL 50 MG TABCR PO (07:59)
[2023-01-24] MEDS: PANTOPRAZOLE 40 MG TABLET PO (07:59)
[2023-01-24] MEDS: ASPIRIN 81 MG ENTERIC TABLET PO (07:59)
[2023-01-24] MEDS: CLOPIDOGREL BISULFATE 75 MG TABLET PO (07:59)
[2023-01-24] MEDS: allopurinoL 300 MG TABLET PO (07:59)
[2023-01-24] MEDS: MAGNESIUM OXIDE 400 MG TABLET PO (07:59)
[2023-01-24] MEDS: FUROSEMIDE 20 MG TABLET PO (08:06)
== END 2023-01-24 08:15 | DRG 186 ==
LOC: ANHED 23:33 → ANHIMU 01-15 02:13 → ANH3MEDSUR 01-17 20:15
PROVIDERS: Chiropractor; Internal Medicine; Admitting Provider Internal Medicine; Emergency Provider Emergency Medicine; Visit Provider Hospitalist
DX: J90 Pleural effusion, not elsewhere classified (principal); J18.9 Pneumonia, unspecified organism; N17.9 Acute kidney failure, unspecified; I25.10 Atherosclerotic heart disease of native coronary artery without angina pectoris; I11.0 Hypertensive heart disease with heart failure; I50.9 Heart failure, unspecified; I71.40 Abdominal aortic aneurysm, without rupture, unspecified; N40.0 Benign prostatic hyperplasia without lower urinary tract symptoms; E78.5 Hyperlipidemia, unspecified; D50.9 Iron deficiency anemia, unspecified; E11.9 Type 2 diabetes mellitus without complications; M54.6 Pain in thoracic spine; M54.50 Low back pain, unspecified; Z66 Do not resuscitate; Z20.822 Contact with and (suspected) exposure to COVID-19; I25.2 Old myocardial infarction; Z95.1 Presence of aortocoronary bypass graft; Z85.46 Personal history of malignant neoplasm of prostate; Z98.49 Cataract extraction status, unspecified eye; Z87.891 Personal history of nicotine dependence
CPT/HCPCS: 36415; 70450; 71045; 71275; 74018; 74174; 80048; 80053; 80069; 80202; 82948; 83690; 83735; 84100; 84484; 85025; 85027; 85610; 85730; 86850; 86900; 86901; 87040; 87081; 87635; 87637; 93005; 94640; 96365; 96366; 96367; 96375; 96376; 97161; 97165; 97530; 97535; 99285; A9270; C9113; G0378; J0456; J0692; J1940; J2270; J2405; J3370; Q9967